=== PATIENT | female | born 1970 | race Caucasian/White ===

== ENCOUNTER 2021-09-20 13:08 | Emergency (ER) | payer BC, SELFPAY ==
[2021-09-20 13:42] VITALS: BP 123/100; PULSE 99; RESP 20; TEMP 37.1; O2SAT 98; BMI 26.3
--- NOTE | 2021-09-20 14:01 | ED_ITS ---
HPI - General Adult General Time Seen by Provider: 14:01 Date Seen: 09/20/21 Chief complaint: Headache/Migraine Stated complaint: Dizziness, weakness, head/neck pain Time Seen by Provider: 09/20/21 13:10 Source: patient Mode of arrival: ambulatory Limitations: no limitations History of Present Illness HPI narrative: Patient is a 51 year white female had a lumbar puncture to rule out MS at [facility] 4 days ago. She has had a headache and neck stiffness and back pain since. Her neurologist wants her to have a blood patch, and she was unable to go back to [place] to get this done so she presents to our ER. She denies fever chills cough, her health history is reviewed. She is not on blood thinners by her report. Related Data Home Medications Medication Instructions Recorded Confirmed armodafinil 250 mg tablet 250 mg PO DAILY 09/20/21 09/20/21 clonazepam 2 mg tablet 2 mg PO DAILY 09/20/21 09/20/21 dextroamphetamine-amphetamine 20 20 mg PO TID 09/20/21 09/20/21 mg tablet duloxetine 60 mg capsule,delayed 60 mg PO DAILY 09/20/21 09/20/21 release omeprazole 40 mg capsule,delayed 40 mg PO DAILY 09/20/21 09/20/21 release Allergies Allergy/AdvReac Type Severity Reaction Status Date / Time prochlorperazine Allergy Verified 09/20/21 13:49 [From Compazine] Review of Systems Status of ROS: Reports: 6 or more systems reviewed and unremarkable except as noted in History and below [facility] Social History Smoking Status: Current every day smoker What tobacco products do you use: cigarettes Do you use any of these nicotine containing products: None Second hand tobacco smoke exposure: No How often do you have a drink containing alcohol: 4 or more times a week AUDIT-C Alcohol total score: 4 Non-prescribed substance use: denies use Exam Narrative: Exam Narrative: Objective: Patient is alert orient x3, noncyanotic, noted apparent distress Neck is supple nontender Blood pressure slightly elevated diastolic, afebrile HEENT otherwise unremarkable neurologic grossly nonfocal patient is ambulatory and moving well. She has no obvious nuchal rigidity but does report neck stif fness when she moves her neck around. Good peripheral perfusion noted Const: Vital Signs, click to edit/add: Vital Signs - 24 hr 09/20/21 13:42 09/20/21 15:39 09/20/21 16:00 Temperature 98.8 F Pulse Rate [Right Pulse Oximeter] 99 73 68 Respiratory Rate 20 16 16 Blood Pressure [Ri ght Upper Arm] 123/100 H 115/80 126/82 Pulse Oximetry 98 97 98 Oxygen Delivery Me thod Room Air Room Air Room Air 09/20/21 16:30 Temperature Pulse Rate [Right Pulse Oximeter] 72 Respiratory Rate 16 Blood Pressure [Ri ght Upper Arm] 124/88 Pulse Oximetry 100 Oxygen Delivery Me thod Room Air Course Vital Signs Vital signs: Initial Vital Signs Temperature 98.8 F 09/20/21 13:42 Temperature Source Oral 09/20/21 13:42 Pulse Rate 99 09/20/21 13:42 Respiratory Rate 20 09/20/21 13:42 Blood Pressure 123/100 H 09/20/21 13:42 Blood Pressure Mean 107 09/20/21 13:42 Blood Pressure Position Sitting 09/20/21 13:42 Pulse Oximetry 98 09/20/21 13:42 Oxygen Delivery Method 09/20/21 13:42 Vital Signs Temperature 98.8 F 09/20/21 13:42 Pulse Rate 99 09/20/21 13:42 Respiratory Rate 20 09/20/21 13:42 Blood Pressure 123/100 H 09/20/21 13:42 Pulse Oximetry 98 09/20/21 13:42 Oxygen Delivery Method 09/20/21 13:42 Temperature 98.8 F 09/20/21 13:42 Pulse Rate 72 09/20/21 16:30 Respiratory Rate 16 09/20/21 16:30 Blood Pressure 124/88 09/20/21 16:30 Pulse Oximetry 100 09/20/21 16:30 Oxygen Delivery Method 09/20/21 16:30 Medical Decision Making MDM Narrative Medical decision making narrative: The patient has had a lumbar puncture at [facility] to diagnose MS, and has likely a spinal headache causing most of her symptoms. Her neurologist wishes to have a blood patch, will consult with [employer] is to perform a blood patch. Will gi IV fluid and IV Dilaudid, will check labs. Addendum: The patient's lab studies look reassuring in terms of the Chem profile and CBC. The patient by Anesthesia had a blood patch pacer placed, she is given an additional 0.5 of Dilaudid IV, and received a L of fluid. The patient will be allowed to discharge home after 30 minutes. Stay recumbent for least the next 12 hours, follow anesthesia recommendations. Recheck as needed Lab Data Labs: Lab Results 09/20/21 09/20/21 Range/Units 14:10 14:10 WBC 7.52 (4.50-11.00) K/uL RBC 4.50 (4.00-5.20) m/uL Hgb 14.0 (12.0-16.0) gm/dL Hct 42.1 (33.0-51.0) % MCV 94 (80-100) fL MCH 31 (26-34) pg MCHC 33 (32-36) gm/dL RDW Coeff of Julian 12.4 (11.5-15.5) % Plt Count 328 (140-440) K/uL Neut % (Auto) 52.0 (42.0-72.0) % Lymph % (Auto) 33.5 (20-44) % [place] % (Auto) 6.6 (0.0-11.0) % Eos % (Auto) 7.3 H (0.0-7.0) % Baso % (Auto) 0.5 (0.0-3.0) % Neut # (Auto) 3.90 (1.7-7.0) K/uL Lymph # (Auto) 2.52 (0.90-2.90) K/uL [place] # (Auto) 0.50 (0.00-0.90) K/UL Eos # (Auto) 0.50 (0.00-0.50) K/uL Baso # (Auto) 0.04 (0.00-0.30) K/uL Abs Immat Gran (auto) 0.01 (0.00-0.30) K/uL Sodium 138 (135-149) mmol/L Potassium 4.3 (3.6-5.1) mmol/L Chloride 103 (96-114) mmol/L Carbon Dioxide 31 (20-32) mmol/L BUN 15 (5-24) mg/dL Creatinine 0.7 (0.5-1.5) mg/dL Estimated Creat Clear 91.01 Estimated GFR 106 ml/min Glucose 90 (60-115) mg/dL Calcium 9.6 (8.4-10.6) mg/dL Discharge Plan Discharge Clinical Impression: Spinal headache Patient Disposition: Home w/ Parent or Adult Condition: Stable Additional Instructions: Rest, fluids, follow-up as per [employer] anesthesia recommendations. Activity Level: Light activity Discharge Diet: Regular Prescriptions: No Action armodafinil 250 mg tablet 250 mg PO DAILY Label Comments: Take 1 tablet by mouth every morning clonazepam 2 mg tablet 2 mg PO DAILY dextroamphetamine-amphetamine 20 mg tablet 20 mg PO TID duloxetine 60 mg capsule,delayed release(DR/EC) 60 mg PO DAILY omeprazole 40 mg capsule,delayed release(DR/EC) 40 mg PO DAILY Follow Up/Referrals: Marlo Steward MD [Primary Care Provider] - Stand Alone Forms: [employer] Info Instructions
[2021-09-20 14:14] LABS: Basophils Absolute Auto 0.04 K/uL (0.00-0.30); Basophils Percent Auto 0.5 % (0.0-3.0); Eosinophils Percent Auto 7.3 % (0.0-7.0); Hematocrit 42.1 % (33.0-51.0); Immature Granulocytes Abs Auto 0.01 K/uL (0.00-0.30); Lymphocytes Absolute Auto 2.52 K/uL (0.90-2.90); Lymphocytes Percent Auto 33.5 % (20-44); Mean Corpuscular HGB Conc 33 gm/dL (32-36); Mean Corpuscular Hemoglobin 31 pg (26-34); Mean Corpuscular Volume 94 fL (80-100); Monocytes Percent Auto 6.6 % (0.0-11.0); Platelet Count* 328 K/uL (140-440); RDW Coefficient of Variation % 12.4 % (11.5-15.5); White Blood Count* 7.52 K/uL (4.50-11.00)
[2021-09-20 14:23] LABS: Slide Review Reflex No
[2021-09-20] MEDS: 0.9 % SODIUM CHLORIDE 1000 ml 1,000 ML 6000 ML IV (14:25)
[2021-09-20] MEDS: HYDROmorphone 0.5 mg/0.5 ml inj IVP ×2 (14:26→16:32)
[2021-09-20 14:30] LABS: Chloride* 103 mmol/L (96-114); Potassium* 4.3 mmol/L (3.6-5.1); Sodium* 138 mmol/L (135-149)
[2021-09-20 14:33] LABS: Blood Urea Nitrogen* 15 mg/dL (5-24); Carbon Dioxide* 31 mmol/L (20-32); Creatinine* 0.7 mg/dL (0.5-1.5); Est. Creatinine Clearance* 91.01; Estimated Glomerular Filt Rate 106 ml/min
[2021-09-20 14:34] LABS: Calcium* 9.6 mg/dL (8.4-10.6); Glucose* 90 mg/dL (60-115)
[2021-09-20 15:39] VITALS: BP 115/80; PULSE 73; RESP 16; O2SAT 97
--- NOTE | 2021-09-20 15:50 | P.ANBPRC_ITS ---
Meds Home Medications and Allergies Home Medications Medication Instructions Recorded Confirmed Type armodafinil 250 mg tablet 250 mg PO DAILY 09/20/21 09/20/21 History clonazepam 2 mg tablet 2 mg PO DAILY 09/20/21 09/20/21 History dextroamphetamine-amphetamine 20 20 mg PO TID 09/20/21 09/20/21 History mg tablet duloxetine 60 mg capsule,delayed 60 mg PO DAILY 09/20/21 09/20/21 History release omeprazole 40 mg capsule,delayed 40 mg PO DAILY 09/20/21 09/20/21 History release Allergies Allergy/AdvReac Type Severity Reaction Status Date / Time prochlorperazine Allergy Verified 09/20/21 13:49 [From Compazine] Results Labs Labs: Laboratory Results - last 24 hr 09/20/21 09/20/21 14:10 14:10 WBC 7.52 RBC 4.50 Hgb 14.0 Hct 42.1 MCV 94 MCH 31 MCHC 33 RDW Coeff of Julian 12.4 Plt Count 328 Neut % (Auto) 52.0 Lymph % (Auto) 33.5 [place] % (Auto) 6.6 Eos % (Auto) 7.3 H Baso % (Auto) 0.5 Neut # (Auto) 3.90 Lymph # (Auto) 2.52 [place] # (Auto) 0.50 Eos # (Auto) 0.50 Baso # (Auto) 0.04 Abs Immat Gran (auto) 0.01 Sodium 138 Potassium 4.3 Chloride 103 Carbon Dioxide 31 BUN 15 Creatinine 0.7 Estimated Creat Clear 91.01 Estimated GFR 106 Glucose 90 Calcium 9.6 Vital Signs Vital Signs: Last Vital Signs Temp 98.8 F 09/20/21 13:42 Pulse 99 09/20/21 13:42 Resp 20 09/20/21 13:42 BP 123/100 H 09/20/21 13:42 Pulse Ox 98 09/20/21 13:42 O2 Del Method 09/20/21 13:42 Weight: 73.936 kg Height: 167.64 cm Anesthesia Procedures Epidural Blood Patch Patient Location: ED Start Time: 15:00 Stop Time: 15:45 Reason for Blood Patch: spinal headache and CSF leak CUSHION INSTALLER: Tucker Winston Preanesthetic Checklist: IV checked, risks and benefits discussed, surgical consent, monitors and equipment checked, pre-op evaluation, timeout performed and anesthesia consent Patient Symptoms: postural headache and photophobia Pain (1-10): 8 Pain duration: 1 day Pain Frequency: intermittent Quality of Pain: aching, pressure and throbbing Pain exacerbated by: cough/straining, standing and sitting Pain Made Worse: body movement Pain made better: darkness and position change Diagnosis of PDPH: Yes Volume of Blood Injected (mL): 20 Patient Position: sitting Prep: Chloraprep Monitoring: cont pulse oximetry and BP monitoring Approach: midline Location: L4-5 Injection Technique: SAAD saline Injection Method: Touhy needle Needle Gauge Used: 17 Needle Length (cm): 10 cm Notes: Post dural puncture headache from diagnostic lumbar puncture at another facility
[2021-09-20 16:00] VITALS: BP 126/82; PULSE 68; RESP 16; O2SAT 98
[2021-09-20 16:30] VITALS: BP 124/88; PULSE 72; RESP 16; O2SAT 100
== END 2021-09-20 16:39 | disposition home or self-care (01) ==
LOC: ED 14:28
PROVIDERS: Emergency Provider Family Medicine; PCP Surgery
DX: T88.59XA Other complications of anesthesia, initial encounter (principal); G44.40 Drug-induced headache, not elsewhere classified, not intractable
CPT/HCPCS: 36415; 62273; 80048; 85025; 96361; 96374; 96376; 99284; J1170; J7030

== ENCOUNTER 2021-09-23 12:28 | Emergency (ER) | payer BC, SELFPAY ==
[2021-09-23 12:36] VITALS: BP 105/74; PULSE 102; RESP 18; TEMP 37.1; O2SAT 98; BMI 26.3
--- NOTE | 2021-09-23 13:21 | ED.GENADULT ---
HPI - General Adult General Time Seen by Provider: 13:10 Date Seen: 09/23/21 Chief complaint: Headache/Migraine Stated complaint: Needs blood patch, dizzy Time Seen by Provider: 09/23/21 12:36 Source: patient, RN notes reviewed and other (Neurologist order for blood patch with patient) Mode of arrival: ambulatory Limitations: no limitations History of Present Illness HPI narrative: Patient is returning to our ER with complaint of ongoing headache after lumbar puncture. About a week ago she had a lumbar puncture at [facility] done outpatient to further evaluate or rule out multiple sclerosis. She developed a severe posterior headache that radiated up over her head. She had a blood patch here done 813. She states for a day maybe 2 she almost was back to baseline without a headache and it started to worsen again. She denies any fevers or chills with this, has not felt like she has had illness. She has been trying to rest, stay hydrated, did drink coffee and tea this morning for caffeine. She does admit that it does feel better when she is laying down and resting but it is not going away. Her neurologist gave her an order for repeat blood patch here today. She had actually went to [facility] to have injections in the occipital area but the supposedly cancel that and told her to get a repeat blood patch. She is being evaluated for multiple sclerosis for episodes of leg weakness and episodes of speech difficulty per her report. She states she does have some T2 signal changes on her MRI and that today are in the process of working this up. Dr. Nathan Soto Jr. is the ordering neurologist for her blood patch on the paperwork today. Related Data Home Medications Medication Instructions Recorded Confirmed armodafinil 250 mg tablet 250 mg PO DAILY 09/20/21 09/20/21 clonazepam 2 mg tablet 2 mg PO DAILY 09/20/21 09/20/21 dextroamphetamine-amphetamine 20 20 mg PO TID 09/20/21 09/20/21 mg tablet duloxetine 60 mg capsule,delayed 60 mg PO DAILY 09/20/21 09/20/21 release omeprazole 40 mg capsule,delayed 40 mg PO DAILY 09/20/21 09/20/21 release Allergies Allergy/AdvReac Type Severity Reaction Status Date / Time prochlorperazine Allergy Verified 09/20/21 13:49 [From Compazine] Review of Systems Status of ROS: Reports: 6 or more systems reviewed and unremarkable except as noted in History and below [facility] Social History Smoking Status: Current every day smoker What tobacco products do you use: cigarettes Do you use any of these nicotine containing products: None Second hand tobacco smoke exposure: No How often do you have a drink containing alcohol: 4 or more times a week AUDIT-C Alcohol total score: 4 Non-prescribed substance use: denies use Exam Const: Vital Signs, click to edit/add: Vital Signs - 24 hr 09/23/21 12:36 Temperature 98.7 F Pulse Rate [Right Pulse Oximeter] 102 H Respiratory Rate 18 Blood Pressure [Ri ght Upper Arm] 105/74 Pulse Oximetry 98 Oxygen Delivery Me thod Room Air Documenting provider has reviewed patient's vital signs: yes Common normals: no apparent distress, average body habitus, oriented x3, no limitations, healthy appearing, alert and well nourished General appearance: cooperative, comfortable and well kempt HENMT: Common normals: normocephalic, head/scalp atraumatic, hearing grossly normal bilaterally, external ears normal, external nose normal, nasal mucous membranes and turbinates normal, moist oral mucous membranes, oropharynx normal, dentition normal and gingiva normal Head and scalp: normocephalic and atraumatic Nose: external nose normal and nasal mucous membranes and turbinates normal External ear: external ears normal Eye: Common normals: PERRL, EOMs intact bilaterally, conjunctivae normal and no scleral icterus Conjunctiva: conjunctiva(e) normal Pupil: PERRL Neck & C-Spine: Common normals: full ROM, no lymphadenopathy, supple, no meningeal signs, no JVD and thyroid normal Thyroid: thyroid normal Resp: Common normals: normal respiratory effort, no retractions, no use of accessory muscles and clear to auscultation bilaterally Auscultation: clear to auscultation bilaterally Cardio: Common normals: no JVD, regular rate, regular rhythm, S1 normal heart sound, S2 normal heart sound, no gallops, no clicks and no murmurs Rate: regular rate Rhythm: regular rhythm Heart sounds: S1 normal and S2 normal GI: Common normals: Normal to inspection, nondistended, normoactive bowel sounds present, soft to palpation, non-tender, no hepatosplenomegaly and no masses Palpation: soft and no hepatosplenomegaly Extremity: Common normals: normal to inspection, full ROM, normal capillary refill, no joint enlargement, no clubbing, cyanosis or edema, no calf tenderness and no pedal edema Neuro: [place] Coma Scale: document GCS findings Anu coma scale eye opening: Spontaneous (4) Anu coma scale verbal response: Orientated (5) [place] coma scale motor response: Obey commands (6) [place] coma scale total score: 15 Common normals: oriented x3, CN's II-XII intact bilaterally, moves all extremities, no focal motor deficits, no sensory deficits noted and gait normal Sensorium/orientation: alert Meningeal signs: no meningeal signs Motor exam: strength 5/5 throughout, no tremor noted, no fasciculations and muscle tone normal throughout Psych: Appearance: well kempt Course Course Hospital Course: Am waiting to hear back from Anesthesia, did take the order over to Anesthesia Department right after I completed my initial assessment of the patient. She understands that I cannot promise that they will do the blood patch, this is ultimately up to their discretion. I a do not see any other evidence for needing further blood work, any further neurologic workup at this time. Will await anesthesia is input into this matter. Reevaluation(s) Reevaluation #1: Just spoke with Anesthesia home completed the blood patch. Patient after the blood patch started complaining of low back pain and pressure which they do not feel is out of the question given this was her 2nd blood patch. Patient is seen and she is tearful. She had asked me for IV Dilaudid earlier which I declined. She had also asked Anesthesia for some pills for pain which he declined. I have discussed with her that we certainly can try some IV Toradol. Anesthesia recommended Tylenol and ibuprofen postprocedure once home. We certainly can try Benadryl and Reglan in a have reviewed this with the patient. At this time she would like to proceed with the Toradol. Anesthesia did start a L of IV fluid as well. She will need to rest 30-45 minutes flat. Time: 14:55 Reevaluation #2: Patient is seen about 10 minutes before anesthesia had agree to allow her to get up. She asked if there is something more she can have for this pain. I asked what pain she was having. She is having pressure in her low back now. She points to pain along the left occiput put that shooting over the head and burning type pain. Reviewed that the head pain certainly could be occipital neuralgia which I do not have a quick fix for. I would recommend followup with Neurology. Did review with her that we were not going to use narcotics and she did get upset with me stating she did not ask for narcotic. I reviewed with her alternative management for headaches such as Reglan and Benadryl or treatment of pain with our IV ketamine protocol. 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 We discussed these medicines and agreed upon ketamine. I have ordered the ketamine IV piggyback 20 mg. Once the ketamine has been infused she will hopefully be ready for discharge. Time: 15:43 Vital Signs Vital signs: Initial Vital Signs Temperature 98.7 F 09/23/21 12:36 Temperature Source Temporal Artery Scan 09/23/21 12:36 Pulse Rate 102 H 09/23/21 12:36 Respiratory Rate 18 09/23/21 12:36 Blood Pressure 105/74 09/23/21 12:36 Blood Pressure Mean 84 09/23/21 12:36 Blood Pressure Position Sitting 09/23/21 12:36 Pulse Oximetry 98 09/23/21 12:36 Oxygen Delivery Method 09/23/21 12:36 Vital Signs Temperature 98.7 F 09/23/21 12:36 Pulse Rate 102 H 09/23/21 12:36 Respiratory Rate 18 09/23/21 12:36 Blood Pressure 105/74 09/23/21 12:36 Pulse Oximetry 98 09/23/21 12:36 Oxygen Delivery Method 09/23/21 12:36 Temperature 98.7 F 09/23/21 12:36 Pulse Rate 86 09/23/21 16:30 Respiratory Rate 18 09/23/21 16:30 Blood Pressure 134/93 H 09/23/21 16:30 Pulse Oximetry 100 09/23/21 16:30 Oxygen Delivery Method 09/23/21 16:30 Critical Care Time Critical Care Time Critical Care Time: No Discharge Plan Discharge Clinical Impression: Spinal headache Patient Disposition: Home, Self-Care Condition: Stable Instructions: Epidural Blood Patch (DC), Lumbar Puncture (ED) Additional Instructions: Follow-up with your neurologist as soon as you are able to. If they feel that you need further treatment with a blood patch, this care cannot be provided through [facility] and will need to go to a higher level of care for consideration of the blood patch being done under fluoroscopy. Our transformation manager here will not do another 1 for this headache. They recommend staying hydrated, ongoing management with Tylenol and ibuprofen per bottle directions, continued use of caffeine. Activity Level: Activity as Tolerated Prescriptions: No Action armodafinil 250 mg tablet 250 mg PO DAILY Label Comments: Take 1 tablet by mouth every morning clonazepam 2 mg tablet 2 mg PO DAILY dextroamphetamine-amphetamine 20 mg tablet 20 mg PO TID duloxetine 60 mg capsule,delayed release(DR/EC) 60 mg PO DAILY omeprazole 40 mg capsule,delayed release(DR/EC) 40 mg PO DAILY Follow Up/Referrals: Marlo Steward MD [Primary Care Provider] - Stand Alone Forms: [employer] Info Instructions
--- NOTE | 2021-09-23 14:18 | ED.NURSE ---
Anesthesia in to see pt.
--- NOTE | 2021-09-23 14:37 | ED.NURSE ---
Anesthesia in to do blood patch.
--- NOTE | 2021-09-23 14:55 | PM.ANBPRC ---
[facility] Social History Smoking Status: Current every day smoker What tobacco products do you use: cigarettes Do you use any of these nicotine containing products: None Second hand tobacco smoke exposure: No How often do you have a drink containing alcohol: 4 or more times a week AUDIT-C Alcohol total score: 4 Non-prescribed substance use: denies use Meds Home Medications and Allergies Home Medications Medication Instructions Recorded Confirmed Type armodafinil 250 mg tablet 250 mg PO DAILY 09/20/21 09/20/21 History clonazepam 2 mg tablet 2 mg PO DAILY 09/20/21 09/20/21 History dextroamphetamine-amphetamine 20 20 mg PO TID 09/20/21 09/20/21 History mg tablet duloxetine 60 mg capsule,delayed 60 mg PO DAILY 09/20/21 09/20/21 History release omeprazole 40 mg capsule,delayed 40 mg PO DAILY 09/20/21 09/20/21 History release Allergies Allergy/AdvReac Type Severity Reaction Status Date / Time prochlorperazine Allergy Verified 09/20/21 13:49 [From Compazine] Results Vital Signs Vital Signs: Last Vital Signs Temp 98.7 F 09/23/21 12:36 Pulse 102 H 09/23/21 12:36 Resp 18 09/23/21 12:36 BP 105/74 09/23/21 12:36 Pulse Ox 98 09/23/21 12:36 O2 Del Method 09/23/21 12:36 Weight: 73.936 kg Height: 167.64 cm Anesthesia Procedures Epidural Blood Patch Patient Location: ED Start Time: 14:00 Stop Time: 14:55 Reason for Blood Patch: spinal headache Anesthesiologist: Catrachito PAPER BALING MACHINE OPERATOR: Margie Preanesthetic Checklist: IV checked, risks and benefits discussed (Discussed with patinet and . including but not limited to bleeding, infection, damage to surrounding tissues, worsening of symptoms, PDPH, SDH, Chronic neurological sequelae,), surgical consent, monitors and equipment checked, pre-op evaluation, timeout performed and anesthesia consent Patient Symptoms: postural headache, nausea and photophobia Pain (1-10): 8 Pain duration: 3 days Pain Frequency: frequently (when sitting or standing) Quality of Pain: boring, pressure and throbbing Pain exacerbated by: standing and sitting Pain made better: position change, rest and sleep Diagnosis of PDPH: Yes Volume of Blood Injected (mL): 17 (dasha began feeling pressure in her lower back and injection was stopped) Patient Position: sitting Prep: Chloraprep Monitoring: cont pulse oximetry Approach: midline Location: L4-5 Injection Technique: SAAD saline Injection Method: Touhy needle Needle Gauge Used: 17 Needle Length (cm): 10 cm Notes: lumbar puncture 1 week ago at OSH, EBP 3 days ago with approx 1.5-2 days of relief.
[2021-09-23 14:59] VITALS: BP 121/88; PULSE 80; RESP 15; O2SAT 100
[2021-09-23] MEDS: 0.9 % SODIUM CHLORIDE 1000 ml 1,000 ML IV (15:06)
[2021-09-23] MEDS: KETOROLAC 30 MG/ML inj IVP (15:07)
[2021-09-23 15:30] VITALS: BP 118/79; PULSE 73; RESP 15; O2SAT 100
[2021-09-23 16:00] VITALS: BP 121/84; PULSE 73; RESP 12; O2SAT 97
[2021-09-23] MEDS: KETAMINE HCL 20 MG in 0.9 % SODIUM CHLORIDE 100 ml 100 ML 200.4 MG IVPB (16:16)
[2021-09-23 16:30] VITALS: BP 134/93; PULSE 86; RESP 18; O2SAT 100
== END 2021-09-23 16:57 | disposition home or self-care (01) ==
PROVIDERS: Emergency Provider Family Medicine; PCP Surgery
DX: G44.85 Primary stabbing headache (principal); G97.1 Other reaction to spinal and lumbar puncture
CPT/HCPCS: 96365; 96375; 99283; 99284; J1885; J3490; J7030

== ENCOUNTER 2021-11-28 10:35 | Emergency (ER) | payer BC, SELFPAY ==
[2021-11-28 10:44] VITALS: BP 134/98; PULSE 93; RESP 18; TEMP 36.5; O2SAT 99; BMI 25.2
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
--- NOTE | 2021-11-28 11:02 | CRLHL7_ITS ---
For Patients: As a result of the Cures Act, medical imaging exams and procedure reports are released immediately into your electronic medical record. You may view this report before your referring provider. If you have questions, please contact your health care provider. Indication: RE-INJURED RIGHT HAND, KNOWN FX Technique: Three views right hand Comparison: 11/21/2021 Findings: Displaced fracture at the proximal diaphysis of the 5th metacarpal again noted with mild dorsal displacement of the distal fracture fragment. A mildly displaced fracture of the proximal 4th metacarpal is also present. The carpal bones appear intact. Intact phalanges. Impression: Fractures at the proximal 4th and 5th metacarpals. Dictated by Neno Fitzgerald MD @ 11/28/2021 11:43:31 AM (Electronically Signed)
[2021-11-28] MEDS: OXYCODONE 5 MG TABLET PO (12:14)
--- NOTE | 2021-11-28 12:21 | ED.NURSE ---
dr. feliz [facility]
== END 2021-11-28 12:22 | disposition home or self-care (01) ==
PROVIDERS: Emergency Provider Family Medicine; PCP Surgery
DX: S62.306A Unspecified fracture of fifth metacarpal bone, right hand, initial encounter for closed fracture (principal); S62.302A Unspecified fracture of third metacarpal bone, right hand, initial encounter for closed fracture; X58.XXXA Exposure to other specified factors, initial encounter; Y93.9 Activity, unspecified; Y92.9 Unspecified place or not applicable; Y99.9 Unspecified external cause status
CPT/HCPCS: 29125; 73130; 99283; A9270

== ENCOUNTER 2021-12-03 07:04 | Day surgery (SDC) | payer BC, SELFPAY ==
[2021-12-03] VITALS (7 sets, daily range): BP systolic 111–133; BP diastolic 80–91; PULSE 71–85; RESP 16; TEMP 36.6; O2SAT 96–99; BMI 25.7
[2021-12-03] MEDS: LACTATED RINGERS 1000 ML 1,000 ML 100 ML IV (07:51)
[2021-12-03] MEDS: SODIUM CHLORIDE 0.9 % (FLUSH) 10 ML SYRINGE IVF (07:51)
--- NOTE | 2021-12-03 08:02 | CRLHL7_ITS ---
For Patients: As a result of the Cures Act, medical imaging exams and procedure reports are released immediately into your electronic medical record. You may view this report before your referring provider. If you have questions, please contact your health care provider. Indication: 5TH METACARPAL FRACTURE Technique: Three fluoroscopic images right hand. Fluoroscopic time 21 seconds. IMPRESSION: Fluoroscopic guidance for percutaneous fixation of 5th metacarpal fracture. Dictated by Neno Fitzgerald MD @ 12/03/2021 11:02:36 AM (Electronically Signed)
--- NOTE | 2021-12-03 08:05 | SUR.PREOP ---
TIME?OUT:?0806 PT/RN/MDA?VERIFICATION?OF?SURGICAL?SITE,?PROCEDURE,?AND?CONSENT OBTAINED?PRIOR?TO?INVASIVE?PROCEDURE.
[2021-12-03] MEDS: fentaNYL 100 MCG/2 ML inj IVP (08:08)
[2021-12-03] MEDS: MIDAZOLAM HCL 1 MG/ML inj IVP (08:08)
--- NOTE | 2021-12-03 09:08 | W.PM.NB ---
Nerve Block Nerve Block Time Seen by Provider: 08:10 Date Seen: 12/03/21 Type of block requested by surgeon for post-operative analgesia: axillary Side: right Time out performed: Yes Verification of patient name: Yes Verification of date of : Yes Site marking: site marked Name of person performing procedure: Catrachito Continuous monitoring Was continuous monitoring of O2 sat, B/P, senior escrow officer, recorded every 15 minutes?: Yes Procedure Checklist: sterile prep, needles and gloves Ultrasound guided. Images saved: Yes Medications given in 5ml increments after negative aspiration: Ropivicaine %: 0.5 mL: 30 Needle gauge: 22 Patient tolerated procedure well: Yes Additional comments: Needle noted adjacent to nerve Block Charges Block Charge (with Pro Fee): Brachial Plexus Use of Ultrasound Machine for Block: Yes- US Guidance/pain block
--- NOTE | 2021-12-03 09:24 | W.ANESCHARGE ---
Anesthesia Charges Start Date/Time Anesthesia Start Date: 12/03/21 Anesthesia Start Time: 08:22 Stop Date/Time Anesthesia Stop Date: 12/03/21 Anesthesia Stop Time: 09:19 Summary Emergency: No
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
--- NOTE | 2021-12-03 10:24 | W.ANESCHARGE ---
Anesthesia Charges Start Date/Time Anesthesia Start Date: 12/03/21 Anesthesia Start Time: 08:22 Stop Date/Time Anesthesia Stop Date: 12/03/21 Anesthesia Stop Time: 09:19 Summary Emergency: No
== END 2021-12-03 10:58 | disposition home or self-care (01) ==
PROVIDERS: PCP Surgery; Visit Provider Orthopaedic Surgery Sports Medicine
PROC: (CPT 26608; principal; 2021-12-03 08:30)
DX: S62.314A Displaced fracture of base of fourth metacarpal bone, right hand, initial encounter for closed fracture (principal); S62.316A Displaced fracture of base of fifth metacarpal bone, right hand, initial encounter for closed fracture
CPT/HCPCS: 26608 ×2; 01830; 64415; 73120; 73130; 76000; 76942; J2250; J2704; J2795; J3010; J3490; J7120

== ENCOUNTER 2022-01-13 10:30 | Outpatient (RCR) | payer BC, SELFPAY | END 2022-08-27 23:59 | disposition home or self-care (01) | PROVIDERS: PCP Surgery; Visit Provider Physician Assistant Surgical | DX: S62.309D Unspecified fracture of unspecified metacarpal bone, subsequent encounter for fracture with routine healing (principal); S62.90XD Unspecified fracture of unspecified hand, subsequent encounter for fracture with routine healing; Z51.89 Encounter for other specified aftercare | CPT/HCPCS: 97110; 97140; 97165; L3806; X5282 ==

== ENCOUNTER 2022-02-09 23:20 | Emergency (ER) | payer BC, SELFPAY ==
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
[2022-02-09 23:26] VITALS: BP 147/97; PULSE 97; RESP 16; TEMP 36.6; O2SAT 98
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
[2022-02-09] MEDS: OxyCODONE/APAP 5-325 TABLET 1 TAB PO (23:40)
[2022-02-09] MEDS: KETOROLAC 30 MG/ML inj IM (23:40)
[2022-02-09] MEDS: BACITRACIN OINTMENT BULK TUBE 1 APPLIC TOPICAL (23:50)
[2022-02-10] MEDS: fentaNYL 100 MCG/2 ML inj 25 MCG IM (00:09)
--- NOTE | 2022-02-10 00:13 | ED.NURSE ---
patient wound - applied bacitracin, nonstick telfa and kerlix wrapped. ice pack applied over top.
[2022-02-10 00:14] VITALS: BP 136/89; PULSE 89; RESP 16; TEMP 36.6
== END 2022-02-10 00:24 | disposition home or self-care (01) ==
PROVIDERS: Emergency Provider Family Medicine; PCP Surgery
DX: T23.191A Burn of first degree of multiple sites of right wrist and hand, initial encounter (principal); T20.10XA Burn of first degree of head, face, and neck, unspecified site, initial encounter; X03.0XXA Exposure to flames in controlled fire, not in building or structure, initial encounter
CPT/HCPCS: 96372; 99283; A9270; J1885; J3010

== ENCOUNTER 2023-10-22 20:16 | Emergency (ER) | payer OTHER, SELFPAY ==
[2023-10-22] VITALS (12 sets, daily range): BP systolic 130; BP diastolic 84; PULSE 92–118; RESP 16–18; TEMP 36.8; O2SAT 96–100; BMI 26.6
--- NOTE | 2023-10-22 20:43 | ED_ITS ---
HPI - General Adult General Chief complaint: Arrhythmia/Palpitations Stated complaint: Elevated heartrate, joint pain, dizzy Time Seen by Provider: 10/22/23 20:44 History of Present Illness HPI narrative: Pt c/o joint pain, elevated heart rate, and palpitations that pt is unsure of when started. 2 hydrocodone taken at 1715. Pt states she fell two weeks ago, hitting head on a rock, and is concerned that that has something to do with it. Pt states she has multiple conditions (MS, hx SVT, fibromyalgia, TBIs, etc.) 53-year-old woman presenting to the emergency department with complaints of pain primarily. Notes history of MS and RSD. History of low back pain and radiofrequency ablation is. Had a fall 2 weeks ago, maybe little bit less, striking the upper neck/occipital area on a rock and her low back as well. Has had some shocks in her right leg more recently and a little bit in her left. Wrists in particular bilaterally are very painful. Underlying history also fibromyalgia and occipital neuralgia as well. Notes that has had trouble bring down her heart rate recently. Primary is wondering for might be related to Adderall. No fevers. No rashes. Some complaint of epigastric area pain as well, intermittent. Related Data Home Medications ?Medication ?Instructions ?Recorded ?Confirmed armodafinil 250 mg tablet 250 mg PO DAILY 09/20/21 10/22/23 clonazepam 2 mg tablet 2.5 mg PO DAILY 09/20/21 10/22/23 dextroamphetamine-amphetamine 20 20 mg PO TID 09/20/21 10/22/23 mg tablet duloxetine 60 mg capsule,delayed 60 mg PO DAILY 09/20/21 10/22/23 release fluticasone propionate 50 intranasal PRN 12/01/21 01/06/22 mcg/actuation nasal spray,suspension duloxetine 30 mg capsule,delayed 30 mg PO QDAY 12/11/21 10/22/23 release pantoprazole 40 mg tablet,delayed 40 mg PO DAILY 10/22/23 10/22/23 release Previous Rx's ?Medication ?Instructions ?Recorded methylprednisolone 4 mg tablets in See Rx Instructions PO .COMPLEX 10/23/23 a dose pack (Medrol (Foster)) #21 ea methylprednisolone 4 mg tablets in See Rx Instructions PO .COMPLEX 10/23/23 a dose pack (Methylpred DP) #21 ea Allergies Allergy/AdvReac Type Severity Reaction Status Date / Time prochlorperazine Allergy Verified 10/22/23 20:40 [From Compazine] Review of Systems Status of ROS: Reports: 6 or more systems reviewed and unremarkable except as noted in History and below [facility] Medical History History of tibial fracture ?Z87.81 - Personal history of (healed) traumatic fracture (ICD-10) Hiatal hernia ?K44.9 - Diaphragmatic hernia without obstruction or gangrene (ICD-10) Blood disorder ?D75.9 - Disease of blood and blood-forming organs, unspecified (ICD-10) Asthma ?J45.909 - Unspecified asthma, uncomplicated (ICD-10) Hand fracture ?S62.90XA - Unspecified fracture of unspecified wrist and hand, initial encounter for closed fracture (ICD-10) Wrist pain ?M25.539 - Pain in unspecified wrist (ICD-10) Surgical History S/P right knee arthroscopy (06/24/07) ?Z98.890 - Other specified postprocedural states (ICD-10) History of hand surgery (09/17/08) ?Z98.890 - Other specified postprocedural states (ICD-10) S/P ORIF (open reduction internal fixation) fracture (12/31/06) ?Z98.890 - Other specified postprocedural states (ICD-10) ?Z87.81 - Personal history of (healed) traumatic fracture (ICD-10) Status post left foot surgery (03/08/17) ?Z98.890 - Other specified postprocedural states (ICD-10) H/O hand surgery (08/31/19) ?Z98.890 - Other specified postprocedural states (ICD-10) H/O hand surgery (12/03/21) ?Z98.890 - Other specified postprocedural states (ICD-10) H/O: hysterectomy ?Z90.710 - Acquired absence of both cervix and uterus (ICD-10) Social History Smoking Status: Current every day smoker What tobacco products do you use: cigarettes Do you use any of these nicotine containing products: None Second hand tobacco smoke exposure: No How often do you have a drink containing alcohol: 4 or more times a week How many standard drinks containing alcohol do you have on a typical day: 1 or 2 AUDIT-C Alcohol total score: 4 Non-prescribed substance use: denies use Caffeine: Yes Exam Narrative: Exam Narrative: Very pleasant. Speaking fluidly. Easily. Head looks to be atraumatic. Is diffusely tender in palpation over the back of the neck in the trapezial musculature. Is quite tense as well. Lungs are clear. Equal expansion excursion. Examination of the back otherwise with generalized low back tenderness particularly right greater than left SI joints. Not with discrete midline back tenderness. Heart is tachycardic in a regular rhythm. I do not appreciate any swelling about the wrists. Moving all extremities without difficulty with good strength. There is no lower extremity edema. She has no inflammatory changes. She is well-perfused. Abdomen is soft. No peritoneal signs. Not particularly tender. Const: Vital Signs, click to edit/add: Vital Signs - 24 hr 10/22/23 20:32 10/22/23 21:38 10/22/23 21:45 Temperature 98.3 F Pulse Rate 100 104 H Pulse Rate [Pulse Oximeter] 118 H Respiratory Rate 18 Blood Pressure [Ri ght Upper Arm] 130/84 Pulse Oximetry 99 100 99 Oxygen Delivery Me thod Room Air 10/22/23 22:00 10/22/23 22:15 10/22/23 22:30 Temperature Pulse Rate 97 97 102 H Pulse Rate [Pulse Oximeter] Respiratory Rate Blood Pressure [Ri ght Upper Arm] Pulse Oximetry 97 96 96 Oxygen Delivery Me thod 10/22/23 22:45 10/22/23 23:00 10/22/23 23:15 Temperature Pulse Rate 92 98 104 H Pulse Rate [Pulse Oximeter] Respiratory Rate Blood Pressure [Ri ght Upper Arm] Pulse Oximetry 96 97 99 Oxygen Delivery Me thod 10/22/23 23:24 10/22/23 23:30 10/22/23 23:45 Temperature Pulse Rate 103 H 103 H Pulse Rate [Pulse Oximeter] Respiratory Rate 16 Blood Pressure [Ri ght Upper Arm] Pulse Oximetry 98 99 Oxygen Delivery Me thod Documenting provider has reviewed patient's vital signs: yes Course Vital Signs Vital signs: Initial Vital Signs Temperature 98.3 F 10/22/23 20:32 Temperature Source Temporal Artery Scan 10/22/23 20:32 Pulse Rate 118 H 10/22/23 20:32 Respiratory Rate 18 10/22/23 20:32 Blood Pressure 130/84 10/22/23 20:32 Blood Pressure Mean 99 10/22/23 20:32 Blood Pressure Position Sitting 10/22/23 20:32 Pulse Oximetry 99 10/22/23 20:32 Oxygen Delivery Method Room Air 10/22/23 20:32 Vital Signs Temperature 98.3 F 10/22/23 20:32 Pulse Rate 118 H 10/22/23 20:32 Respiratory Rate 18 10/22/23 20:32 Blood Pressure 130/84 10/22/23 20:32 Pulse Oximetry 99 10/22/23 20:32 Oxygen Delivery Method Room Air 10/22/23 20:32 Temperature 98.3 F 10/22/23 20:32 Pulse Rate 89 10/23/23 01:42 Respiratory Rate 16 10/22/23 23:24 Blood Pressure 126/88 10/23/23 01:51 Pulse Oximetry 91 10/23/23 01:42 Oxygen Delivery Method Room Air 10/22/23 20:32 Medications Administered Medications: Discontinued Medications Generic Name Dose Route Start Last Admin Trade Name Freq PRN Reason Stop Dose Admin Hydromorphone HCl 0.5 mg 10/22/23 21:04 10/22/23 21:41 Hydromorphone 0.5 Mg/0.5 Ml Inj IVP 10/22/23 21:05 0.5 mg ONCE ONE Administration Hyoscyamine 0.25 mg 10/22/23 23:04 10/22/23 23:24 Hyoscyamine Sulfate 0.125 Mg Tab SUBLINGUAL 10/22/23 23:05 0.25 mg ONCE ONE Administration Hyoscyamine 0.25 mg 10/23/23 01:46 10/23/23 01:50 Hyoscyamine Sulfate 0.125 Mg Tab SUBLINGUAL 10/23/23 01:47 0.25 mg ONCE ONE Administration Sodium Chloride 1,000 mls @ 1,000 mls/hr 10/22/23 21:02 10/22/23 22:57 0.9 % Sodium Chloride 1000 Ml IV 10/22/23 22:01 Infused .Q1H ONE Infusion Ketamine HCl 20 mg/ Sodium 100.2 mls @ 200.4 mls/hr 10/22/23 23:04 10/23/23 00:11 Chloride IVPB 10/22/23 23:05 Infused ONCE ONE Infusion Ketorolac Tromethamine 15 mg 10/22/23 21:04 10/22/23 21:41 Ketorolac 15 Mg/Ml Inj IVP 10/22/23 21:05 15 mg ONCE ONE Administration Lorazepam 1 mg 10/23/23 00:26 10/23/23 00:38 Lorazepam 1 Mg Tablet PO 10/23/23 00:27 1 mg ONCE ONE Administration Methylprednisolone Sodium Succinate 93.75 mg 10/22/23 23:04 10/22/23 23:27 Methylprednisolone Sod Succ 62.5 Mg/Ml (125) IVP 10/22/23 23:05 93.75 mg ONCE ONE Administration Oxycodone/Acetaminophen 2 tab 10/23/23 00:26 10/23/23 00:38 Oxycodone/Apap 5-325 Tablet PO 10/23/23 00:27 2 tab ONCE ONE Administration Medical Decision Making MDM Narrative Medical decision making narrative: Challenging case here. I wonder if maybe is having a flare of MS. 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 Would offer some initial pain relief and possibly anxiety a lytic as well as potential benefit here of muscle relaxation. Maybe hyoscyamine would help with some stomach cramping. IV hydration. Will need to check a variety of labs. Considering recent fall and shocks of pain in extremities will image neck and pelvis/lumbar spine. Initially improved with treatments as above. White count and CRP mildly elevated. I did review CT images. Radiology over-read as below Discussed findings with Ms. Hatch. Technique: Noncontrast CT of the cervical spine multiplanar reconstruction utilizing bone and soft tissue algorithms. Comparison: CT cervical spine dated 07/26/2012. Findings: No acute fracture or traumatic subluxation. No lytic or blastic lesion. Normal vertebral alignment and stature. Unremarkable prevertebral soft tissues. No high-grade spinal canal stenosis. Multilevel neural foraminal narrowing, severe on the right at C6-C7. Impression: 1. No acute fracture or traumatic subluxation. 2. Multilevel degenerative changes, with severe right neural foraminal narrowing at C6-C7. Technique: CT of the pelvis without contrast Comparison: CT abdomen pelvis performed 08/16/2009 Findings: Bones: No acute fracture. No lytic or blastic lesion. Joints: No large effusion. No malalignment. Minimal degenerative changes of the SI joints. No large erosion or joint space widening or narrowing. No ankylosis. Mild acetabular osteoarthritis. Soft tissues: Left iliac venous stents, not well evaluated on this noncontrast examination. No other significant abnormality appreciated. Impression: No acute abnormality appreciated. Pain escalating again and writhing intermittently in apparent discomfort. Ketamine infusion trial with limited benefit. Did treat again for pain with a couple of tabs of Percocet. She does have opiate pain medication available. Discussed limitations of treatment in the emergency department. No further interventions to do and no indication of dangerous condition. Isolated white count and CRP elevation of uncertain etiology. While I am not convinced that these pain complaints are related, she did decline screening for COVID noting that she does not believe... And does not like the nasal swab. Expressed a good deal of distress that is having trouble with getting disability and maintaining health insurance therefore limited follow-ups particularly with Neurology/muscular sclerosis specialty. Has recently finally had found a good geriatric social worker who seems to be pursuing her case. Ms. Hatch has difficulty pursuing and filling out the needed paperwork on her own due to chronic visual challenges. Given Solu-Medrol as initial treatment for potential muscular sclerosis flare Easily ambulatory from the emergency department. Stable vitals and no longer tachycardic. See patient discharge plan for further discussion. Medical Records Medical records reviewed: Yes I reviewed the patient's medical records Lab Data Lab results reviewed: Yes I reviewed the patient's lab results Labs: Lab Results 10/22/23 10/22/23 Range/Units 21:30 21:49 WBC 14.36 H (4.50-11.00) K/uL RBC 4.31 (4.00-5.20) m/uL Hgb 13.2 (12.0-16.0) gm/dL Hct 40.6 (33.0-51.0) % MCV 94 (80-100) fL MCH 31 (26-34) pg MCHC 33 (32-36) gm/dL RDW Coeff of Julian 12.6 (11.5-15.5) % Plt Count 297 (140-440) K/uL Neut % (Auto) 84.1 H (42.0-72.0) % Lymph % (Auto) 10.7 L (20-44) % [place] % (Auto) 4.2 (0.0-11.0) % Eos % (Auto) 0.6 (0.0-7.0) % Baso % (Auto) 0.3 (0.0-3.0) % Neut # (Auto) 12.10 H (1.7-7.0) K/uL Lymph # (Auto) 1.50 (0.90-2.90) K/uL [place] # (Auto) 0.60 (0.00-0.90) K/UL Eos # (Auto) 0.10 (0.00-0.50) K/uL Baso # (Auto) 0.00 (0.00-0.30) K/uL Abs Immat Gran (auto) 0.00 (0.00-0.30) K/uL Imm/Tot Granulo (auto) 0.1 % Sodium 136 (135-149) mmol/L Potassium 4.0 (3.6-5.1) mmol/L Chloride 99 (96-114) mmol/L Carbon Dioxide 31 (20-32) mmol/L Anion Gap 6 L (7-15) mEq/L BUN 14 (7-30) mg/dL Creatinine 0.8 (0.5-1.5) mg/dL Estimated Creat Clear 74.86 Estimated GFR 89 ml/min Glucose 91 (60-115) mg/dL Calcium 9.3 (8.4-10.6) mg/dL Total Bilirubin 0.6 (0.1-1.5) mg/dL Direct Bilirubin 0.3 (0.0-0.5) mg/dL AST 39 H (12-35) U/L ALT 22 (4-35) U/L Alkaline Phosphatase 72 (40-150) U/L C-Reactive Protein 6.5 H (0.5-1.0) mg/dL Total Protein 7.0 (6.0-8.3) g/dL Albumin 4.6 (3.3-5.0) g/dL Urine Color Yellow (Yellow) Urine Appearance Clear (Clear) Urine pH 8.5 (5.0-8.5) Ur Specific Hedrick 1.015 (1.000-1.030) Urine Protein Negative (Negative) Urine Glucose (UA) Negative (Negative) Urine Ketones Negative (Negative) Urine Blood Trace-intact A (Negative) Urine Nitrite Negative (Negative) Urine Bilirubin Negative (Negative) Urine Urobilinogen 0.2 (0.2-1.0) Ur Leukocyte Esterase Negative (Negative) Urine RBC 0-2 (0-2) Urine WBC 0-2 (0-5) Ur Squamous Epith Cells Few (None-Few) Urine Bacteria Few A (None) Urine Opiates Screen POSITIVE A (Negative) Ur Oxycodone Screen Negative (Negative) Urine Methadone Screen Negative (Negative) Ur Barbiturates Screen Negative (Negative) U Tricyclic Antidepress Negative (Negative) Ur Phencyclidine Scrn Negative (Negative) Ur Amphetamines Screen POSITIVE A (Negative) U Methamphetamines Scrn Negative (Negative) U Benzodiazepines Scrn Negative (Negative) Urine Cocaine Screen Negative (Negative) U Marijuana (THC) Screen Negative (Negative) Ur Drug Screen Comment See Note ECG Data Attestation: I personally reviewed and interpreted this ECG as follows: (sinus tachycardia t 105) Discharge Plan Discharge Clinical Impression: Pain Patient Disposition: Home w/ Parent or Adult Condition: Improved Additional Instructions: Continue to hydrate. Please contact Dr. Pham for follow-up. Keep the ball rolling with that geriatric social worker. Please reach out to them on Wednesday. Prescribing a double Medrol Dosepak Prescriptions: New methylprednisolone [Methylpred DP] 4 mg tablets,dose pack See Rx Instructions .ROUTE .COMPLEX Qty: 21 0RF Rx Instructions: orally per package directions methylprednisolone [Medrol (Foster)] 4 mg tablets,dose pack See Rx Instructions .ROUTE .COMPLEX Qty: 21 0RF Rx Instructions: orally per package directions No Action duloxetine 30 mg capsule,delayed release(DR/EC) 30 mg PO QDAY armodafinil 250 mg tablet 250 mg PO DAILY Patient Comments: Take 1 tablet by mouth every morning clonazepam 2 mg tablet 2.5 mg PO DAILY dextroamphetamine-amphetamine 20 mg tablet 20 mg PO TID duloxetine 60 mg capsule,delayed release(DR/EC) 60 mg PO DAILY pantoprazole 40 mg tablet,delayed release (DR/EC) 40 mg PO DAILY fluticasone propionate 50 mcg/actuation spray,suspension INTRANASAL PRN Patient Comments: SHAKE LIQUID AND USE 1 SPRAY IN EACH NOSTRIL EVERY DAY Follow Up/Referrals: Marlo Steward MD [Primary Care Provider] - Stand Alone Forms: [employer] Info Instructions
--- NOTE | 2023-10-22 21:02 | CRLHL7_ITS ---
For Patients: As a result of the Century Cures Act, medical imaging exams and procedure reports are released immediately into your electronic medical record. You may view this report before your referring provider. If you have questions, please contact your health care provider. Indication: Right sacroiliac pain Technique: CT of the pelvis without contrast Comparison: CT abdomen pelvis performed 08/16/2009 Findings: Bones: No acute fracture. No lytic or blastic lesion. Joints: No large effusion. No malalignment. Minimal degenerative changes of the SI joints. No large erosion or joint space widening or narrowing. No ankylosis. Mild acetabular osteoarthritis. Soft tissues: Left iliac venous stents, not well evaluated on this noncontrast examination. No other significant abnormality appreciated. Impression: No acute abnormality appreciated. Please note that all CT scans at this facility use dose modulation, iterative reconstruction, and/or weight-based dosing when appropriate to reduce radiation dose to as low as reasonably achievable. Dictated by Juve Pereira MD @ 10/22/2023 10:29:36 PM (Electronically Signed)
--- NOTE | 2023-10-22 21:02 | CRLHL7_ITS ---
For Patients: As a result of the Century Cures Act, medical imaging exams and procedure reports are released immediately into your electronic medical record. You may view this report before your referring provider. If you have questions, please contact your health care provider. Indication: Fall. Technique: Noncontrast CT of the cervical spine multiplanar reconstruction utilizing bone and soft tissue algorithms. Comparison: CT cervical spine dated 07/26/2012. Findings: No acute fracture or traumatic subluxation. No lytic or blastic lesion. Normal vertebral alignment and stature. Unremarkable prevertebral soft tissues. No high-grade spinal canal stenosis. Multilevel neural foraminal narrowing, severe on the right at C6-C7. Impression: 1. No acute fracture or traumatic subluxation. 2. Multilevel degenerative changes, with severe right neural foraminal narrowing at C6-C7. Please note that all CT scans at this facility use dose modulation, iterative reconstruction, and/or weight-based dosing when appropriate to reduce radiation dose to as low as reasonably achievable. Dictated by Ant Medel MD @ 10/22/2023 9:52:27 PM (Electronically Signed)
--- OUTSIDE RECORDS SUMMARY | 2023-10-22 21:03 | XMS_ITS | Encounter Summary ---
Author Organization [facility] Address [address] [place] [address]. [place] [address] Care Team Providers Care Slurry Mixer Name Role Phone Doctor, None Primary Care Provider Marlo Aldridge MD Primary Care Provider [phone] Encounter Details Date Type Department Care Team (Late st Contact Info) Description 11/04/[address] [place] [address] [place] [address] [place] [address] Social History Tobacco Use Types Packs/Day Years Used Date Smoking Tobacco: Every Day Cigarettes 0.5 14 Smokeless Tobacco: Never Alcohol Use Standard Drinks/Week Comments Yes 0 (1 standard drink = 0.6 oz pur e alcohol) occasional Sex and Gender Information Value Date Recorded Sex Assigned at Not on file Gender Identity Not on file Sexual Orientation Not on file documented as of this encounter Progress Notes * 11/04/2001 11:59 PM CDTAddended by: LARA MAKI on: 12/23/2001,11:04 AM Modules accepted: Progress Notes 00 :00 Emergency Department Encounter-AARON TURNER) [Entered: 00:00 Transcr iption ([facility])] : 74 CHIEF COMPLAINT: Headache. HISTORY OF PRESENT ILLNESS: This is a 31- year-old female who complains of headache, swelling in her hands, fatigue, body aches, poor concentra tion, occasional slurring of her words when the pain is bad. She gets some dizziness and lightheadedn ess. This has gone on for about three weeks and it just seems to be progressively getting worse and worse over time. It was not a sudden onset, it has been building and associated with all of those sy mptoms. She has had no real abdominal pain, maybe slight nausea, no vomiting, no appetite. She has had a little bit of chills, but nothing predominant and no predominant fevers. PAST MEDICAL HISTORY: She has a history of deep vein thrombosis. 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 She also has a history of depression and she is status post total abdominal hysterectomy and bilateral salpingo-oop horectomy in 1995. MEDICATIONS: Effexor. Advil. ALLERGIES: COMPAZINE. REVIEW OF SYSTEMS: All s ystems negative except for that stated above. No neurologic symptomatology as far as weakness or loc alizing or numbness localizing. No chest pains or shortness of breath. SOCIAL HISTORY: She is [place] ied. She lives in [place] with her . PHYSICAL EXAMINATION: Temperature: 98.7. Pulse: 72. Respirations: 18. Blood Pressure: 123/73. Room air saturation 98%. Patient is alert, cooperat molly, in no respiratory distress. EYES: Pupils equal, round and reactive to light. Conjunctiva is c lear. LIDS not swollen. OROPHARYNX: Moist mucous membranes without erythema or lesion. NECK is manuel pple with no adenopathy. TRACHEA midline. No stridor. No jugular venous distension. No carotid br uit. BACK is nontender. CHEST: Symmetric CHEST rise inspiration. No sign of labored breathing. ANTON NGS clear to auscultation. No rub, rale, rhonchi or wheeze. Cardiovascular: Regular rate and rhyth m without murmur or rub. ABDOMEN soft, nondistended, nontender. EXTREMITIES: No clubbing, cyanosis or edema. Skin is well profused, no rash. EMERGENCY DEPARTMENT COURSE: She had been seen by Dr. Amber nogueira many times for this and has had an extensive workup. She just, as of yesterday, had recent labs drawn, so I went ahead and ordered up some results from the clinic to be faxed over here so I could review the results and what other tests were done. I also reviewed the CT scan results from today wh ich were essentially normal of her abdomen, except for a small simple cyst on the lower pole of the r ight kidney and then, of course, the stent in her left iliac vein. I gave her a Percocet orally for pain. I set her up for a CT scan because of the headache which was the biggest concern. There is a family history on her 's side of the family of what sounds like a subarachnoid hemorrhage and so with that concern, they wish to be checked. Also ordered a chemistry panel after reviewing the la bs done previously, also ordered blood cultures, urinalysis and a Lyme titer. I reviewed the results that showed that she had Geovanni Mercado, CMV, titers drawn but not done yet. her monospot was negativ e. Her white blood cell count was normal with a normal CBC, otherwise her ESR had a level of 2, so i t did not sound like this would be consistent with an inflammatory condition or an autoimmune disorde r. After the tests were completed, a CT scan was negative and the labs I sulma came back showing a ch emistry panel with a sodium 134, potassium 3.7, chloride 103, Bicarb 27, BUN 7, creatinine 0.8 and gl ucose of 108 with a Anion Gap of 8. Her white blood cell count was 7.1, hemoglobin 14, hematocrit of 42, and platelet count of 312 and her urinalysis was negative. At that point, I felt reassured that with the tests that I felt I could do at this point to add to the tests that were done recently, I f elt that some tests need to be followed up as far as the blood cultures, Lyme, titer and the rest of her blood are done by Dr. Dubose. I recommended that she see Dr. Dubose about midweek this coming up week for re-evaluation. CLINICAL IMPRESSION: 1) Headache. 2) Arthralgias. 3) Fatigue. ASSESS MENT: It appears that it sounds like more of a viral type illness. I think a RSV and the CMV will b e important. Lyme titer I think I am doing more to be conclusive, although she has never had any jimbo h or arthritis or real high fever associated with this. I did the blood cultures just to be thorough as well, but I really have no specific idea other than this. Probably some type of prolonged viral type of syndrome. Her headache appeared to be more musculoskeletal from examination of her neck at th e point tenderness of her occiput. She was tender there and I felt that was consistent with why she had her headache. This did sound like a subarachnoid hemorrhage she has had intermittent kind of wit h persistent dull pain with an intermittent sharp pain for three weeks. With all these other associ ated symptoms, I just feel it does not sound like a subarachnoid hemorrhage and with a normal CT I fe lt that no further workup was warranted as far as no lumbar puncture was required. CLINICAL PLAN: S he is to follow up with Dr. Dubose earlier this week as described. She needs Percocet one tablet lopez ry four to six hours as-needed, dispensed #16. She is to return if worsening. [id number]_ AARON Calix MD [place]: Document: [id number] [place], [place] Name: JOE HATCH EMERGENCY ROOM ENCOUNTER Page 3 of 2 LCN: Rachel Ryder DSC: 11/04/2001 [place], [place] Name: MR#: : Admit Date: RUSSELL Quiroz JOE Calix -49 1970 11/04/2001 Doctor: AARON TIMMONS MD EMERGENCY ROOM [facility] R Page 1 of 2 Electronically filed by Lara Maki 12/23/2001 11:03 AM documented in this encounter Plan of Treatment Not on file documented as of this encounter Visit Diagnoses Not on filedocumented in this encounter Care Teams Slurry Mixer Relationship Specialty Start Date End Date Zack Lainez MD PCP - General 03/25/01 10/08/16 Marlo Steward MD [address] [place] [address] PCP - General 04/28/23 documented as of this encounter
--- OUTSIDE RECORDS SUMMARY | 2023-10-22 21:03 | XMS_ITS | Encounter Summary ---
Author Organization [facility] Address [address] [place] [address] Care Team Providers Care Industrial Maintenance Repairer Helper Name Role Phone Marlo Steward Flakita Primary Care Provider [phone] Cam Davis MD Unavailable [phone] Dahlia Maya PA-C Unavailable [phone] Reason for Referral * Consultation (Routine) - Open Specialty Diagnoses / Procedures Referred By Dayanna hicks Referred To Contact Neurology Diagnoses MS (multiple sclerosis) ([facility]) Dahlia Maya PA-C [address] [facility] [address] [place] [address] Referral ID Status Reason Start Date Expiration Date V isits Requested Visits Authorized [id number] Open Specialty Services Required 07/29/2023 1 1 Question Answer Reason for Referral? New diagnosis multiple sclerosis, appropriate DMT options with her various other conditions and concerns, deciphering what symptoms are secondary to MS and what are secondary to spine disease, etc. Comments Please send to the [facility] in [place] to see either Dr. Sarahi Hall or Dr. Tawanda Benítez. I would appreciate your help with this patient and her new diagnosis of MS with brain lesions and oligoclonal banding on recent spinal tap. She is complex with significant cervical and lumbar spine disease. I would appreciate input on appropriate DMT options with her various other conditions and concerns, deciphering what symptoms are secondary to MS and what are secondary to spine disease, etc. Reason for Visit * Reason Comments Follow up Encounter Details Date Type Department Care Team (Song st Contact Info) Description 07/29/2023 1:00 PM CDT Office Visit [facility] - [address] [place] [address] [phone] Dahlia Maya PA-C [address] [place] [id number] MS (multiple sclerosis) ([facility]) (Primary Dx) Social History Tobacco Use Types Packs/Day Years Used Date Smoking Tobacco: Every Day Cigarettes 0.5 35 Smokeless Tobacco: Never Tobacco Cessation:Ready to Q uit: No; Counseling Given: Yes PHQ-2 Answer Date Recorded PHQ2 Total 6 02/26/2023 Sex and Gender Information Value Date Recorded Sex Assigned at Not on file Gender Identity Not on file Sexual Orientation Not on file documented as of this encounter Last Filed Vital Signs Vital Sign Reading Time Taken Comments Blood Pressure - - Pulse - - Temperature - - Respiratory Rate 14 07/29/2023 12:45 PM CDT Oxygen Saturation - - Inhaled Oxygen Concentration - - Weight 72.6 kg (160 lb) 07/29/2023 12:45 PM CDT Height 166.4 cm (5' 5.5) 07/29/2023 12:45 PM CD T Body Mass Index 26.22 07/29/2023 12:45 PM CDT documented in this encounter Patient Instructions * Patient Instructions* Dahlia Maya PA-C - 07/29/2023 1:00 PM CDT I want you to see an MS specialist. I have placed a referral to the Multiple Sclerosis Clinic at the [facility] location. I am hoping they will help with: Discussing appropriate disease modifying therapies for you, your side effect concerns, and your additional health conditions/concerns. 2. What of your symptoms are due to the multiple sclerosis, and what are due to other causes. documented in this encounter Progress Notes * Dahlia Maya PA-C - 07/29/2023 1:00 PM CDT CHIEF COMPLAINT: f/u MS HISTORY OF PRESENTING ILLNESS: Ms. Hatch is a very pleasant 52-year-old female presenting today for follow-up regarding multiple sclerosis. Current symptoms: The patient does have significant spine disease, so she has been getting injections for these, and has felt that they have been helpful. She continues to have fatigue, feeling like her gait is difficult. She cannot walk far distances without being tired. She has spine pain, pain in her arms, pain in her legs. She has trouble sleeping at nighttime. I had wanted to start the patient on Aubagio, but she states that after reading the side effects and looking at support groups, she is not interested in starting Aubagio at this time, and is a scaredto start any immunosuppression, immune modulator medication. She does state that she has heard goodthings about case symptoms, and wonders about that medication. Current symptoms include: She tells me today that she is struggling with the following: She has to use her cane all of the time She has leg weakness to the point where she had a fall She is very fatigued during the day She is having shaking as well as in her arms Brain fog and forgetting what she is doing Bladder sometimes feels like she is not completely emptying her having some urgency Her walking speed is very slow Balance is not good She feels like she is completely couch bound Previous imaging: BRAIN MRI O 06/02/2023: 1. Multiple areas of scattered punctate white matter T2 hyperintensity maintain a distribution configuration consistent with patient's given history of multiple sclerosis. There are no new areas of abnormal parenchymal signal or areas of abnormal parenchymal enhancement to suggest acute or ongoing demyelination or blood brain barrier breakdown at this time. 2. No intracranial mass, intracranial hemorrhage or acute or subacute infarction. 3. Mild right frontal sinus, bilateral ethmoid air cell and bilateral maxillary sinus mucosal thickening with additional findings in the left maxillary sinus that could represent acute sinusitis in the appropriate clinical setting. 4. Regressive remodeling changes in the right mandibular condyle are consistent with right temporomandibular joint internal derangement. Nagi Sutton M.D. CERVICAL SPINE MRI WWO 06/02/2023: Multilevel degenerative cervical and upper thoracic spondylosis with the following notable findings: 1. No abnormal cord signal or cord enhancement to suggest acute or ongoing demyelination at this time. 2. No disc herniation, significant central stenosis or acute fracture. 3. Notable chronic severe right C6-7, moderately severe right C5-6 and moderately severe right C4-5foraminal stenosis. Nagi Sutton M.D. THORACIC SPINE MRI 04/27/2023: Normal thoracic spinal cord. Small disc bulges and disc protrusions at several levels without spinal canal narrowing or spinal cord compression. No interval change. SIGNED BY: Tio Ritter M.D. Lumbar puncture on 04/28/2023: Total protein CSF: Within normal limits 24.6 CSF oligoclonal bands number: Elevated at 6 Immunoglobulin serum IgG: Low at 590 Oligoclonal IgG CSF: Within normal limits 1.5 Albumin serum: Within normal limits 4257 Oligoclonal albumin index: Within normal is 4.5 Oligoclonal IgG index: Within normal limits 0.57 CSF IgG/albumin ratio: Low at 0.08 Oligoclonal banding: Positive IgG synthesis rate: Within normal limits less than 0 Glucose CSF: Within normal limits at 67 Color: Colorless Clarity: Clear Total nucleated cells: Within normal limits at 2 RBC count: Within normal limits at 1 BRAIN MRI WWO 01/18/2023: 1. No acute intracranial abnormality. No significant change compared to the MRI dated 01/23/2015. 2. Stable small FLAIR hyperintensities scattered in the supratentorial white matter are nonspecific, though most typical for sequelae of migraine headaches or mild chronic microvascular ischemic changes. Dictated by Michael Myers MD @ 01/18/2023 6:45:00 PM CERVICAL SPINE MRI 01/18/2023: 1. Normal alignment. No fractures. 2. Normal cord signal. No intradural mass or lesion. 3. At C4-5, mild narrowing of the bilateral neural foramina 4. At C5-6, moderate right and mild left neural foraminal narrowing. 5. At C6-7, moderate to severe right neural foraminal narrowing. Potential impingement of the rightC7 nerve root. Dictated by Giovanny Medel MD @ 01/18/2023 1:32:01 PM EMG BLE 06/16/2021: This is a normal study of the lower extremities. Specifically, there are no findings to suggest a generalized neuropathic or myopathic process. Provider: Geovany Nguyen MD Results of her spinal tap included 09/16/2021: Increased lymphocytes at 95% Reduced monocytes and 5% Reduced IgG at 584.79 Increased IgG index at 0.74 Equal vocal oligoclonal bands ELP interpretation, CSF/serum read that the IgG index increased with normal IgG synthesis rate. Abnormal study, nondiagnostic. Equal focal banding on CSF isoelectric focusing electrophoresis may warrant consideration of repeat study in 6 to 9 months, especially if other quantitative parameters are abnormal in the study or if the clinical setting is suspicious for MS. This was interpreted by Dr. Sugey More. PHYSICAL EXAMINATION: Patient appears uncomfortable, and moves many times in her chair. She is pleasant to talk to. She is able to answer my questions clearly and carry on a good conversation. She does get slightly emotional talking about her symptoms, how tired she is, how much pain she is in, and her diagnosis. ASSESSMENT/PLAN: Ms. Hatch is a 52-year-old female with complex past medical history, presenting for new diagnosis of multiple sclerosis, here today to discuss starting a disease modifying therapy.We discussed starting Aubagio at her last appointment, but after some research she decided she did not want to start the medication for various reasons, including side effect profile, changes to the liver. She has significant spine disease, and has been seeing a title specialist and getting injections, which has been helpful in regards to those symptoms. Otherwise, she remains unchanged from her previous visits. The patient and myself spent most of her time today discussing her history, reviewing her images, reviewing disease modifying therapies for multiple sclerosis, and after a long discussion decided it would be beneficial for the patient to see a multiple sclerosis specialist. My goal with her and seen an MS specialist would be to understand a good medication for her to be on in regards to all of her concerns, side effect profile, etc. I also would appreciate an opinion from an MS specialist as towhat symptoms the patient is experiencing is secondary to her multiple sclerosis, and what symptomsare separate. We decided to send referral to the [facility] multiple sclerosis clinic.I would be happy to see this patient for follow-up still, and would appreciate help and advice froman MS specialist with initial plan. I have discussed the above details with Ms. Hatch at great length and she expressed understanding. she seemed satisfied with this conversation, and had no further queries as of now. she has our contact information and has been advised to stay in touch with us regarding any other issues that may arise. Thank you for allowing me to participate in Ms. Hatch's care. Dahlia Maya PA-C [facility] Neurology 4:45 PM 08/09/2023 I spent 70 minutes on the date of the encounter with this patient consisting of activities before, during and after the encounter including time spent: Preparing to see the patient including review of the chart, tests, and/or outside records. Reviewing and verifying information regarding the chief complaint and history already recorded by ancillary staff and/or the patient. Obtaining history and performing medically appropriate evaluation. Counseling the patient regarding the diagnosis, additional diagnostic considerations, possible diagnostic testing, and any potential options for therapy, including conservative/lifestyle measures and pharmacotherapy including risks/benefits, side effects and adverse effects. I also counseled the patient on how to contact me with any questions or concerns, new or worsening symptoms. Ordering medications, tests, and/or procedures, and documenting the chart. Please excuse any typographical errors, as this note was generated using a Voice Recognition Software. documented in this encounter Plan of Treatment Scheduled Referrals Name Type Priority Associated Diagnoses Orde r Schedule REFERRAL NEUROLOGY Referral Routine MS (multiple sclerosis) (HCC) Ordered: 07/29/2023 documented as of this encounter Visit Diagnoses Diagnosis MS (multiple sclerosis) (HCC)- Primary Multiple sclerosis documented in this encounter Care Teams Industrial Maintenance Repairer Helper Relationship Specialty Start Date End Date Marlo Steward [address] [place] [address] PCP - General Family Medicine 02/18/23 Cam Davis MD [address] [facility] [address] [place] [address] Neurology 02/18/23 Dahlia Maya PA-C [address] [facility] [address] [place] [address] Neurology 03/01/23 documented as of this encounter
--- OUTSIDE RECORDS SUMMARY | 2023-10-22 21:03 | XMS_ITS | Referral Summary ---
Author Organization [facility] Address [address] [place] [address] Care Team Providers Care Box Order Person Name Role Phone Marlo Steward MD Primary Care Provider [phone] Allergies Active Allergy Reactions Criticality Noted Date Comments Prochlorperazine 10/27/2001 oral swelling Medications Medication Sig Dispensed Refills Start Date End Date Status amphetamine-dextroamphe tamine (ADDERALL) 20 MG tablet Take 20 mg by mouth 12/26/2017 Active DULoxetine (CYMBALTA) 30 MG capsule 60 + 30 mg = 90 mg per day 06/24/2017 Active DULoxetine (CYMBALTA) 60 MG capsule 06/26/2017 Active Immunizations Name Administration Dates Next Due Tetanus 02/11/2000 Social History Tobacco Use Types Packs/Day Years Used Date Smoking Tobacco: Every Day Cigarettes 0.5 14 Smokeless Tobacco: Never Tobacco Cessation:Ready to Q uit: Yes; Counseling Given: Yes Alcohol Use Standard Drinks/Week Comments Yes 0 (1 standard drink = 0.6 oz pur e alcohol) occasional Adolescent Education Answer Date Record ed Getting School Help Needed Not on file 11/08 Sex and Gender Information Value Date Recorded Sex Assigned at Not on file Gender Identity Not on file Sexual Orientation Not on file Last Filed Vital Signs Vital Sign Reading Time Taken Comments Blood Pressure 120/86 04/28/2023 8:22 AM CDT Pulse 78 04/28/2023 8:22 AM CDT Temperature 37 ??C (98.6 ??F) 01/24/2018 9:57 AM STREETS AND BUILDINGS DECORATOR Respiratory Rate 14 01/24/2018 9:57 AM STREETS AND BUILDINGS DECORATOR Oxygen Saturation 100% 04/28/2023 8:22 AM CDT Inhaled Oxygen Concentration - - Weight 71.7 kg (158 lb) 01/24/2018 9:56 AM STREETS AND BUILDINGS DECORATOR Height 167.6 cm (5' 6) 01/24/2018 9:56 AM STREETS AND BUILDINGS DECORATOR Body Mass Index 25.5 01/24/2018 9:56 AM STREETS AND BUILDINGS DECORATOR Plan of Treatment Not on file Procedures Procedure Name Priority Date/Time Associated Diagnosis Comments BASIC METABOLIC PANEL STAT 12/28/2006 12:10 AM STREETS AND BUILDINGS DECORATOR from Last 3 Months or Most Recently Relevant to Health Maintenance Results * (ABNORMAL) Basic metabolic panel (12/28/2006 12:10 AM STREETS AND BUILDINGS DECORATOR) Sodium 140 133 - 144 mmol/L M[facility]YS Potassium 3.3(L) 3.4 - 5.3 mmol/L MISYS Chloride 105 94 - 109 mmol/L MISYS Carbon Dioxide 26 20 - 32 mmol/L MISYS Glucose 93 60 - 99 mg/dL [facility] Urea Nitrogen 8 5 - 24 mg/dL M[facility]YS Creatinine 0.80 0.60 - 1.30 mg/dL M[facility]YS GFR Estimate 87 >60 mL/min/1.7 m2 MISYS GFR Estimate If Black >90 >60 mL/min/1.7 m2 MISYS Calcium 8.9 8.5 - 10.4 mg/dL MISYS Anion Gap 9 6 - 17 mmol/L MISYS 12/28/2006 12:1 0 AM STREETS AND BUILDINGS DECORATOR 12/28/2006 12:07 AM STREETS AND BUILDINGS DECORATOR Jorge Luis White MD LAB - BLOOD ORDER ALMA MISYS from Last 3 Months or Most Recently Relevant to Health Maintenance Care Teams Box Order Person Relationship Specialty Start Date End Date Marlo Steward MD [address] [place] [address] PCP - General 04/28/23
--- OUTSIDE RECORDS SUMMARY | 2023-10-22 21:03 | XMS_ITS | Clinical Summary ---
Author Organization [facility] Address [address] [place] [address] Care Team Providers Care Carpenters Helper Name Role Phone Marlo Steward Flakita Primary Care Provider [phone] Cam Davis MD Unavailable [phone] Dahlia Maya PA-C Unavailable [phone] Allergies Active Allergy Reactions Criticality Noted Date Comments Melatonin Anxiety Low 02/26/2023 She says it would keep her awake and gets fidgety Prochlorperazine Swelling, lips/tongue High 10/28/19 02 oral swelling Medications Medication Sig Dispensed Refills Start Date End Date Status Cholecalciferol, Vitamin D3, 125 mcg (5,000 unit) oral capsule TAKE ONE CAPSULE BY MOUTH ONE TIME DAILY WITH FOOD* 02/10/2023 Active clonazePAM (KLONOPIN) 2 mg oral tablet 2.5 mg 09/19/2021 Active dextroamphetamine-am phetamine (ADDERALL) 20 mg oral tablet Take 1 tablet (20 mg) by mouth three times a day as needed. Active DULoxetine (CYMBALTA) 30 mg oral delayed release capsule Take with a 60 mg pill for 90 mg a day total 03/05/2022 Active DULoxetine (CYMBALTA) 60 mg oral delayed release capsule TAKE 1 CAPSULE BY MOUTH DAILY ALONG WITH 30 MG CAPSULE FOR 90 MG DAILY TOTAL Active pantoprazole (PROTONIX) 40 mg oral delayed release tablet Take 1 tablet (40 mg) by mouth Daily. 11/09/2019 Active butalbital-acetamino phen-caffeine 50-325-40 mg (FIORICET/ESGIC) 50-325-40 mg oral tabletIndications:H/ O headache following lumbar puncture TAKE 1 TABLET BY MOUTH EVERY 4 HOURS NEEDED FOR HEADACHE 10 tablet 05/10/2023 Active meloxicam (MOBIC) 15 mg oral tablet Take 1 tablet (15 mg) by mouth Daily. 06/01/2023 Active tiZANidine (ZANAFLEX) 4 mg oral tablet Take 1 tablet (4 mg) by mouth every 8 (eight) hours as needed. 04/29/2023 Active teriflunomide (AUBAGIO) 14 mg oral TabIndications:MS (multiple sclerosis) (HCC) Take 1 tablet (14 mg) by mouth once daily. 90 tablet 1 07/02/2023 Active Active Problems No known active problems Encounters Date Type Department Care Team Description 09/01/2023 Order-Scan [facility] Neurology [address] [place] [address] Cam Davis MD 07/29/2023 1:00 PM CDT Office Visit [address] [place] [address] Dahlia Maya PA-C MS (multiple sclerosis) (HCC) (Primary Dx) from Last 3 Months Social History Tobacco Use Types Packs/Day Years [...] Mass Index 26.22 07/29/2023 12:45 PM CDT Plan of Treatment Health Maintenance Due Date Last Done Comments Colonoscopy 1972 Diabetes Screening 1972 Lipid Screening 1972 Pap Smear 1972 Anxiety Screening (JASIEL-2) 1973 Pneumococcal <65 (1 of 2 - PCV) 1978 Adult Tetanus Booster 06/03/2020 06/03/2010 , 02/11/2000, 06/02/1989 Yearly Review of HCD 2022 Zoster Vaccine (1 of 2) 2022 Depression Follow-Up (PHQ-9) 04/27/2023 02/26/2023 COVID-19 Vaccine ( - 2022- season) 2023 Influenza Vaccine (#1) 2023 02/25/2018, 2014 Mammogram Screening 08/27/2024 08/27/2022, Hepatitis C Screening Completed 06/22/2023 Procedures Procedure Name Priority Date/Time Associated Diagnosis Comments SCANNED PROCEDURE Routine 08/31/2023 5:05 PM CDT from Last 3 Months Results * SCANNED PROCEDURE (08/31/2023 5:05 PM CDT) Cam Davis MD PROCEDURE ORDERABLE from Last 3 Months Care Teams Carpenters Helper Relationship Specialty Start Date End Date Marlo Steward [address] [place] [address] PCP - General Family Medicine 02/18/23 Cam Davis MD [address] [facility] [address] [place] [address] Neurology 02/18/23 Dahlia Maya PA-C [address] [place] [address] [place] [id number] Neurology 03/01/23
--- OUTSIDE RECORDS SUMMARY | 2023-10-22 21:03 | XMS_ITS | Clinical Summary ---
Author Organization [place] Address [address] [place] [address] Care Team Providers Care Neurologist Name Role Phone Marlo Steward MD Primary Care Provider [phone] Allergies Active Allergy Reactions Criticality Noted Date [...] Name Administration Dates Next Due Tetanus 02/11/2000 Family History Medical History Relation Comments Alcohol/Drug Father alcohol Eye Disorder Mother glaucomo Gynecology Mother endometriosis Lipids Mother Osteoporosis Mother Alcohol/Drug Paternal Grandfather alcohol Alzheimer Disease Paternal Grandmother Arthritis Paternal Grandmother ostoearthri tis Blood Disease Paternal Grandmother clotting di sorder Cerebrovascular Disease Paternal Grandmother Heart Disease Paternal Grandmother heart attac k Hypertension Paternal Grandmother Osteoporosis Paternal Grandmother Respiratory Paternal Grandmother Gynecology Sister endometriosis an d 1 with cervicle dysplasia Respiratory Sister asthma Relation Status Comments Father Mother Paternal Grandfather Paternal Grandmother Sister Social History Tobacco Use Types Packs/Day Years [...] 37 ??C (98.6 ??F) 01/24/2018 9:57 AM BUSINESS DEVELOPMENT SALES EXECUTIVE Respiratory Rate 14 01/24/2018 9:57 AM BUSINESS DEVELOPMENT SALES EXECUTIVE Oxygen Saturation 100% 04/28/2023 8:22 AM CDT Inhaled Oxygen Concentration - - Weight 71.7 kg (158 lb) 01/24/2018 9:56 AM BUSINESS DEVELOPMENT SALES EXECUTIVE Height 167.6 cm (5' 6) 01/24/2018 9:56 AM BUSINESS DEVELOPMENT SALES EXECUTIVE Body Mass Index 25.5 01/24/2018 9:56 AM BUSINESS DEVELOPMENT SALES EXECUTIVE Plan of Treatment Health Maintenance Due Date Last Done Comments ADVANCE CARE PLANNING 1972 ANNUAL REVIEW OF HM ORDERS 1972 CT COLONOGRAPHY 1972 FIT 1972 FLEX SIG 1972 YEARLY PREVENTIVE VISIT 1972 sDNA (Cologuard) 1972 Pneumococcal Vaccine: Pediatrics (0 to 5 Years) and At-Risk Patients (6 to 64 Years) (1 of 2 - PCV) 1978 COLONOSCOPY 1982 COLORECTAL CANCER SCREENING 1982 HIV SCREENING 09/12/1987 HEPATITIS C SCREENING 1990 HEPATITIS B IMMUNIZATION (1 of 3 - 19+ 3-dose series) 09/12/1991 PAP 1993 GLUCOSE 12/28/2009 12/28/2006 LIPID 2012 DTAP/TDAP/TD IMMUNIZATION (6 - Td or Tdap) 06/03/2020 06/03/2010, 02/11/2000, 02/11/2000, Additional history exists LUNG CANCER SCREENING 2022 ZOSTER IMMUNIZATION (1 of 2) 2022 PHQ-2 (once per calendar year) 2023 COVID-19 Vaccine (1 - 2022-24 season) 2023 INFLUENZA VACCINE (#1) 2023 02/25/2018, 2014 MAMMO SCREENING 08/27/2024 08/27/2022 HPV IMMUNIZATION Aged Out No longer e ligible based on patient's age to complete this topic MENINGITIS IMMUNIZATION Aged Out No l onger eligible based on patient's age to complete this topic RSV MONOCLONAL ANTIBODY Aged Out No l onger eligible based on patient's age to complete this topic Procedures Procedure Name Priority Date/Time Associated Diagnosis Comments BASIC METABOLIC PANEL STAT 12/28/2006 12:10 AM BUSINESS DEVELOPMENT SALES EXECUTIVE from Last 3 Months or Most Recently Relevant to Health Maintenance Results * (ABNORMAL) Basic metabolic panel (12/28/2006 12:10 AM BUSINESS DEVELOPMENT SALES EXECUTIVE) Sodium 140 133 - 144 mmol/L MISYS [...] 17 mmol/L MISYS 12/28/2006 12:1 0 AM BUSINESS DEVELOPMENT SALES EXECUTIVE 12/28/2006 12:07 AM BUSINESS DEVELOPMENT SALES EXECUTIVE Jorge Luis White MD LAB - BLOOD ORDER ALMA MISYS from Last 3 Months or Most Recently Relevant to Health Maintenance Care Teams Neurologist Relationship Specialty Start Date End Date Marlo Steward MD [address] [place] [address] PCP - General 04/28/23
--- OUTSIDE RECORDS SUMMARY | 2023-10-22 21:03 | XMS_ITS | Encounter Summary ---
Author Organization [facility] Address [address] [place] [address] Care Team Providers Care Senior Application Security Consultant Name Role Phone Marlo Steward Primary Care Provider Cam Davis MD Unavailable [phone] Dahlia Maya PA-C Unavailable [phone] Encounter Details Date Type Department Care Team (Late st Contact Info) Description 09/01/2023 Order-Scan [facility] [address] [place] [phone] Cam Davis MD [address] [place] [address] [place] [id number] Social History Tobacco Use Types Packs/Day Years Used Date Smoking Tobacco: Every Day Cigarettes 0.5 35 Smokeless Tobacco: Never PHQ-2 Answer Date Recorded PHQ2 Total 6 02/26/2023 Sex and Gender Information Value Date Recorded Sex Assigned at Not on file Gender Identity Not on file Sexual Orientation Not on file documented as of this encounter Plan of Treatment Not on file documented as of this encounter Procedures Procedure Name Priority Date/Time Associated Diagnosis Comments SCANNED PROCEDURE Routine 08/31/2023 5:05 PM CDT documented in this encounter Results * SCANNED PROCEDURE (08/31/2023 5:05 PM CDT) Cam Davis MD PROCEDURE ORDERABLE documented in this encounter Visit Diagnoses Not on filedocumented in this encounter Care Teams Senior Application Security Consultant Relationship Specialty Start Date End Date Marlo Steward [address] [place] [address] PCP - General Family Medicine 02/18/23 Cam Davis MD [address] [address] Neurology 02/18/23 Dahlia Maya PA-C [address] [address] Neurology 03/01/23 documented as of this encounter
--- OUTSIDE RECORDS SUMMARY | 2023-10-22 21:03 | XMS_ITS | Encounter Summary ---
Author Organization [place] Address [facility] [facility] [place] [address] Care Team Providers Care Ward Attendant Name Role Phone Marlo Steward MD Primary Care Provider [phone] Encounter Details Date Type Department Care Team (Late st Contact Info) Description 02/21/2018 [facility] Medical Advice [facility] Sleep [facility] [address] [facility] [address] [place] [phone] Shlomo Marquez MD [address] [facility] [address] [place], [place] [id number] Social History Tobacco Use Types Packs/Day Years [...] on filedocumented in this encounter Care Teams Ward Attendant Relationship Specialty Start Date End Date Marlo Steward MD [address] [place] [address] PCP - General 04/28/23 documented as of this encounter
--- OUTSIDE RECORDS SUMMARY | 2023-10-22 21:03 | XMS_ITS | Referral Summary ---
Author Organization [facility] Address [address] [place] [address] Care Team Providers Care Vice President Global Advertising Sales Name Role Phone Marlo Steward Primary Care Provider [phone] Cam Davis MD Unavailable [phone] Dahlia Maya PA-C Unavailable [phone] Encounters Date Type Department Care Team Description 09/01/2023 Order-Scan [facility] Neurology [address] [place] [phone] Cam Davis MD 07/29/2023 1:00 PM CDT Office Visit [address] [place] [phone] Dahlia Maya PA-C MS (multiple sclerosis) (HCC) (Primary Dx) from Last 3 Months Allergies Active Allergy Reactions Criticality Noted Date [...] Active Active Problems No known active problems Social History Tobacco Use Types Packs/Day Years [...] 07/29/2023 12:45 PM CDT Plan of Treatment Not on file Procedures Procedure Name Priority Date/Time Associated Diagnosis Comments SCANNED PROCEDURE Routine 08/31/2023 5:05 PM CDT from Last 3 Months Results * SCANNED PROCEDURE (08/31/2023 5:05 PM CDT) Cam Davis MD PROCEDURE ORDERABLE from Last 3 Months Care Teams Vice President Global Advertising Sales Relationship Specialty Start Date End Date Marlo Steward [address] [place] [address] PCP - General Family Medicine 02/18/23 Cam Davis MD [address] [facility] [address] [place] [address] Neurology 02/18/23 Dahlia aMya PA-C [address] [facility] [address] [place] [address] Neurology 03/01/23
--- OUTSIDE RECORDS SUMMARY | 2023-10-22 21:03 | XMS_ITS | Clinical Summary ---
Author Organization [employer] [facility] Address [place], [place] [address] Care Team Providers Care Ward Nurse Name Role Phone Marlo Steward MD Primary Care Provider [phone] Tawanda Duvall PsyD, Unavailable Allergies Active Allergy Reactions Criticality Noted Date Comments Prochlorperazine Edema 10/27/2001 oral swelling Medications Medication Sig Dispensed Refills Start Date End Date Status Armodafinil (NUVIGIL) 250 mg tablet 11/29/2020 Active clonazePAM (KLONOPIN) 2 mg tablet 2.5 mg 09/19/2021 Active dextroamphetamine-amp hetamine (AdderalL) 20 mg tabletIndications:ADH D, predominantly inattentive type Take 1 Tablet (20 mg) by mouth three times daily. 0 03/05/2022 Active cholecalciferol, Vitamin D3, 5,000 unit tab tabletIndications:Vit salvador D deficiency Take 1 Tablet (5,000 units) by mouth once daily. Take with food to enhance absorption. 90 Tablet 02/09/2023 Active medication order composerIndications:F ibromyalgia Solaray Vit C - 1000mg Daily Solaray zinc (50 mg), copper (2 mg), and iodine 53 mcg [place] Quercetin / Bromelain (200 mg vit c, 1000 mg quercitin, 150 mg bromelain) [place] Vit D3 w/ K2 - 1,000 IU Daily 02/24/2023 Active tiZANidine (ZANAFLEX) 4 mg tabletIndications:For aminal stenosis of cervical region Take 1 Tablet (4 mg) by mouth every 8 hours if needed for Muscle Spasm. 36 Tablet 2 04/29/2023 Active DULoxetine (CYMBALTA) 60 mg Delayed-release capsuleIndications:Lili fuentes depression in remission (HC) Take with 30 mg pill for 90 mg daily total 90 Capsule 3 05/11/2023 Active fluticasone (50 mcg per actuation) nasal solution (FLONASE)Indications: Sinusitis, unspecified chronicity, unspecified location Inhale 1 [place]ell to both nostrils once daily. 1 g 5 05/11/2023 Active pantoprazole (PROTONIX) 40 mg delayed-release tabletIndications:Gas tric reflux Take 1 Tablet (40 mg) by mouth once daily. 90 Tablet 3 05/11/2023 Active triamcinolone (ARISTOCORT; KENALOG) 0.1 % creamIndications:Derm atitis Apply topically to affected area(s) two times daily. Can use for up to 2 weeks straight in any 1 area 80 g 2 05/11/2023 Active gabapentin (NEURONTIN) 100 mg capsule Take 100 mg by mouth three times daily. 05/18/2023 Active meloxicam 15 mg tablet Take 15 mg by mouth once daily. 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 6 Depression 12/12/2012 09/12/2013 ADD (attention deficit disorder) 12/12/2012 06/24/2017 Encounters Date Type Department Care Team Description 09/14/2023 Orders Only [facility] Scanner 1 scan: (1-Ord) [facility] ([facility]), BILAT CERVICAL MEDIAL BRANCH BLOCKST AT C2-C3 AND C3-C4 FACET LEVELS, 09/14/2023 08/31/2023 Orders Only [facility] Scanner 1 scan: (1-Ord) [facility] ([facility]), LUMBAR RADIOFREQUENCY AT RT L4-5 AND L5-S1 FACET JOINT LEVELS, 08/31/2023 08/30/2023 9:40 AM CDT Ancillary Procedure [facility] [address] [place] [address] 08/30/2023 Travel 08/17/2023 Orders Only [facility] Scanner 1 scan: (1-Ord) [facility], LUMBAR RADIOFREQUENCY, 08/17/2023 07/27/2023 Refill [facility] [address] [place] [address] Marlo Steward MD Refill Request (Duloxetine) from Last 3 Months Immunizations Name Administration Dates Next Due DTaP 07/05/1973,1972,1972 Influenza, IIV4 02/25/2018,12/20/2014 MMR 07/04/1975 Polio Virus, Unspecified 07/05/1973,1972 Td (Age >=7 Years) 06/02/1989 Tdap 06/03/2010 Tetanus Toxoid 02/11/2000 Family History Medical History Relation Name Comments Depression Daughter Lindsey Cruz Good Health Daughter Lindsey Cruz Endometriosi s Depression Father Scotty (Conner) Koktavy Good Health Father Scotty (Conner) [place] Cance r bladder, kidney, throughout body Coronary artery disease Maternal Grandmother Cileo Devineersen Heart failure Maternal Grandmother Cielo Devineersen Stroke Maternal Grandmother Cielo Condeophersen Depression Mother Teresa Mcmillan Good Health Mother Teresa Mcmillan Depression, kid nazario stones, bladder surgery, bowl issues Osteoporosis Mother Teresa Mcmillan Lupus Paternal Aunt 1 Sarita Krough Osteoarthritis Paternal Aunt 1 Sarita Krough Osteoporosis Paternal Aunt 1 Sarita Krough Rheum arthritis Paternal Aunt 1 Sarita Krough Osteoporosis Paternal Aunt 2 Segundo Reuvers Rheum arthritis Paternal Aunt 2 Segundo Reuvers Rheum arthritis Paternal Grandfather Scotty [place] Stroke Paternal Grandfather Scotty [place] Anxiety disorder Paternal Grandmother Tyler [place] Cancer-breast Paternal Grandmother Tyler [place] Amaloidosis Coronary artery disease Paternal Grandmother Tyler [place] Depression Paternal Grandmother Tyler [place] Heart failure Paternal Grandmother Tyler [place] Osteoarthritis Paternal Grandmother Tyler [place] Osteoporosis Paternal Grandmother Tyler [place] Rheum arthritis Paternal Grandmother Tyler [place] Stroke Paternal Grandmother Tyler [place] Depression Sister 1 Adore [place] Good Health Sister 1 Adore [place] Thyroid Thyroid Disease Sister 1 Adore [place] Good Health Sister 2 Kasey Grisim Restless leg syndrome Relation Name Status Comments Daughter Lindsey Cruz Father Scotty (Conner) [place] Alive Maternal Grandmother Cielo Devineersen Mother Teresa Mcmillan Alive Paternal Aunt 1 Sarita Krough Paternal Aunt 2 Segundo Reuvers Paternal Grandfather Scotty [place] Paternal Grandmother Tyler [place] Sister 1 Adore [place] Alive Sister 2 Kasey Grisim Alive Social History Tobacco Use Types Packs/Day Years Used Date Smoking Tobacco: Every Day Cigarettes 0.5 36.7 Started: 1987 Smokeless Tobacco: Never Tobacco Cessation:Ready to Q uit: Not Asked; Counseling Given: Not Answered Alcohol Use Standard Drinks/Week Comments Yes 10 (1 standard drink = 0.6 oz pu re alcohol) a couple a day PHQ-2 Answer Date Recorded PHQ-2 TOTAL SCORE 6 05/11/2023 Social Connections Answer Date Recorded Frequency of Communication with Friends and Fami ly 0 11/15/2022 Financial Resource Strain Answer Date R ecorded Difficulty of Paying Living Expenses Not on file 11/15/2022 Difficulty of Paying Living Expenses 3 11/15/2022 Food Insecurity Answer Date Recorded Worried About Running Out of Food in the Last Ye ar 2 11/15/2022 Transportation Needs Answer Date Record ed Lack of Transportation (Medical) 1 11/15/2022 Housing Stability Answer Date Recorded Unable to Pay for Housing in the Last Year 1 11/15/2022 Sex and Gender Information Value Date Recorded Sex Assigned at Not on file Gender Identity Not on file Sexual Orientation Not on file Obstetrics History Last Filed Vital Signs Vital Sign Reading Time Taken Comments Blood Pressure 111/80 06/07/2023 4:15 PM CDT Pulse 106 06/07/2023 4:15 PM CDT Temperature 37.2 ??C (98.9 ??F) 11/28/2021 9:45 AM CD T Respiratory Rate 14 03/17/2022 11:20 AM 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 Oxygen Saturation 99% 06/07/2023 4:15 PM CDT Inhaled Oxygen Concentration - - Weight 73.5 kg (162 lb 1.6 oz) 05/11/2023 1:33 P M CDT Height 164.5 cm (5' 4.76) 05/11/2023 1:33 PM CD T Body Mass Index 27.17 05/11/2023 1:33 PM CDT Plan of Treatment Health Maintenance Due Date Last Done Comments COVID-19 vaccine series (#1) 1977 Pneumococcal series for age 6-64 (1 of 2 - PCV) 1978 Zoster (shingles) series for age 50+ (1 of 2) 09/12/1991 Tetanus booster 06/03/2020 06/03/2010, 06/02/1989 Influenza for age 50-64 10/10/2023 02/25/2018, 12/20 BMI (ht and wt on same day) for age 18+ 05/10/2024 05/11/2023, 01/13/2023, 11/28/2021, Additional history exists Depression screening for age 12+ 05/12/2024 05/13/2023, 05/11/2023, 05/11/2023, Additional history exists Mammogram for age 45-75 08/29/2024 08/30/2023, 08/27 Fecal testing sDNA-FIT ([place] guard) for age 45-75 05/21/2026 05/22/2023 Lipids for age 45-75 06/21/2028 06/22/2023, 01/27/20 17 Tdap Completed 06/03/2010 HIV for age 15-65 Completed 01/22/2015 Hepatitis C screening for ag e 18-79 Completed 06/22/2023 Procedures Procedure Name Priority Date/Time Associated Diagnosis Comments SCAN-OPERATIVE/PRO CEDURE REPORT 09/14/2023 12:00 AM CDT SCAN-OPERATIVE/PRO CEDURE REPORT 08/31/2023 12:00 AM CDT XR MAMMO JERAD BILAT SCREEN IMPLANT Routine 08/30/2023 9:52 AM CDT Encounter for screening mammogram for malignant neoplasm of breast SCAN-OPERATIVE/PRO CEDURE REPORT 08/17/2023 12:00 AM CDT ANTI HCV Routine 06/22/2023 12:15 PM CDT Multiple sclerosis (HC) Encounter for long-term (current) use of other medications LIPID PANEL Routine 06/22/2023 12:15 PM CDT Screening, lipid SDNA-FIT EXTERNAL (COLOGUARD) Routine 05/22/2023 10:30 AM CDT Screen for colon cancer ANTI HIV 1/2 Routine 01/22/2015 12:13 PM 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 Cervical lymphadenopathy from Last 3 Months or Most Recently Relevant to Health Maintenance Results * SCAN-OPERATIVE/PROCEDURE REPORT (09/14/2023 12:00 AM CDT) Scanner OTHER * SCAN-OPERATIVE/PROCEDURE REPORT (08/31/2023 12:00 AM CDT) Scanner OTHER * XR MAMMO JERAD BILAT SCREEN IMPLANT (08/30/2023 9:52 AM CDT) Anatomical Region Laterality Modality BREASTS, Breast Left, Breast Right Bilateral Mammography Impressions 09/01/2023 2:08 PM CDT ??There is no radiographic evidence for malignancy. ??Recommend annual mammograms. MAMMOGRAM ASSESSMENT: ??ACR 2 Benign PATIENTS: You will also receive a letter with your examination results in an easy to read format. ??If you have questions about your results, please contact your referring provider. Narrative 09/01/2023 2:08 PM CDT For Patients: As a result of the Century Cures Act, medical imaging exams and procedure reports are released immediately into your electronic medical record. You may view this report before your referring provider. If you have questions, please contact your health care provider. XR MAMMO JERAD BILAT SCREEN IMPLANT [[id number]] CLINICAL HISTORY: ??This is an asymptomatic 52 y.o. patient. INDICATION FOR EXAM: Mammogram Screening. TECHNIQUE: CC & MLO views were obtained. Implant displacement views were obtained. This study was evaluated with the assistance of Computer-Aided Detection. Breast Tomosynthesis was used in interpretation. COMPARISON FILMS: Yes 08/27/22 [facility] ?? FINDINGS: ??There are scattered areas of fibroglandular density. ??No suspicious masses or microcalcifications. ??There are breast implant(s) present.. Marlo Steward MD MAMMO * SCAN-OPERATIVE/PROCEDURE REPORT (08/17/2023 12:00 AM CDT) Scanner OTHER * ANTI HCV (06/22/2023 12:15 PM CDT) HEPATITIS C ANTIBODY Non-Reacti ve Non-React molly 06/23/2023 6:35 AM CDT [facility] Comment:Please note, per www .CDC.gov: If a patient is known to be at high risk of HCV infection, or is symptomatic, and the physician's suspicion of HCV infection is high, HCV RNA testing is often employed and is of diagnostic value, even after an initial negative anti-HCV test result. Blood BLOOD SPECIMEN / Unknown Butterfly / Unknown 06/22/2023 12:15 PM CDT 06/22/2023 12:19 PM CDT Marlo Steward MD SEND OUTS Performing Organization Address City/[facility]/ZIP Co de Phone Number [facility] [address] [place] [address], * (ABNORMAL) LIPID PANEL (06/22/2023 12:15 PM CDT) CHOLESTEROL,TOTAL 224(H) 100 - 199 mg/dL 06/22/2023 1:33 PM T [facility] Comment: Cholesterol, Total Reference Ranges Desirable <200 mg/dL Borderline 200-239 mg/dL High >=240 mg/dL TRIGLYCERIDES 57 <150 mg/dL 06/22/2023 1:33 PM T [facility] HDL CHOLESTEROL 100 >40 mg/dL 1:33 PM [facility] NON-HDL CHOLESTEROL 124 <145 mg/dl 06/22/2023 1:33 PM [facility] CHOL/HDL RATIO 2.24 <4.50 06/22/2023 1:33 PM [facility] LDL CHOLESTEROL 113 <=130 mg/dL 06/22/2023 1:33 PM [facility] VLDL CHOLESTEROL 11 <=30 mg/dL 06/22/2023 1:33 PM [facility] PROVIDER ORDERED STATUS RANDOM 06/22/2023 1:33 PM T [facility] Blood BLOOD SPECIMEN / Unknown Butterfly / Unknown 06/22/2023 12:15 PM CDT 06/22/2023 12:19 PM CDT Marlo Steward MD CHEMISTRY [facility] [address] [place] [address] * SDNA-FIT EXTERNAL (COLOGUARD) (05/22/2023 10:30 AM CDT) NONINV COLON CA DNA+OCC BLD SCRN STL-IMP Negative Negative 05/31/2023 9:34 AM CDT Immunovaccine (CLIA #:[id number]) Comment: NEGATIVE TEST RESULT. A negative Cologuard result indicates a low likelihood that a colorectal cancer (CRC) or advanced adenoma (adenomatous polyps with more advanced pre-malignant features) ??is present. The chance that a person with a negative Cologuard test has a colorectal cancer is less than 1 in 1500 (negative predictive value >99.9%) or has an ??advanced adenoma is less than ??5.3% (negative predictive value 94.7%). These data are based on a prospective cross-sectional study of 10,000 individuals at average risk for colorectal cancer who were screened with both Cologuard and colonoscopy. (Mamie Romeo et al, N Engl J Med 2014;370(14):1286- 1297) The normal value (reference range) for this assay is negative. COLOGUARD RE-SCREENING RECOMMENDATION: Periodic colorectal cancer screening is an important part of preventive healthcare for asymptomatic individuals at average risk for colorectal cancer. ??Following a negative Cologuard result, the [place] [employer] and U.S. Multi-Society Task Force screening guidelines recommend a Cologuard re-screening interval of 3 years. References: [place] [employer] Guideline for Colorectal Cancer Screening: https://www.cancer.org/cancer/rnvkx-lmshty-qocmlu/djglgjpft-mrhxfeoqe-xwndxvg/ac s-rec ommendations.html.; Jose A FAULKNER, Rajendra BUSTILLO, Sierra SanonK, Colorectal Cancer Screening: Recommendations for Physicians and Patients from the U.S. Multi-Society Task Force on Colorectal Cancer Screening , Am J Gastroenterology 2017; 112:8765-1873. TEST DESCRIPTION: Composite algorithmic analysis of stool DNA-biomarkers with hemoglobin immunoassay. ?? Quantitative values of individual biomarkers are not reportable and are not associated with individual biomarker result reference ranges. Cologuard is intended for colorectal cancer screening of adults of either sex, 45 years or older, who are at average-risk for colorectal cancer (CRC). Cologuard has been approved for use by the U.S. FDA. The performance of Cologuard was established in a cross sectional study of average-risk adults aged 50-84. Cologuard performance in patients ages 45 to 49 years was estimated by sub-group analysis of near-age groups. Colonoscopies performed for a positive result may find as the most clinically significant lesion: colorectal cancer [4.0%], advanced adenoma (including sessile serrated polyps greater than or equal to 1cm diameter) [20%] or non- advanced adenoma [31%]; or no colorectal neoplasia [45%]. These estimates are derived from a prospective cross-sectional screening study of 10,000 individuals at average risk for colorectal cancer who were screened with both Cologuard and colonoscopy. (Mamie Romeo et al, N Engl J Med 2014;370(14):2512-7579.) Cologuard may produce a false negative or false positive result (no colorectal cancer or precancerous polyp present at colonoscopy follow up). A negative Cologuard test result does not guarantee the absence of CRC or advanced adenoma (pre-cancer). The current Cologuard screening interval is every 3 years. ([place] [employer] and U.S. Multi-Society Task Force). Cologuard performance data in a 10,000 patient pivotal study using colonoscopy as the reference method can be accessed at the following location: www.[employer]ace/results. Additional description of the Cologuard test process, warnings and precautions can be found at www.cologuard.com. Stool specimen (specimen) (Rectum) 05/22/2023 10:30 AM CDT 05/25/2023 1:54 PM CDT Marlo Steward MD URINE Immunovaccine (CLIA #:[id number]) [address] [place] [address], * ANTI HIV 1/2 (01/22/2015 12:13 PM 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) HIV-1/HIV-2 ANTIBODY Non-Reacti ve Non-Reacti ve 01/22/2015 4:53 PM 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 [facility] Blood specimen (specimen) BLOOD SPECIMEN / Unknown Venipuncture / Unknown 01/22/2015 12:13 PM 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 01/22/2015 12:13 PM 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 Narrative [facility] - 01/22/2015 4:53 PM 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 HIV-1 p24 and HIV-1/HIV-2 Ab not detected Marlo Steward MD SEND OUTS [facility] [address] [place] [address], from Last 3 Months or Most Recently Relevant to Health Maintenance Advance Directives * Full Code (Latest Code Status on File) Date Activated Date Inactivated Comments 04/19/2019 12:41 PM 04/19/2019 6:48 PM Care Teams Ward Nurse Relationship Specialty Start Date End Date Marlo Steward MD [address] [place] [address] PCP - General Family Practice 03/28/15 Tawanda Duvall PsyD, LP [address] [place] [address] Psychology 05/20/22
[2023-10-22 21:38] LABS: Appearance Urine Clear (Clear); Bilirubin Urine Negative (Negative); Blood Urine Trace-intact (Negative); Color Urine Yellow (Yellow); Glucose Urine Negative (Negative); Ketones Urine Negative (Negative); Leukocyte Esterase Urine Negative (Negative); Nitrite Urine Negative (Negative); Protein Urine Negative (Negative); Specific Gravity Urine 1.015 (1.000-1.030); Urobilinogen Urine 0.2 (0.2-1.0); pH Urine 8.5 (5.0-8.5)
[2023-10-22] MEDS: HYDROmorphone 0.5 mg/0.5 ml inj IVP (21:41)
[2023-10-22] MEDS: 0.9 % SODIUM CHLORIDE 1000 ml 1,000 ML IV (21:41)
[2023-10-22] MEDS: KETOROLAC 15 MG/ML inj IVP (21:41)
[2023-10-22 21:48] LABS: Amphetamine Screen Urine POSITIVE (Negative); Bacteria Urine Few; Barbiturate Screen Urine Negative (Negative); Benzodiazepines Screen Urine Negative (Negative); Cannabinoid Screen Urine Negative (Negative); Cocaine Screen Urine Negative (Negative); Methadone Screen Urine Negative (Negative); Methamphetamines Screen Urine Negative (Negative); Opiate Screen Urine POSITIVE (Negative); Oxycodone Screen Urine Negative (Negative); Phencyclidine Screen Urine Negative (Negative); RBC Urine 0-2 (0-2); Squamous Epithelial Cell Urine Few (None-Few); Tricyclic Antidepressant Urine Negative (Negative); WBC Urine 0-2 (0-5)
[2023-10-22 21:51] LABS: Basophils Percent Auto 0.3 % (0.0-3.0); Eosinophils Percent Auto 0.6 % (0.0-7.0); Hematocrit 40.6 % (33.0-51.0); Hemoglobin* 13.2 gm/dL (12.0-16.0); Immature Granulocytes Pct Auto 0.1 %; Lymphocytes Percent Auto 10.7 % (20-44); Mean Corpuscular HGB Conc 33 gm/dL (32-36); Mean Corpuscular Hemoglobin 31 pg (26-34); Mean Corpuscular Volume 94 fL (80-100); Monocytes Percent Auto 4.2 % (0.0-11.0); Neutrophils Percent Auto 84.1 % (42.0-72.0); Platelet Count* 297 K/uL (140-440); RDW Coefficient of Variation % 12.6 % (11.5-15.5); Red Blood Count 4.31 m/uL (4.00-5.20); White Blood Count* 14.36 K/uL (4.50-11.00)
[2023-10-22 21:59] LABS: Slide Review Reflex No
[2023-10-22 22:04] LABS: Albumin* 4.6 g/dL (3.3-5.0); Chloride* 99 mmol/L (96-114); Sodium* 136 mmol/L (135-149)
[2023-10-22 22:07] LABS: Creatinine* 0.8 mg/dL (0.5-1.5); Est. Creatinine Clearance* 74.86; Estimated Glomerular Filt Rate 89 ml/min
[2023-10-22 22:08] LABS: Alanine Aminotransferase* 22 U/L (4-35); Alkaline Phosphatase* 72 U/L (40-150); Anion Gap 6 mEq/L (7-15); Aspartate Amino Transferase* 39 U/L (12-35); Bilirubin Direct* 0.3 mg/dL (0.0-0.5); Bilirubin Total* 0.6 mg/dL (0.1-1.5); Blood Urea Nitrogen* 14 mg/dL (7-30); Calcium* 9.3 mg/dL (8.4-10.6); Carbon Dioxide* 31 mmol/L (20-32); Glucose* 91 mg/dL (60-115)
[2023-10-22 22:10] LABS: C Reactive Protein* 6.5 mg/dL (0.5-1.0)
[2023-10-22] MEDS: HYOSCYAMINE SULFATE 0.125 MG TAB 0.25 MG SUBLINGUAL (23:24)
[2023-10-22] MEDS: METHYLPREDNISOLONE SOD SUCC 62.5 MG/ML (125) 93.75 MG IVP (23:27)
[2023-10-22] MEDS: KETAMINE 50 MG/0.5 ML 20 MG in 0.9 % SODIUM CHLORIDE 100 ml 100 ML 200.4 MG IVPB (23:34)
[2023-10-23] VITALS (8 sets, daily range): BP systolic 126; BP diastolic 88; PULSE 89–121; O2SAT 91–100
[2023-10-23] MEDS: OxyCODONE/APAP 5-325 TABLET 2 TAB PO (00:38)
[2023-10-23] MEDS: LORazepam 1 MG TABLET PO (00:38)
[2023-10-23] MEDS: HYOSCYAMINE SULFATE 0.125 MG TAB 0.25 MG SUBLINGUAL (01:50)
== END 2023-10-23 01:59 | disposition home or self-care (01) ==
PROVIDERS: Emergency Provider Family Medicine; PCP Surgery
DX: M54.50 Low back pain, unspecified (principal); M54.2 Cervicalgia; M79.604 Pain in right leg; M25.532 Pain in left wrist; M25.531 Pain in right wrist; R10.9 Unspecified abdominal pain
CPT/HCPCS: 36415; 72125; 72192; 80048; 80076; 80306; 81001; 85025; 86140; 87086; 87631; 93005; 94761; 96365; 96375; 99284; 99285; A9270; J1170; J1885; J2919; J3490; J7030

== ENCOUNTER 2025-02-01 02:19 | Observation (INO) | payer MEDICAID, SELFPAY ==
--- OUTSIDE RECORDS SUMMARY | 2025-01-30 09:00 | XMS_ITS | Encounter Summary ---
Author Organization [facility] Address [address] [place] [address] Care Team Providers Care Web Content Producer Name Role Phone Marlo Steward MD Primary Care Provider [phone] Kasey Lui MD Unavailable [phone] Reason for Visit * (Routine) - ClosedSpecialtyDiagnoses / ProceduresReferred By ContactReferred To Contact Diagnoses Low back pain, unspecified Procedures MRI SPINE LUMBAR W/O CON Dewayne Ashby [address] [facility] [address] [place] [address] Phone: tel: fax: Referral IDStatusReasonStart DateExpiration DateVisits RequestedVisits [id number] Encounter Details DateTypeDepartmentCare Team (Latest Contact Info)Diuivxlumao25/23/2025 9:00 AM CSTAncillary Procedure [facility] [address] [place] [address] Low back pain, unspecified Social History Tobacco UseTypesPacks/DayYears UsedDateSmoking Tobacco: Every DayCigarettes0.535 Smokeless Tobacco: NeverAlcohol UseStandard Drinks/WeekCommentsYes5 (1 standard drink = 0.6 oz pure alcohol)PHQ-2AnswerDate RecordedPHQ2 Tiwej678/ CommentsUnknownSex and Gender InformationValueDate RecordedSex Assigned at BirthNot on fileLegal ZchDillam14/22/2013 7:44 AM CDTGender IdentityNot on fileSexual OrientationNot on filedocumented as of this encounter Plan of Treatment Not on file documented as of this encounter Procedures Procedure NamePriorityDate/TimeAssociated DiagnosisCommentsMRI SPINE LUMBAR W/O YLIBvabwzm23/23/2025 8:54 AM DIRECTOR BUSINESS SYSTEMS Low back pain, unspecified documented in this encounter Results * MRI SPINE LUMBAR W/O CON (01/30/2025 8:54 AM DIRECTOR BUSINESS SYSTEMS)Anatomical RegionLaterality ModalitySpineMagnetic ResonanceSpecimen (Source)Anatomical Location / LateralityCollection Method / VolumeCollection TimeReceived Time01/30/2025 11:40 AM DIRECTOR BUSINESS SYSTEMS Impressions 01/30/2025 11:46 AM DIRECTOR BUSINESS SYSTEMS 1. Small left paracentral caudal disc extrusion at L1-2 results in only mild flattening of the ventral thecal sac without spinal stenosis or nerve root compression, unchanged. 2. ??Minimal disc bulging at the remaining lumbar interspaces. No central canal stenosis or cauda equina compression at any level. 3. ??Widely patent neural foramen at all levels. 4. ??Facet arthropathy is most advanced bilaterally at L5-S1. 5. ??Normal conus medullaris and cauda equina. 6. ??There has been no significant change as compared to the MRI of 03/10/2023. SIGNED BY: Joe Reid M.D. Narrative 01/30/2025 11:46 AM DIRECTOR BUSINESS SYSTEMS MRI LUMBAR SPINE 01/30/2025 8:36 AM. CLINICAL INFORMATION: Low back pain. TECHNIQUE: ??Routine-Sagittal T1, sagittal T2, sagittal STIR, axial T1, axial T2. COMPARISON: Previous [facility] MRI dated ??03/10/2023. FINDINGS: ?? PREVIOUS SURGERY: None. LUMBAR VERTEBRAE: Normal in height and signal intensity. FACET JOINTS: Advanced facet arthropathy is present at L5-S1, mild elsewhere. LUMBAR ALIGNMENT: Lumbar vertebrae are in anatomic alignment. CONUS MEDULLARIS AND CAUDA EQUINA: Normal in appearance. EXTRASPINAL ABNORMALITIES: Right renal cyst partially visualized, similar in appearance to the previous exam. SPECIFIC INTERSPACES ARE EVALUATED FOLLOWS: L1-2:: ??Circumferential disc bulging with left paracentral caudal disc protrusion results in flattening of the ventral thecal sac without spinal stenosis or nerve root compression, unchanged. L2-3: Low-grade circumferential disc bulging is present, without significant spinal stenosis or focal nerve root compression. L3-4: ??Low-grade circumferential disc bulging is present, without significant spinal stenosis or focal nerve root compression. L4-5: ??Low-grade circumferential disc bulging is present, without significant spinal stenosis or focal nerve root compression. L5-S1: ??Circumferential disc bulging is associated with a right posterior lateral annular fissure.The bulging disc results in no compression of the thecal sac or either S1 nerve root. Foramen appear adequate. Procedure Note Joe Reid MD - 01/30/2025 MRI LUMBAR SPINE 01/30/2025 8:36 AM. CLINICAL INFORMATION: Low back pain. TECHNIQUE: Routine-Sagittal T1, sagittal T2, sagittal STIR, axial T1,axial T2. COMPARISON: Previous [facility] MRI dated 03/10/2023. FINDINGS: PREVIOUS SURGERY: None. LUMBAR VERTEBRAE: Normal in height and signal intensity. FACET JOINTS: Advanced facet arthropathy is present at L5-S1, mildelsewhere. LUMBAR ALIGNMENT: Lumbar vertebrae are in anatomic alignment. CONUS MEDULLARIS AND CAUDA EQUINA: Normal in appearance. EXTRASPINAL ABNORMALITIES: Right renal cyst partially visualized, similarin appearance to the previous exam. SPECIFIC INTERSPACES ARE EVALUATED FOLLOWS: L1-2:: Circumferential disc bulging with left paracentral caudal discprotrusion results in flattening of the ventral thecal sac without spinalstenosis or nerve root compression, unchanged. L2-3: Low-grade circumferential disc bulging is present, withoutsignificant spinal stenosis or focal nerve root compression. L3-4: Low-grade circumferential disc bulging is present, withoutsignificant spinal stenosis or focal nerve root compression. L4-5: Low-grade circumferential disc bulging is present, withoutsignificant spinal stenosis or focal nerve root compression. L5-S1: Circumferential disc bulging is associated with a right posteriorlateral annular fissure. The bulging disc results in no compression of thethecal sac or either S1 nerve root. Foramen appear adequate. IMPRESSION 1. Small left paracentral caudal disc extrusion at L1-2 results in onlymild flattening of the ventral thecal sac without spinal stenosis or nerveroot compression, unchanged. 2. Minimal disc bulging at the remaining lumbar interspaces. No centralcanal stenosis or cauda equina compression at any level. 3. Widely patent neural foramen at all levels. 4. Facet arthropathy is most advanced bilaterally at L5-S1. 5. Normal conus medullaris and cauda equina. 6. There has been no significant change as compared to the MRI of03/10/2023. SIGNED BY: Joe Reid M.D. Authorizing ProviderResult TypeResult StatusJacob ForsytheMRI ORDERABLEFinal Result documented in this encounter Visit Diagnoses Diagnosis Low back pain, unspecified documented in this encounter Care Teams Team MemberRelationshipSpecialtyStart DateEnd Date Marlo Steward MD [address] [place] [address] PCP - GeneralFamily Medicine02/18/23 Kasey Lui MD [address] [place] [address] [address] [place] [address] Neurology07/04/24documented as of this encounter
[2025-02-01] VITALS (12 sets, daily range): BP systolic 103–126; BP diastolic 74–84; PULSE 71–86; RESP 16–20; TEMP 36.3–36.9; O2SAT 92–98; BMI 24.1
--- OUTSIDE RECORDS SUMMARY | 2025-02-01 02:21 | XMS_ITS | Clinical Summary ---
Author Organization [facility] Address [address] [place] [address] Care Team Providers Care Cost Control Analyst Name Role Phone Marlo Steward MD Primary Care Provider [phone] Allergies Active AllergyReactionsCriticalityNoted QotpEkycmvlyJtltjseyxvvuvyer14/19/2002 oral swelling Medications MedicationSigDispense QuantityRefillsLast FilledStart DateEnd DateStatus amphetamine-dextroamphetamine (ADDERALL) 20 MG tablet Take 20 mg by mouth12/26/2017Active DULoxetine (CYMBALTA) 30 MG capsule 60 + 30 mg = 90 mg per day06/24/2017Active DULoxetine (CYMBALTA) 60 MG capsule 06/26/2017Active Immunizations ImmunizationAdministration DatesNext SelKjsjfne77/03/2001 Family History Medical HistoryRelationCommentsAlcohol/DrugFatheralcoholEye DisorderMother glaucomoGynecologyMotherendometriosisLipidsMotherOsteoporosisMotherAlcohol/Drug Paternal GrandfatheralcoholAlzheimer DiseasePaternal GrandmotherArthritis Paternal GrandmotherostoearthritisBlood DiseasePaternal Grandmotherclotting disorderCerebrovascular DiseasePaternal GrandmotherHeart DiseasePaternal Grandmotherheart attackHypertensionPaternal GrandmotherOsteoporosisPaternal GrandmotherRespiratoryPaternal GrandmotherGynecologySisterendometriosis and 1 with cervicle dysplasiaRespiratorySisterasthmaRelationStatusCommentsFatherMother Paternal GrandfatherPaternal GrandmotherSister Social History Tobacco UseTypesPacks/DayYears UsedDateSmoking Tobacco: Every DayCigarettes0.514 Smokeless Tobacco: Never Tobacco Cessation:Ready to Q uit: Yes; Counseling Given: Yes Alcohol UseStandard Drinks/WeekCommentsYes0 (1 standard drink = 0.6 oz pure alcohol)occasionalAdolescent EducationAnswerDate RecordedGetting School Help NeededNot on file3CommentsNoSex and Gender InformationValueDate RecordedSex Assigned at BirthNot on fileLegal JbnPfadby67/04/2012 3:24 AM CHOPPER OPERATOR Gender IdentityNot on fileSexual OrientationNot on file Last Filed Vital Signs Vital SignReadingTime TakenCommentsBlood Ylttwmft798/8603/ 8:22 AM CDT Alnvo969504/28/2023 8:22 AM KWMNetjqplbrxx21 ??C (98.6 ??F)01/24/2018 9:57 AM CHOPPER OPERATOR Respiratory Hrny6658 9:57 AM CSTOxygen Vqvyuenhmw962%04/28/2023 8:22 AM CDTInhaled Oxygen Concentration--Xmabjs13.7 kg (158 lb)01/24/2018 9:56 AM CHOPPER OPERATOR Ifxuwc422.6 cm (5' 6)01/24/2018 9:56 AM CSTBody Mass Index25.512 9:56 AM CHOPPER OPERATOR Plan of Treatment Health MaintenanceDue DateLast DoneCommentsADVANCE CARE ZAHFWZWK80/04/1973ANNUAL REVIEW OF HM ZJHNJG16 1972CT JPTPMPFENHFU14/04/7710IUA57 1972FLEX SIG 1972NICOTINE/TOBACCO CESSATION COUNSELING Q 1 YR1972COLONOSCOPY 1982HEPATITIS B VACCINE (1 of 3 - 19+ 3-dose series)09/12/1991PNEUMOCOCCAL VACCINE 50+ YEARS (1 of 2 - PCV)09/12/1991PAP09/11/19938425JTVQF81/04/2013 DTAP/TDAP/TD VACCINE (6 - Td or Tdap)/, 02/11/2000, 02/11/2000, Additional history existsLUNG CANCER KKNKKYYTI09/04/2023ZOSTER VACCINE (1 of 2)3PHQ-2 (once per calendar year)2025YEARLY PREVENTIVE VISIT/OVID-19 VACCINE ( season) 2024INFLUENZA VACCINE (#1)/, 12/20/2014MAMMO SCREENING 607/, 08/30/2023, 08/27/2022, Additional history existsDIABETES ZILHLJASR88/07/2023, 12/28/2006COLORECTAL CANCER PEHIUMUAC45/13/2027 sDNA (Cologuard)/, 05/22/2023HIV SLPUKGFFKXyjgkwkgs37/15/2015 HEPATITIS C PIVHSAACKJuxqosplj66/14/2024HPV VACCINE (No Doses Required)Completed MENINGITIS VACCINEAged OutNo longer eligible based on patient's age to complete this topic Procedures Procedure NamePriorityDate/TimeAssociated DiagnosisCommentsHEMOGLOBIN J1VNizjjyn 04/14/2023 11:07 AM CHOPPER OPERATOR Deficiencies of limbs Right leg pain Left leg pain Right foot pain Left foot pain Abnormal computerized tomography of brain Diffuse myofascial pain syndrome Scapulohumeral fibrositis Restless legs syndrome (RLS) from Last 3 Months or Most Recently Relevant to Health Maintenance Results * Hemoglobin A1c (04/14/2023 11:07 AM CHOPPER OPERATOR)ComponentValueRef RangeTest Method Analysis TimePerformed AtPathologist SignatureHemoglobin A1C4.6<5.7 % 04/14/2023 11:30 AM CSTRH LABORATORYComment: Normal <5.7% Prediabetes 5.7-6.4% ?? Diabetes 6.5% or higher Note: Adopted from ADA consensus guidelines. Specimen (Source)Anatomical Location / LateralityCollection Method / Volume Collection TimeReceived TimeBloodBLOOD SPECIMEN / UnknownVenipuncture / Unknown 04/14/2023 11:07 AM CST04/14/2023 11:08 AM CHOPPER OPERATOR Narrative Authorizing ProviderResult TypeResult StatusAlyssa Heather GONZALEZ-CLAB - BLOOD ORDERABLESFinal ResultPerforming OrganizationAddressCity/State/ZIP CodePhone Number [facility] [address] (1st floor, no room number) [place] [address], [facility] [phone] from Last 3 Months or Most Recently Relevant to Health Maintenance Insurance Care Teams Team MemberRelationshipSpecialtyStart DateEnd Date Marlo Steward MD [address] [place] [address] [facility]04/28/23
--- OUTSIDE RECORDS SUMMARY | 2025-02-01 02:21 | XMS_ITS | Clinical Summary ---
Author Organization [facility] Address [address] [place] [address] Care Team Providers Care Leaf Coverer Name Role Phone Marlo Steward MD Primary Care Provider [phone] Tawanda Duvall PsyD, Unavailable Allergies Active AllergyReactionsCriticalityNoted DateCommentsProchlorperazineEdema 10/27/2001 oral swelling Medications MedicationSigDispense QuantityRefillsLast FilledStart DateEnd DateStatus cholecalciferol, Vitamin D3, 5,000 unit tab tablet Indications:Vitamin D deficiencyTake 1 Tablet (5,000 units) by mouth once daily. Take with food to enhance absorption. 90 Tablet 02/09/2023ctive medication order composer Indications:FibromyalgiaSolaray Vit C - 1000mg Daily Solaray zinc (50 mg), copper (2 mg), and iodine 53 mcg [place] Quercetin / Bromelain (200 mg vit c, 1000 mg quercitin, 150 mg bromelain) [place] Vit D3 w/ K2 - 1,000 IU Daily02/24/2023ctive fluticasone (50 mcg per actuation) nasal solution (FLONASE) Indications:Sinusitis, unspecified chronicity, unspecified locationInhale 1 [place]osta to both nostrils once daily. 1 g ctive triamcinolone (ARISTOCORT; KENALOG) 0.1 % cream Indications:DermatitisApply topically to affected area(s) two times daily. Can use for up to 2 weeks straight in any 1 area 80 g ctive DULoxetine (CYMBALTA) 60 mg Delayed-release capsule Indications:Major depression in remissionTake with 30 mg pill for 90 mg daily total 60 Capsule 5Active pantoprazole 40 mg delayed-release tablet Indications:Gastric refluxTAKE 1 TABLET(40 MG) BY MOUTH DAILY 90 Tablet 5Active dextroamphetamine-amphetamine (AdderalL) 20 mg tablet Indications:Primary narcolepsy without cataplexy (HC)TID, 8AM, 12pm and 4 pm. 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 90 Tablet 5Active clonazePAM (KLONOPIN) 1 mg tablet Indications:RBD (REM behavioral disorder)Take 2.5 Tablets (2.5 mg) by mouth at bedtime. 78 Tablet 5Active DULoxetine (CYMBALTA) 30 mg Delayed-release capsule Indications:Major depression in remissionTAKE 1 CAPSULE BY MOUTH EVERY DAY ALONG WITH A 60MG FOR 90MG A DAY 90 Capsule 5Active DULoxetine (CYMBALTA) 30 mg Delayed-release capsule Indications:Major depression in remissionTAKE 1 CAPSULE BY MOUTH EVERY DAY ALONG WITH A 60MG FOR 90MG A DAY 90 Capsule Discontinued(Reorder (E-cancel not sent)) clonazePAM (KLONOPIN) 1 mg tablet Indications:RBD (REM behavioral disorder)Take 2.5 Tablets (2.5 mg) by mouth at bedtime. 75 Tablet Expired Active Problems ProblemNoted DateDiagnosed DateMS (multiple sclerosis)03/23/2024Fibromyalgia 03/21/2024Primary generalized (osteo)qjypsxxzb18/11/2025Foraminal stenosis of cervical rpduev6503/21/20248957Zxksjggmol14/11/2025Vitreomacular adhesion of both eyes 03/21/2024Occipital neuralgia of right side03/21/20240516Arrzro34/11/2025Lumbar degenerative disc ltcaghs9503/21/2024Supraventricular risitnpazkc18/11/2025TMJ (dislocation of temporomandibular joint)03/21/2024PTSD (post-traumatic stress disorder)04/30/2022S/P wrist lraoxxv3805/01/2019Controlled substance agreement loforf5506/11/2017 Overview (06/11/2017): 01/04/17 signed .Laura Griffin DNP, MIXED SIGNAL DESIGN ENGINEER, FASHION DIRECTOR/psychiatry [place] /23/2018 Overview (03/02/2017): 2 episodes of DVT in the past, both provoked RBD (REM behavioral disorder)04/22/2015 Overview (04/22/2015): Diagnosed by [facility] Major depressive disorder, recurrent, iwpudgjy47/05/2014 Resolved Problems ProblemNoted DateDiagnosed DateResolved DateDe Quervain's tenosynovitis, left DHD, predominantly inattentive type Controlled substance agreement Overview (06/04/2016): Signed: 02/21/2013 Dr. Baljit Medina / psychiatry Nightmare wxkfgchf50Depression/DD (attention deficit disorder)Acute deep vein thrombosis (DVT) of lower tzngzlufi97 Overview (03/21/2024): DVT or embolism of lower extremity, not otherwise specified Unspecified asthma(493.90) Immunizations ImmunizationAdministration DatesNext HmeKMgX5207/05/1973,1972,1972 Influenza, LJA93502/25/2018,12/20/2014MMR05/26/1976Polio Virus, Unspecified 07/05/1973,1972Td (Age >=7 Years)06/02/1989Tdap06/03/2010Tetanus Toxoid 02/11/2000 Family History Medical HistoryRelationNameCommentsDepressionDaughterLindsey BriskieGood [facility] DaughterLindsey BriskieEndometriosisDepressionFatherLudwig (Conner) KoktavyGood HealthFatherLudwig (Conner) KoktavyCancer bladder, kidney, throughout body Coronary artery diseaseMaternal GrandmotherDoris ChristophersenHeart failure Maternal GrandmotherDoris ChristophersenStrokeMaternal GrandmotherDoris ChristophersenDepressionMotherSusan CatonGood HealthMotherSusan CatonDepression, kidney stones, bladder surgery, bowl issuesOsteoporosisMotherSusan CatonLupus Paternal Aunt 1Liz KroughOsteoarthritisPaternal Aunt 1Liz KroughOsteoporosis Paternal Aunt 1Liz KroughRheum arthritisPaternal Aunt 1Liz KroughOsteoporosis Paternal Aunt 2Terry ReuversRheum arthritisPaternal Aunt 2Terry ReuversRheum arthritisPaternal GrandfatherLudwig KoktavyStrokePaternal GrandfatherLudwig KoktavyAnxiety disorderPaternal GrandmotherViola KoktavyCancer-breastPaternal GrandmotherViola KoktavyAmaloidosisCoronary artery diseasePaternal Grandmother [place] KoktavyDepressionPaternal GrandmotherViola KoktavyHeart failurePaternal GrandmotherViola KoktavyOsteoarthritisPaternal GrandmotherViola Koktavy OsteoporosisPaternal GrandmotherViola KoktavyRheum arthritisPaternal Grandmother [place] KoktavyStrokePaternal GrandmotherViola KoktavyDepressionSister 1Kelly KoktavyGood HealthSister 1Kelly KoktavyThyroidThyroid DiseaseSister 1Kelly KoktavyGood HealthSister 2Jessica GrisimRestless leg syndromeRelationNameStatus CommentsDaughterLindsey BriskieFatherLudjareth (Conner) KoktavyAliveMaternal GrandmotherDoris ChristophersenMotherSusan CatonAlivePaternal Aunt 1Liz Krough Paternal Aunt 2Terry ReuversPaternal GrandfatherLudwig KoktavyPaternal GrandmotherViola KoktavySister 1Kelly KoktavyAliveSister 2Jessica GrisimAlive Social History Tobacco UseTypesPacks/DayYears UsedDateSmoking Tobacco: Every DayCigarettes0.538 Started: 1987Smokeless Tobacco: Never Tobacco Cessation:Ready to Q uit: Not Asked; Counseling Given: Not Answered Comments:1/5 pack/day Alcohol UseStandard Drinks/EltjPkmnsekrGrs35 (1 standard drink = 0.6 oz pure alcohol)a couple a dayPHQ-2AnswerDate RecordedPHQ-2 TOTAL YUXKA09205/11/2023Social ConnectionsAnswerDate RecordedDo you often feel lonely or isolated from those around you?Financial Resource StrainAnswerDate RecordedDifficulty of Paying Living Iyuzuhyv276/07/2025Difficulty of Paying Living Vaazkhqm322/07/2025 Food InsecurityAnswerDate RecordedDo you worry your food will run out before you are able to buy more?Transportation NeedsAnswerDate RecordedDoes lack of transportation keep you from medical appointments?Does lack of transportation keep you from work, meetings or getting things that you need?1 03/17/2024Housing StabilityAnswerDate RecordedWhat is your housing situation today?UtilitiesAnswerDate RecordedDo you have trouble paying for utilities (for example, heat, electricity, water, phone)? CommentsNoSex and Gender InformationValueDate RecordedSex Assigned at BirthNot on fileLegal ArqKdgjjx45/14/2013 6:48 AM CSTGender IdentityNot on fileSexual OrientationNot on file Last Filed Vital Signs Vital SignReadingTime TakenCommentsBlood Gsorjxdu370/8403/21/2024 1:50 PM COMPUTER TRAINING SPECIALIST Mjeqi203003/21/2024 1:47 PM MMPGymxdfgssud56.2 ??C (98.9 ??F)11/28/2021 9:45 AM CDTRespiratory Jgvy285503/17/2022 11:20 AM CSTOxygen Zpelujgedg847%03/21/2024 1:47 PM CSTInhaled Oxygen Concentration--Hcmalx16.9 kg (158 lb 9.6 oz)03/21/2024 1:47 PM YNYDrxvgx026.6 cm (5' 4)03/07/2024 11:10 AM CSTBody Mass Index27.22 03/07/2024 11:10 AM COMPUTER TRAINING SPECIALIST Plan of Treatment DateTypeDepartmentCare Team (Latest Contact Info)Awmuyrgqzee69/24/2026 10:15 AM CDTTelemedicine [facility] [address] [place] [phone] Jeanna High, MERCURY RECOVERER [address] [place], [place] [phone] Health MaintenanceDue DateLast DoneCommentsHepatitis B series for 19+ (1 of 3 - 19+ 3-dose series)09/12/1991Pneumococcal series for age 50+ (1 of 2 - PCV) 09/12/1991Tetanus zvrudmq22/, 06/02/1989RSV vaccine for adults or (1 - Risk 50-74 years 1-dose series)2022Zoster (shingles) series for age 50+ (1 of 2)2022epression screening for age 12+05/12/2024 05/13/2023, 05/11/2023, 05/11/2023, Additional history existsCOVID-19 vaccine series ( - season)2024Influenza Vaccine (#1)501/, 12/20/2014BMI (ht and wt on same day) for age 18+6003/07/2024, 05/11/2023, 01/13/2023, Additional history existsMammogram for age 40-75 , 08/30/2023, 08/27/2022Fecal testing sDNA-FIT (Cologuard) for age 45-7504/Lipids for age 45-7502//, 06/22/2023, 01/26/2017HIV for age 15-59Xdhwcmqnl63/15/2015Hepatitis C screening for age 18-59Jwtirytnx04/14/2024 Procedures Procedure NamePriorityDate/TimeAssociated DiagnosisCommentsXR MAMMO JERAD BILAT SCREEN BQFZWGDRvgertd78/10/2025 3:30 PM CDT Visit for screening mammogram LIPID TNUVIGrxnpfh43/11/2025 3:06 PM COMPUTER TRAINING SPECIALIST Screening, lipid ANTI BAVHwbpolb08/14/2024 12:15 PM CDT Multiple sclerosis (HC) Encounter for long-term (current) use of other medications SDNA-FIT EXTERNAL (COLOGUARD)Emqvsoh3105/22/2023 10:30 AM CDT Screen for colon cancer ANTI HIV 1/7Tfayuya79/15/2015 12:13 PM COMPUTER TRAINING SPECIALIST Cervical lymphadenopathy from Last 3 Months or Most Recently Relevant to Health Maintenance Results * XR MAMMO JERAD BILAT SCREEN IMPLANT (10/18/2024 3:30 PM CDT)Anatomical Region LateralityModalityBREASTS, Breast Left, Breast RightBilateralMammography Specimen (Source)Anatomical Location / LateralityCollection Method / Volume Collection TimeReceived Time Impressions 10/19/2024 2:20 PM CDT There is no radiographic evidence for malignancy. Recommend annual mammograms. MAMMOGRAM ASSESSMENT: ??ACR 2 Benign PATIENTS: You will also receive a letter with your examination results in an easy to read format. ??If you have questions about your results, please contact your referring provider. Narrative 10/19/2024 2:20 PM CDT For Patients: As a result of the Century Cures Act, medical imaging exams and procedure reports are released immediately into your electronic medical record. You may view this report before your referring provider. If you have questions, please contact your health care provider. XR MAMMO JERAD BILAT SCREEN IMPLANT [[id number]] CLINICAL HISTORY: ??This is an asymptomatic 54 y.o. patient. INDICATION FOR EXAM: Mammogram Screening. TECHNIQUE: CC and MLO views were obtained. Implant displacement views were obtained. This study was evaluated with the assistance of Computer-Aided Detection. Breast Tomosynthesis was used in interpretation. COMPARISON FILMS: Yes 08/30/23 [facility] 08/27/22 [facility] FINDINGS: ??There are scattered areas of fibroglandular density. ??No suspicious masses or microcalcifications. ??There are breast implant(s) present.. Authorizing ProviderResult TypeResult StatusKyle Julio Steward MDMAMMOFinal Result * (ABNORMAL) LIPID PANEL (03/21/2024 3:06 PM COMPUTER TRAINING SPECIALIST)ComponentValueRef RangeTest MethodAnalysis TimePerformed AtPathologist SignatureCHOLESTEROL, EHAMN811(H) <200 mg/dLQuest [place] S&TeHDL MGLKPEZJWVJ67> OR = 50 mg/dLQuest [place] S&TeTRIGLYCERIDES122<150 mg/dLQuest [place] S&Te LDL-AQGCEHEZFJQ908(H)mg/dL (calc)[facility] DaleComment: Reference range: <100 Desirable range <100 mg/dL for primary prevention; <70 mg/dL for patients with CHD or diabetic patients with > or = 2 CHD risk factors. LDL-C is now calculated using the Phillip-Cristal calculation, which is a validated novel method providing better accuracy than the Friedewald equation in the estimation of LDL-C. Phillip SS et al. AMERICA. 2013;310(19): 9884-7732 (http://education.Otto Clave.Campus Diaries/faq/CKY625) CHOL/HDLC RATIO2.6<5.0 (calc)ePACT NetworkeNON HDL JUBJFEUUCTV564 (H)<130 mg/dL (calc)ePACT NetworkeComment: For patients with diabetes plus 1 major ASCVD risk factor, treating to a non-HDL-C goal of <100 mg/dL (LDL-C of <70 mg/dL) is considered a therapeutic option. Specimen (Source)Anatomical Location / LateralityCollection Method / Volume Collection TimeReceived TimeBloodBLOOD SPECIMEN / Mfiaruh6103/21/2024 3:06 PM COMPUTER TRAINING SPECIALIST 03/21/2024 3:06 PM COMPUTER TRAINING SPECIALIST Narrative Authorizing ProviderResult TypeResult StatusMarlo Steward [facility] – ARDMOREHEMISTRYFinal ResultPerforming OrganizationAddressCity/State/ZIP CodePhone Number [facility] [address] [place] [address], [place] [phone] [facility] [address] [facility] [place] [address] * ANTI HCV (06/22/2023 12:15 PM CDT)ComponentValueRef RangeTest MethodAnalysis TimePerformed AtPathologist SignatureHEPATITIS C ANTIBODYNon-Reactive Non-Ihimytjt03/15/2024 6:35 AM CDRIVERSIDE [facility] Comment:Please note, per www.CDC.gov: If a patient is known to be at high risk of HCV infection, or is symptomatic, and the physician's suspicion of HCV infection is high, HCV RNA testing is often employed and is of diagnostic value, even after an initial negative anti-HCV test result.Specimen (Source) Anatomical Location / LateralityCollection Method / VolumeCollection Time Received TimeBloodBLOOD SPECIMEN / UnknownButterfly / Yjleegk4606/22/2023 12:15 PM CDT06/22/2023 12:19 PM CDT Narrative Authorizing ProviderResult TypeResult StatusMarlo Steward MDSEND OUTSFinal ResultPerforming OrganizationAddressCity/State/ZIP CodePhone Number [facility] [address] [place] [id number], * SDNA-FIT EXTERNAL (COLOGUARD) (05/22/2023 10:30 AM CDT)ComponentValueRef Range Test MethodAnalysis TimePerformed AtPathologist SignatureNONINV COLON CA DNA+OCC BLD SCRN STL-QNLRjzvymxdYnniveuc40/22/2024 9:34 AM [facility] (CLIA #:[id number])Comment: NEGATIVE TEST RESULT. A negative Cologuard result indicates a low likelihood that a colorectal cancer (CRC) or advanced adenoma (adenomatous polyps with more advanced pre-malignant features) ??is present. The chance that a person with a negative Cologuard test has a colorectal cancer is less than 1in 1500 (negative predictive value >99.9%) or has an advanced adenoma is less than 5.3% (negative predictive value 94.7%). These data are based on a prospective cross-sectional study of 10,000individuals at average risk for colorectal cancer who were screened with both Cologuard and colonoscopy. (Mamie Lynn al, N Engl J Med 2014;370(14):8401-8847) The normal value (reference range) for this assay is negative. COLOGUARD RE-SCREENING RECOMMENDATION: Periodic colorectal cancer screening is an important part ofpreventive healthcare for asymptomatic individuals at average risk for colorectal cancer. ??Following a negative Cologuard result, the [place] [employer] Society and U.S. Multi-Society Task Force screening guidelines recommend a Cologuard re-screening interval of 3 years. References: [place] [employer] Guideline for Colorectal Cancer Screening: https://www.cancer.or g/cancer/ulffv-ulecph-qolkqa/zdrgzlkwr-peajxngmj-mabeeol/acs-recommendations.htm celia; Jose A FAULKNER, Rajendra BUSTILLO, Sierra SanonK, Colorectal Cancer Screening: Recommendations for Physicians and Patients from the U.S. Multi-Society Task Force on Colorectal Cancer Screening , Am J Gastroenterology 2017; 112:8967-1702. TEST DESCRIPTION: Composite algorithmic analysis of stool DNA-biomarkers with hemoglobin immunoassay. ?? Quantitative values of individual biomarkers are not reportable and are not associated with individual biomarker result reference ranges. Cologuard is intended for colorectal cancer screening ofadults of either sex, 45 years or older, [...] screened with both Cologuard and colonoscopy. (Mamie Lynn al, N Engl J Med 2014;370(14):6696-1065.) Cologuard may produce a false negative or false positive result (no colorectal cancer or precancerous polyp present at colonoscopy follow up). A negative Cologuard test result does not guarantee the absence of CRC or advanced adenoma (pre-cancer). The current Cologuard screening interval is every 3 years. ([place] [employer] Society and U.S. Multi-Society Task Force). Cologuard performance data in a 10,000 patient pivotal study using colonoscopy as the reference method can be accessed at the following location: www.Zannel.Campus Diaries/results. Additional description of the Cologuard test process, warnings and precautions can be found at www.cologuard.Campus Diaries. Specimen (Source)Anatomical Location / LateralityCollection Method / Volume Collection TimeReceived TimeStool specimen (specimen) (Rectum)05/22/2023 10:30 AM CDT05/25/2023 1:54 PM CDT Narrative Authorizing ProviderResult TypeResult StatusMarlo Steward MDURINEFinal ResultPerforming OrganizationAddressCity/State/ZIP CodePhone Number [facility] (CLIA #:[id number]) [address] [place] [address], * ANTI HIV 1/2 (01/22/2015 12:13 PM COMPUTER TRAINING SPECIALIST)ComponentValueRef RangeTest Method Analysis TimePerformed AtPathologist SignatureHIV-1/HIV-2 ANTIBODYNon-Reactive Non-Reactive 01/22/2015 4:53 PM CSTDOMINION H[facility] MediastayCENTRAL LABORATORYSpecimen (Source)Anatomical Location / LateralityCollection Method / VolumeCollection TimeReceived TimeBlood specimen (specimen)BLOOD SPECIMEN / UnknownVenipuncture / Jpxivon6201/22/2015 12:13 PM CST01/22/2015 12:13 PM COMPUTER TRAINING SPECIALIST Narrative [facility] - 01/22/2015 4:53 PM COMPUTER TRAINING SPECIALIST HIV-1 p24 and HIV-1/HIV-2 Ab not detected Authorizing ProviderResult TypeResult StatusMarlo Steward MDSEND OUTSFinal ResultPerforming OrganizationAddressCity/State/ZIP CodePhone Number [facility] [address] [place] [address], from Last 3 Months or Most Recently Relevant to Health Maintenance Insurance MemberSubscriberPlan / Payer (Effective 2006-Present)Name:Ashley Hatch Relation to Subscriber:EmployeeName:[employer] Date of :1998 (Home) (Work) Address: [address] [place] [address] Payer ID:Not on file Group ID:Not on file Type:Not on file [phone] Address: [address] [place] [address] Advance Directives * Full Code (Latest Code Status on File) Date ActivatedDate InactivatedComments04/19/2019 12:41 PM04/19/2019 6:48 PM Care Teams Team MemberRelationshipSpecialtyStart DateEnd Date Marlo Steward MD [address] [place] [address] PCP - GeneralFamily Practice03/28/15 Tawanda Duvall PsyD, MARÍA ELENA [address] [place] [address] Psychology05/20/22
--- OUTSIDE RECORDS SUMMARY | 2025-02-01 02:21 | XMS_ITS | Clinical Summary ---
Author Organization [facility] Address [address] [place] [address] Care Team Providers Care Baseball Hand Sewer Name Role Phone Marlo Steward MD Primary Care Provider [phone] Kasey Lui MD Unavailable [phone] Allergies Active AllergyReactionsCriticalityNoted DateCommentsMelatoninAnxietyLow 02/26/2023 She says it would keep her awake and gets fidgety ProchlorperazineSwelling, lips/zupptqZbvd11/19/2002 oral swelling Medications MedicationSigDispense QuantityRefillsLast FilledStart DateEnd DateStatus Cholecalciferol, Vitamin D3, 125 mcg (5,000 unit) oral capsule TAKE ONE CAPSULE BY MOUTH ONE TIME DAILY WITH FOOD*02/10/2023ctive DULoxetine (CYMBALTA) 30 mg oral delayed release capsule Take with a 60 mg pill for 90 mg a day total03/05/2022ctive DULoxetine (CYMBALTA) 60 mg oral delayed release capsule TAKE 1 CAPSULE BY MOUTH DAILY ALONG WITH 30 MG CAPSULE FOR 90 MG DAILY TOTAL Active pantoprazole (PROTONIX) 40 mg oral delayed release tablet Take 1 tablet (40 mg) by mouth Daily.11/09/2019Active rhhzczbrrn-oxsqgchdvmnrh-xhfzozmb 50-325-40 mg (FIORICET/ESGIC) 50-325-40 mg oral tablet Indications:H/O headache following lumbar punctureTAKE 1 TABLET BY MOUTH EVERY 4 HOURS NEEDED FOR HEADACHE 10 tablet 05/10/2023ctive Armodafinil 250 mg oral Tab Take 1 tablet (250 mg) by mouth Daily.5Active clonazePAM (KLONOPIN) 1 mg oral tablet Take 2.5 Tablets (2.5 mg) by mouth at bedtime.*5Active fluticasone (FLONASE) 50 mcg/actuation nasal spray Instill 1 spray into each nostril Daily.4Active triamcinolone acetonide (Kenalog) 0.1% cream Apply to skin twice a day.4Active glatiramer 40 mg/mL SubQ Inject 1 mL (40 mg) under the skin every Wednesday, Wednesday and Wednesday. 12 mL 1105Active glatiramer (COPAXONE) 20 mg/mL SubQ Syringe Inject 20 mg under the skin once daily. 30 mL 1105Active Active Problems ProblemNoted DateDiagnosed DateBack muwdquac10/25/2025MS (multiple sclerosis) 03/23/2024TMJ (dislocation of temporomandibular joint)03/21/20247157Ryoruf54/11/2025 Supraventricular klccmhzgyeu01/11/2025Occipital neuralgia of right side 03/21/20246710Kldlusbsts47/11/2025Lumbar degenerative disc rtkwcah8303/21/2024 Foraminal stenosis of cervical jehjnb7403/21/20249854Kqovahjxhdli84/11/2025Primary generalized (osteo)yzrvhysmx83/11/2025Vitreomacular adhesion of both eyes 03/21/2024PTSD (post-traumatic stress disorder)04/30/2022S/P wrist surgery 05/01/2019Controlled substance agreement nlzgsq2906/11/2017 Overview (04/04/2024): 01/04/17 signed .Laura Griffin DNP, HEAD OF CYTOGENETICS, PIE BOTTOMER/psychiatry [place] utmbqdgi45/23/2018 Overview (04/04/2024): 2 episodes of DVT in the past, both provoked RBD (REM behavioral disorder)04/22/2015 Overview (04/04/2024): Diagnosed by [facility] sleep center Attention-deficit hyperactivity disorder, predominantly hyperactive type 05/09/2012 Overview (04/04/2024): ADHD. Acute thromboembolism of deep veins of lower kzusbsmdb98/02/2013 Overview (04/04/2024): DVT or embolism of lower extremity, not otherwise specified Major depressive disorder, recurrent, ahfvihgx41/25/2011 Overview (04/04/2024): Depressive disorder, major, recurrent episode Encounters DateTypeDepartmentCare FdwzZmbiwuakmeg44/23/2025 9:00 AM CSTAncillary Procedure [facility] [address] [place] [address] Low back pain, unspecifiedfrom Last 3 Months Social History Tobacco UseTypesPacks/DayYears UsedDateSmoking Tobacco: Every DayCigarettes0.535 Smokeless Tobacco: Never Tobacco Cessation:Ready to Q uit: No; Counseling Given: Yes Alcohol UseStandard Drinks/WeekCommentsYes5 (1 standard drink = 0.6 oz pure alcohol)PHQ-2AnswerDate RecordedPHQ2 Whxwl002/19/2024CommentsUnknownSex and Gender InformationValueDate RecordedSex Assigned at BirthNot on fileLegal OemEtzyhz23/22/2013 7:44 AM CDTGender IdentityNot on fileSexual OrientationNot on file Last Filed Vital Signs Vital SignReadingTime TakenCommentsBlood Pressure--Pulse--Temperature-- Respiratory Yexr455907/29/2023 12:45 PM CDTOxygen Saturation--Inhaled Oxygen Concentration--Jljiiz23.6 kg (160 lb)07/29/2023 12:45 PM RPGMcmefp061.4 cm (5' 5.5)07/29/2023 12:45 PM CDTBody Mass Index26.22007/29/2023 12:45 PM CDT Plan of Treatment Health MaintenanceDue DateLast XamoCfpxexmqTvlwbvvgvil42/04/1973Lipid Screening 1972Pap Smear1972Anxiety Follow-Up (JASIEL-7)1973Pneumococcal 50+ Years (1 of 2 - PCV)09/12/1991Adult Tetanus Youzbdf90/, 02/11/2000, 06/02/1989Yearly Review of HCD2022Zoster Vaccine (1 of 2) 2022epression Follow-Up (PHQ-9)OVID-19 Vaccine (1 - season)2024Influenza Vaccine (#1)/, 12/20/2014 Mammogram Jjrlthspi76, 10/18/2024, 08/30/2023, Additional history existsRSV Vaccines (1 - 1-dose 75+ series)09/12/2047Hepatitis C YmvaogaxyLhhttnczd30/14/2024Meningococcal B VaccineAged OutNo longer eligible based on patient's age to complete this topic Procedures Procedure NamePriorityDate/TimeAssociated DiagnosisCommentsMRI SPINE LUMBAR W/O SWGLijduel46/23/2025 8:54 AM PESTICIDE CHEMIST Low back pain, unspecified from Last 3 Months Results * MRI SPINE LUMBAR W/O CON (01/30/2025 8:54 AM PESTICIDE CHEMIST)Anatomical RegionLaterality ModalitySpineMagnetic ResonanceSpecimen (Source)Anatomical Location / LateralityCollection Method / VolumeCollection TimeReceived Time01/30/2025 11:40 AM PESTICIDE CHEMIST Impressions 01/30/2025 11:46 AM PESTICIDE CHEMIST 1. Small left paracentral caudal disc extrusion [...] Joe Reid M.D. Narrative 01/30/2025 11:46 AM PESTICIDE CHEMIST MRI LUMBAR SPINE 01/30/2025 8:36 AM. CLINICAL INFORMATION: Low back pain. TECHNIQUE: ??Routine-Sagittal T1, sagittal T2, sagittal STIR, axial T1, axial T2. COMPARISON: Previous [facility] MRI dated ??03/10/2023. FINDINGS: ?? PREVIOUS SURGERY: [...] sagittal STIR, axial T1,axial T2. COMPARISON: Previous [facility] MRI dated 03/10/2023. FINDINGS: PREVIOUS SURGERY: None. [...] Authorizing ProviderResult TypeResult StatusJacob ForsytheMRI ORDERABLEFinal Result from Last 3 Months Insurance Care Teams Team MemberRelationshipSpecialtyStart DateEnd Date Marlo Steward MD [address] [place] [id number] [facility] - [facility]02/18/23 Kasey Lui MD [address] [place] [address] [id number] [place] [id number] Neurology07/04/24
--- NOTE | 2025-02-01 02:47 | ED.GENADULT ---
HPI - General Adult General Time Seen by Provider: 02:47 Date Seen: 02/01/25 Chief complaint: Unspecified Complaint, Adult Stated complaint: L face numbness, trouble breathing Time Seen by Provider: 02/01/25 02:46 Source: patient and RN notes reviewed Mode of arrival: ambulatory Limitations: no limitations History of Present Illness HPI narrative: This 54-year-old female is coming into the ER after an episode where she states she quit breathing for about a minute. She was just lying in bed with her significant other, started to feel nauseated like she was going to get sick, she suddenly felt like she could not breathe. She then reportedly passed out, he noted her eyes rolled back. He did not note any seizure activity. Unknown what her actual breathing or heart rate status was during that time but maybe lasted a minute. He states he was able to get her to set up, she stated that she was back. She has a history of SVT, her watch usually alerts her to SVT events. She cannot say if she was feeling anything with her heart at the time of this event. About 15-20 minutes after this happen, started with left facial numbness tingling sensation, also has sharp pain in her head. She did have a migraine earlier this morning, this pain she is feeling now is different from that. She did take her migraine medicine this morning. She has not been sick with anything. She does have degenerative spine issues in her cervical and lumbar spine. Recently had a lumbar MR, she states they are going to do some more radiofrequency ablations. She also has a history of multiple sclerosis. No drug use, did drink some alcohol earlier. Related Data Home Medications ?Medication ?Instructions ?Recorded ?Confirmed dextroamphetamine-amphetamine 20 20 mg PO TID 09/20/21 02/01/25 mg tablet fluticasone propionate 50 1 spray intranasal DAILY PRN 12/01/21 02/01/25 mcg/actuation nasal spray,suspension duloxetine 30 mg capsule,delayed 90 mg PO DAILY 12/11/21 02/01/25 release pantoprazole 40 mg tablet,delayed 40 mg PO DAILY 10/22/23 02/01/25 release clonazepam 1 mg tablet 2.5 mg PO HS 02/01/25 02/01/25 prednisone 10 mg tablet 10 - 30 mg PO .UD 02/01/25 02/01/25 Allergies Allergy/AdvReac Type Severity Reaction Status Date / Time prochlorperazine (From Allergy Verified 02/01/25 04:21 Compazine) Review of Systems Status of ROS: Reports: 6 or more systems reviewed and unremarkable except as noted in History and below [facility] Medical History History of tibial fracture ?Z87.81 - Personal history of (healed) traumatic fracture (ICD-10) Hiatal hernia ?K44.9 - Diaphragmatic hernia without obstruction or gangrene (ICD-10) Blood disorder ?D75.9 - Disease of blood and blood-forming organs, unspecified (ICD-10) Asthma ?J45.909 - Unspecified asthma, uncomplicated (ICD-10) Hand fracture ?S62.90XA - Unspecified fracture of unspecified wrist and hand, initial encounter for closed fracture (ICD-10) Wrist pain ?M25.539 - Pain in unspecified wrist (ICD-10) Surgical History S/P right knee arthroscopy (06/24/07) ?Z98.890 - Other specified postprocedural states (ICD-10) History of hand surgery (09/17/08) ?Z98.890 - Other specified postprocedural states (ICD-10) S/P ORIF (open reduction internal fixation) fracture (12/31/06) ?Z98.890 - Other specified postprocedural states (ICD-10) ?Z87.81 - Personal history of (healed) traumatic fracture (ICD-10) Status post left foot surgery (03/08/17) ?Z98.890 - Other specified postprocedural states (ICD-10) H/O hand surgery (08/31/19) ?Z98.890 - Other specified postprocedural states (ICD-10) H/O hand surgery (12/03/21) ?Z98.890 - Other specified postprocedural states (ICD-10) H/O: hysterectomy ?Z90.710 - Acquired absence of both cervix and uterus (ICD-10) Social History What is your current living situation?: I presently have a place to live Problems where you live: no known problems In the past 12 months, utilities in danger of being shut off: no In past 12 months, lack of transportation kept you from medical appts, meetings, work, or getting things needed for daily living: no In the past 12 mos, have been you worried that your food would run out before you had money to buy more?: never true In the past 12 mos, the food you bought just didn't last and you didn't have money to buy more?: never true Highest level of school completed/degree received: some college, no degree Smoking Status: Current every day smoker What tobacco products do you use: cigarettes Do you use any of these nicotine containing products: None Second hand tobacco smoke exposure: No How often do you have a drink containing alcohol: 4 or more times a week How many standard drinks containing alcohol do you have on a typical day: 1 or 2 AUDIT-C Alcohol total score: 4 Non-prescribed substance use: denies use Caffeine: Yes How often does anyone, including family, friends and others, physically hurt you: never How often does anyone, including family, friends and others, insult or talk down to you: never How often does anyone, including family, friends and others, threaten you with harm: never How often does anyone, including family, friends and others, scream or curse at you: never Exam Const: Vital Signs, click to edit/add: Vital Signs - 24 hr 02/01/25 02:34 02/01/25 02:43 02/01/25 02:58 Temperature 97.8 F Pulse Rate [Right Pulse Oximeter] 81 Respiratory Rate 20 Respiratory Rate [ Left Anterior Head ] 18 Blood Pressure [Ri ght Upper Arm] 126/84 Pulse Oximetry 92 95 Oxygen Delivery Me thod Room Air This 54-year-old female is alert, interactive, no apparent distress. She is ambulatory into the ED of her own accord. She was resting in exam room 1 when I came in. Pupils equal round reactive, sclera clear, symmetrical facial function, speech normal. On light touch sensation she states the left side feels more dull in comparison to the right. She still has normal motor function of the face. Neck supple, no jugular venous distension, no adenopathy or masses. She is able to sit up easily, lungs are clear, good air entry, no wheezing or crackles, no tachypnea, no accessory muscle use. CV regular rate and rhythm, no murmur, normal S1-S2, no S3-S4. Abdomen is soft, nontender, nondistended, no organomegaly, rebound or guarding, no masses. Strength is 5/5 and symmetric, normal sensation in her extremities. Documenting provider has reviewed patient's vital signs: yes Course Course ED Course: This 54-year-old female is presenting with left facial pain and associated numbness tingling after syncopal event. Will have her on cardiac monitoring and pulse oximetry looking for any arrhythmia or hypoxia. Will give full complement of labs including a D-dimer. Will be proceeding with head CT and CT angiography of head and neck, will talk to Neurology. She has a very complex past medical history and confounding issues such as MS, migraines. She also has a history of SVT. With her current presentation I doubt that this is thromboembolic disease. Could be some arrhythmia led to the syncopal episode which in turn causes some and neurovascular issues. Somewhat difficult to piece this together at this time but she will be monitored here. Reevaluation(s) Time of Reevaluation #1: 04:04 Reevaluation #1: Briefly reviewed with patient that her head CT and CT angiograms of her head neck are not showing any acute pathology. We did discuss that I had spoken with Neurology, they were recommending that she have MR imaging of her head with and without contrast to further evaluate the multiple sclerosis. Reviewed with her that I cannot do MR imaging at this time, Wednesday would likely be the 1st day that it could happen and I cannot do this outpatient for her. She does not have a neurologist at this time. We are waiting a couple labs to come back, will be back to talk to her at length once we have all of the labs back. Time of Reevaluation #2: 04:45 Reevaluation #2: Have reviewed all the labs, D-dimer is normal, troponin and proBNP is normal. She has had no arrhythmia or hypoxia on her monitoring here. Dr. Patricia has recommended MR imaging to be done and would prefer patient states to have this done. Patient is in agreement to stay, she understands we may not be able to do this until Wednesday. She can be on monitoring here to look for arrhythmia, echo could potentially be scheduled. Consultations Consultation #1: Have spoken with Stroke Neurology Dr. Patricia from [place]. We reviewed patient's case and history. She does think that this patient should have an MRI of her head with and without contrast to evaluate for MS. We did discuss the syncope on top of this case. Discussed cardiac arrhythmia. Could have patient get an echo and do outpatient Zio patch monitoring as well. Time: 03:54 Consultation #2: Have spoken to the night hospitalist Dr. Cornejo whom does understand the difficulties with this patient. This certainly could be concerning for MS flare for her. But she has also had the syncope. I have no way to get her outpatient neurology follow-up. Will do observation until she can get MR imaging of her head with and without contrast. He does accept patient. Time: 05:10 Vital Signs Vital signs: Initial Vital Signs Temperature 97.8 F 02/01/25 02:34 Temperature Source Oral 02/01/25 02:34 Pulse Rate 81 02/01/25 02:34 Respiratory Rate 20 02/01/25 02:34 Blood Pressure 126/84 02/01/25 02:34 Blood Pressure Mean 98 02/01/25 02:34 Blood Pressure Position Sitting 02/01/25 02:34 Pulse Oximetry 92 02/01/25 02:34 Oxygen Delivery Method Room Air 02/01/25 02:34 Vital Signs Temperature 97.8 F 02/01/25 02:34 Pulse Rate 81 02/01/25 02:34 Respiratory Rate 20 02/01/25 02:34 Blood Pressure 126/84 02/01/25 02:34 Pulse Oximetry 92 02/01/25 02:34 Oxygen Delivery Method Room Air 02/01/25 02:34 Temperature 97.6 F 02/02/25 12:33 Pulse Rate 85 02/02/25 12:33 Respiratory Rate 18 02/02/25 12:33 Blood Pressure 118/82 02/02/25 12:33 Pulse Oximetry 97 02/02/25 12:33 Oxygen Delivery Method Room Air 02/02/25 12:33 Medications Administered Medications: Generic Name Dose Route Start Last Admin Trade Name Freq PRN Reason Stop Dose Admin Acetaminophen 650 mg 02/01/25 13:00 02/02/25 12:32 Acetaminophen 325 Mg Tablet PO 650 mg QID CAROLYNN Administration Clonazepam 2.5 mg 02/01/25 21:00 02/01/25 21:25 Clonazepam 0.5 Mg Tablet PO 2.5 mg HS CAROLYNN Administration Duloxetine HCl 90 mg 02/01/25 15:00 02/02/25 09:59 Duloxetine [address] PO 90 mg DAILY CAROLYNN Administration Ketorolac Tromethamine 10 mg 02/01/25 10:51 02/02/25 14:04 Ketorolac 10 Mg Tablet PO 10 mg TID PRN Administration Nicotine 1 patch 02/01/25 10:45 02/02/25 12:31 Nicotine 21 Mg Patch TRANSDERMA 1 patch Q24H CAROLYNN Administration Dextroamphetamine- 0 mg 02/01/25 16:00 02/02/25 12:31 Amphetamine 20 Mg PO 20 mg Tablet TID@0800,1200,1600 CAROLYNN Administration Omeprazole 40 mg 02/02/25 09:00 02/02/25 08:23 Omeprazole [address] PO 40 mg DAILY CAROLYNN Administration Prednisone 10 mg 02/01/25 21:05 02/02/25 14:10 Prednisone 10 Mg Tablet PO 10 mg TID CAROLYNN Administration Sodium Chloride 5 ml 02/01/25 09:00 02/02/25 11:20 Sodium Chloride 0.9 % (Flush) 10 Ml Syringe IVF 5 ml BID CAROLYNN Administration Discontinued Medications Generic Name Dose Route Start Last Admin Trade Name Freq PRN Reason Stop Dose Admin Ketorolac Tromethamine 15 mg 02/01/25 05:57 02/01/25 06:00 Ketorolac 15 Mg/Ml Inj IVP 02/01/25 05:58 15 mg ONCE ONE Administration Dextroamphetamine- 0 mg 02/01/25 14:00 02/01/25 13:55 Amphetamine 20 Mg PO 10 mg Tablet TID CAROLYNN Administration Sumatriptan Succinate 50 mg 02/01/25 21:07 02/01/25 21:45 Sumatriptan Succinate 50 Mg Tablet PO 02/01/25 21:08 50 mg ONCE ONE Administration Sumatriptan Succinate 50 mg 02/02/25 00:03 02/02/25 00:56 Sumatriptan Succinate 50 Mg Tablet PO 02/02/25 00:04 50 mg ONCE ONE Administration Medical Decision Making Lab Data Lab results reviewed: Yes I reviewed the patient's lab results Labs: Lab Results 02/01/25 Range/Units 03:00 WBC 7.60 (4.50-11.00) K/uL RBC 3.90 L (4.00-5.20) m/uL Hgb 11.9 L (12.0-16.0) gm/dL Hct 36.8 (33.0-51.0) % MCV 94 (80-100) fL MCH 31 (26-34) pg MCHC 32 (32-36) gm/dL RDW Coeff of Julian 12.6 (11.5-15.5) % Plt Count 306 (140-440) K/uL Neut % (Auto) 24.4 L (42.0-72.0) % Lymph % (Auto) 59.2 H (20-44) % Kent % (Auto) 7.0 (0.0-11.0) % Eos % (Auto) 8.6 H (0.0-7.0) % Baso % (Auto) 0.7 (0.0-3.0) % Neut # (Auto) 1.90 (1.7-7.0) K/uL Lymph # (Auto) 4.50 H (0.90-2.90) K/uL Kent # (Auto) 0.50 (0.00-0.90) K/UL Eos # (Auto) 0.70 H (0.00-0.50) K/uL Baso # (Auto) 0.05 (0.00-0.30) K/uL Abs Immat Gran (auto) 0.01 (0.00-0.30) K/uL Imm/Tot Granulo (auto) 0.1 % D-Dimer Quant (PE/DVT) 0.28 (0.00-0.50) ug/ml VBG pH 7.376 (7.32-7.43) VBG pCO2 50 (40-50) mmHG VBG pO2 < 30.1 (25-47) mmHG VBG HCO3 29 H (21-28) mmol/L Sodium 139 (135-149) mmol/L Potassium 4.1 (3.6-5.1) mmol/L Chloride 104 (96-114) mmol/L Carbon Dioxide 29 (20-32) mmol/L Anion Gap 6 L (7-15) mEq/L BUN 15 (7-30) mg/dL Creatinine 0.9 (0.5-1.5) mg/dL Estimated Creat Clear 65.80 Estimated GFR 77 ml/min Glucose 91 (60-115) mg/dL Lactate 0.9 (0.5-1.9) mmol/L Calcium 9.0 (8.4-10.6) mg/dL Magnesium 2.1 (1.5-2.6) mg/dL Total Bilirubin 0.3 (0.1-1.5) mg/dL AST 31 (12-35) U/L ALT 27 (4-35) U/L Alkaline Phosphatase 54 (40-150) U/L Troponin I < 0.01 (0.01-0.04) ng/mL C-Reactive Protein < 0.5 L (0.5-1.0) mg/dL NT-Pro-B Natriuret Pep < 20 (See Note) pg/mL Total Protein 6.8 (6.0-8.3) g/dL Albumin 4.5 (3.3-5.0) g/dL Ethyl Alcohol 0.10 H (0.01-0.03) % Imaging Data CT scan - head: Attestation: I have reviewed the pertinent imaging results. Radiologist's impression: Patient: JOE SANDERS Facility:?[facility] Patient ID:?[id number] Site Patient ID:?[id number]. Site :?1970 Study:?CT-Head WITHOUT-02/01/2025 3:34:08 AM Ordering Physician:?Jeannie Santiago Final Report: INDICATION: Left facial numbness after syncopal episode. TECHNIQUE: CT head without contrast. COMPARISON: None. FINDINGS: CSF spaces: Within normal limits for age. Brain parenchyma: The shah-white differentiation is maintained. No evidence of intracranial hemorrhage, extra-axial collection, or midline shift. Skull base and calvarium: The visualized paranasal sinuses and mastoid air cells demonstrate no acute or significant findings. The visualized orbits are grossly unremarkable. Calvarium is intact. IMPRESSION: No evidence of acute intracranial hemorrhage, large transcortical infarct, or mass effect. Please note that all CT scans at this facility use dose modulation, iterative reconstruction, and/or weight-based dosing when appropriate to reduce radiation dose to as low as reasonably achievable. Dictated by Medardo Fang MD @ 02/01/2025 3:37:08 AM (Electronic Signature) CT angio head and neck: Attestation: I have reviewed the pertinent imaging results. Radiologist's impression: Patient: JOE SANDERS Facility:?[facility] Patient ID:?[id number] Site Patient ID:?[id number]. Site :?1970 Study:?CT-Neck Angio Angio NON ACUTE 95CC ISOVUE 370-02/01/2025 3:35:25 AM Ordering Physician:?Jeannie Santiago Preliminary Report: COMPARISON: None. PRELIMINARY FINDINGS: CTA head: No sign of large vessel occlusion or significant aneurysm. CTA neck: No sign of dissection or significant stenosis. Dictated by Medardo Fang MD @ 02/01/2025 3:43:40 AM Read by:?Medardo Fang MD @02/01/2025 3:43:43 AM ECG Data Attestation: I personally reviewed and interpreted this ECG as follows: (Normal sinus rhythm, 69 beats per minute. No evidence of any ischemia or infarct.) Prior ECG tracings: available for review Discharge Plan Discharge Clinical Impression: Numbness and tingling of left side of face Syncope Qualifiers: Syncope type: unspecified Qualified Code(s): R55 - Syncope and collapse Patient Disposition: Admitted As Observation Condition: Improved Activity Level: Activity as Tolerated Discharge Diet: Regular Procedures ABG Interpretation ABG Results: 02/01/25 03:00 VBG pH 7.376 VBG pCO2 50 VBG pO2 < 30.1 VBG HCO3 29 H
--- NOTE | 2025-02-01 02:57 | CT_ITS ---
Patient: JOE SANDERS Facility:?[facility] [place] [facility] RIS Patient ID:?[id number] Site Patient ID:?[id number]. Site :?1970 Study:?CT-Neck Angio Angio NON ACUTE 95CC ISOVUE 370-02/01/2025 3:35:25 AM Ordering Physician:Joss Santiago Final Report: DATE: 02/01/2025 CLINICAL HISTORY: Patient with focal neurological deficits TECHNIQUE: Standard helical CT image acquisition through the head and neck was performed after intravenous contrast bolus enhancement. 2D and 3D MIP images for post- processing were performed and interpreted on an independent workstation and 3D images were permanently archived. COMPARISON: CT same day. FINDINGS: The origins of the great vessels from the aortic arch are patent. The origin of the right vertebral artery is patent. The origin of the left vertebral artery is patent. The common carotid arteries are patent There is no stenosis at the origin of the right internal carotid artery. There is no stenosis at the origin of the left internal carotid artery. The rest of the cervical segments of the internal carotid arteries are patent up to their intracranial segments. The intracranial segments of the internal carotid arteries are patent. The right vertebral artery is dominant. The cervical segments of the vertebral arteries are patent. The intracranial segments of the vertebral arteries are patent. The middle cerebral arteries are normal without aneurysm or proximal occlusion identified. The anterior cerebral arteries are normal without aneurysm or proximal occlusion identified. The anterior communicating artery is well visualized and appears normal. The basilar artery is normal without aneurysm or occlusion. The posterior cerebral arteries are normal without aneurysm or proximal occlusion. There is normal opacification of major intracranial venous structures. The visualized lung apices are unremarkable The thyroid gland is unremarkable. The soft tissues of the neck are unremarkable. There are degenerative changes in the cervical spine. IMPRESSION: Normal CT angiogram of the head and neck. Please note that all CT scans at this facility use dose modulation, iterative reconstruction, and/or weight-based dosing when appropriate to reduce radiation dose to as low as reasonably achievable. Dictated by Troy Noonan MD @ 02/01/2025 9:08:54 AM (Electronic Signature)
--- NOTE | 2025-02-01 02:57 | CT_ITS ---
Patient: JOE SANDERS Facility:?[facility] RIS Patient ID:?[id number] Site Patient ID:?[id number]. Site :?1970 Study:?CT-Head Angio Angio NON ACUTE 95CC ISOVUE 370-02/01/2025 3:36:10 AM Ordering Physician:Joss Santiago Final Report: DATE: 02/01/2025 CLINICAL HISTORY: Patient with focal neurological deficits TECHNIQUE: Standard helical CT image acquisition through the head and neck was performed after intravenous contrast bolus enhancement. 2D and 3D MIP images for post- processing were performed and interpreted on an independent workstation and 3D images were permanently archived. COMPARISON: CT same day. FINDINGS: The origins of the great vessels from the aortic arch are patent. The origin of the right vertebral artery is patent. The origin of the left vertebral artery is patent. The common carotid arteries are patent There is no stenosis at the origin of the right internal carotid artery. There is no stenosis at the origin of the left internal carotid artery. The rest of the cervical segments of the internal carotid arteries are patent up to their intracranial segments. The intracranial segments of the internal carotid arteries are patent. The right vertebral artery is dominant. The cervical segments of the vertebral arteries are patent. The intracranial segments of the vertebral arteries are patent. The middle cerebral arteries are normal without aneurysm or proximal occlusion identified. The anterior cerebral arteries are normal without aneurysm or proximal occlusion identified. The anterior communicating artery is well visualized and appears normal. The basilar artery is normal without aneurysm or occlusion. The posterior cerebral arteries are normal without aneurysm or proximal occlusion. There is normal opacification of major intracranial venous structures. The visualized lung apices are unremarkable The thyroid gland is unremarkable. The soft tissues of the neck are unremarkable. There are degenerative changes in the cervical spine. IMPRESSION: Normal CT angiogram of the head and neck. Please note that all CT scans at this facility use dose modulation, iterative reconstruction, and/or weight-based dosing when appropriate to reduce radiation dose to as low as reasonably achievable. Dictated by Troy Noonan MD @ 02/01/2025 9:08:08 AM (Electronic Signature)
--- NOTE | 2025-02-01 02:58 | CRLHL7_ITS ---
For Patients: As a result of the Century Cures Act, medical imaging exams and procedure reports are released immediately into your electronic medical record. You may view this report before your referring provider. If you have questions, please contact your health care provider. INDICATION: Left facial numbness after syncopal episode. TECHNIQUE: CT head without contrast. COMPARISON: None. FINDINGS: CSF spaces: Within normal limits for age. Brain parenchyma: The shah-white differentiation is maintained. No evidence of intracranial hemorrhage, extra-axial collection, or midline shift. Skull base and calvarium: The visualized paranasal sinuses and mastoid air cells demonstrate no acute or significant findings. The visualized orbits are grossly unremarkable. Calvarium is intact. IMPRESSION: No evidence of acute intracranial hemorrhage, large transcortical infarct, or mass effect. Please note that all CT scans at this facility use dose modulation, iterative reconstruction, and/or weight-based dosing when appropriate to reduce radiation dose to as low as reasonably achievable. Dictated by Medardo Fang MD @ 02/01/2025 3:37:08 AM (Electronically Signed)
[2025-02-01 03:14] LABS: HCO3 VBG 29 mmol/L (21-28); Lactate* 0.9 mmol/L (0.5-1.9); PCO2 VBG 50 mmHG (40-50); PO2 VBG < 30.1 mmHG (25-47); pH VBG 7.376 (7.32-7.43)
[2025-02-01 03:15] LABS: Hematocrit* 36.8 % (33.0-51.0); Hemoglobin* 11.9 gm/dL (12.0-16.0); Immature Granulocytes Abs Auto 0.01 K/uL (0.00-0.30); Immature Granulocytes Pct Auto 0.1 %; Lymphocytes Absolute Auto 4.50 K/uL (0.90-2.90); Mean Corpuscular HGB Conc 32 gm/dL (32-36); Mean Corpuscular Hemoglobin 31 pg (26-34); Mean Corpuscular Volume 94 fL (80-100); RDW Coefficient of Variation % 12.6 % (11.5-15.5); Red Blood Count* 3.90 m/uL (4.00-5.20); White Blood Count* 7.60 K/uL (4.50-11.00)
[2025-02-01 03:18] LABS: Slide Review Reflex No
[2025-02-01 03:32] LABS: Albumin* 4.5 g/dL (3.3-5.0); Chloride* 104 mmol/L (96-114); Potassium* 4.1 mmol/L (3.6-5.1); Sodium* 139 mmol/L (135-149)
[2025-02-01 03:34] LABS: Blood Urea Nitrogen* 15 mg/dL (7-30); Creatinine* 0.9 mg/dL (0.5-1.5); Est. Creatinine Clearance* 65.80; Estimated Glomerular Filt Rate 77 ml/min
[2025-02-01 03:35] LABS: Alanine Aminotransferase* 27 U/L (4-35); Alkaline Phosphatase* 54 U/L (40-150); Anion Gap 6 mEq/L (7-15); Aspartate Amino Transferase* 31 U/L (12-35); Bilirubin Total* 0.3 mg/dL (0.1-1.5); Calcium* 9.0 mg/dL (8.4-10.6); Carbon Dioxide* 29 mmol/L (20-32); Glucose* 91 mg/dL (60-115); Total Protein* 6.8 g/dL (6.0-8.3)
[2025-02-01 03:36] LABS: Ethanol* 0.10 % (0.01-0.03)
[2025-02-01 03:44] LABS: D Dimer Quantitative* 0.28 ug/ml (0.00-0.50)
[2025-02-01 03:49] LABS: NT Pro B Type NatriureticPept* < 20 pg/mL (See Note)
--- NOTE | 2025-02-01 06:21 | W.PM.TELEH&P ---
Telehealth- H&P: HPI History of Present Illness Date Seen: 02/01/25 Chief complaint: L face numbness, trouble breathing Narrative: Ashley Hatch is seen as an Interactive Telehealth visit. Ashley Hatch is a 54 year old female with a history of multiple sclerosis who presented after syncopal episode. Patient reports that she has been having significant headaches for the past month. Reports that the are all over, stabbing, she does have a history of occipital neuralgia and is planning to get some injection so she thinks that the headaches may be related to the occipital neuralgia. She has had some generalized weakness but no focal weakness. She did picker packer a prescription for prednisone for a possible MS flare given her worsening weakness but had yet to start it. She did have a few drinks the night prior to admission to celebrate the holidays. She was talking to her significant other when she felt nauseous, he reported that her eyes rolled back in her head and she was unconscious for about a minute. When she awoke she was back to her baseline. She did not have any tonic-clonic movements, loss of bowel or bladder control or tongue biting. When she awoke she did have numbness in the left face but she did not have slurred speech. She did not have any facial droop. She did not have any new focal weakness or numbness. In the ER discussed the case with the on-call neurology provider who recommended MRI of the brain with and without contrast. Review of Systems Status of ROS: Reports: 10 or more systems reviewed and unremarkable except as noted in History and below [facility] Medical History History of tibial fracture ?Z87.81 - Personal history of (healed) traumatic fracture (ICD-10) Hiatal hernia ?K44.9 - Diaphragmatic hernia without obstruction or gangrene (ICD-10) Blood disorder ?D75.9 - Disease of blood and blood-forming organs, unspecified (ICD-10) Asthma ?J45.909 - Unspecified asthma, uncomplicated (ICD-10) Hand fracture ?S62.90XA - Unspecified fracture of unspecified wrist and hand, initial encounter for closed fracture (ICD-10) Wrist pain ?M25.539 - Pain in unspecified wrist (ICD-10) Surgical History S/P right knee arthroscopy (06/24/07) ?Z98.890 - Other specified postprocedural states (ICD-10) History of hand surgery (09/17/08) ?Z98.890 - Other specified postprocedural states (ICD-10) S/P ORIF (open reduction internal fixation) fracture (12/31/06) ?Z98.890 - Other specified postprocedural states (ICD-10) ?Z87.81 - Personal history of (healed) traumatic fracture (ICD-10) Status post left foot surgery (03/08/17) ?Z98.890 - Other specified postprocedural states (ICD-10) H/O hand surgery (08/31/19) ?Z98.890 - Other specified postprocedural states (ICD-10) H/O hand surgery (12/03/21) ?Z98.890 - Other specified postprocedural states (ICD-10) H/O: hysterectomy ?Z90.710 - Acquired absence of both cervix and uterus (ICD-10) Social History Smoking Status: Current every day smoker What tobacco products do you use: cigarettes Do you use any of these nicotine containing products: None Second hand tobacco smoke exposure: No How often do you have a drink containing alcohol: 4 or more times a week How many standard drinks containing alcohol do you have on a typical day: 1 or 2 AUDIT-C Alcohol total score: 4 Non-prescribed substance use: denies use Caffeine: Yes Meds Home Medications and Allergies Home Medications ?Medication ?Instructions ?Recorded ?Confirmed ?Type armodafinil 250 mg tablet 250 mg PO DAILY 09/20/21 10/22/23 History clonazepam 2 mg tablet 2.5 mg PO DAILY 09/20/21 10/22/23 History dextroamphetamine-amphetamine 20 20 mg PO TID 09/20/21 10/22/23 History mg tablet duloxetine 60 mg capsule,delayed 60 mg PO DAILY 09/20/21 10/22/23 History release fluticasone propionate 50 intranasal PRN 12/01/21 01/06/22 History mcg/actuation nasal spray,suspension duloxetine 30 mg capsule,delayed 30 mg PO QDAY 12/11/21 10/22/23 History release pantoprazole 40 mg tablet,delayed 40 mg PO DAILY 10/22/23 10/22/23 History release methylprednisolone 4 mg tablets in See Rx Instructions PO .COMPLEX 10/23/23 Rx a dose pack (Medrol (Foster)) #21 ea methylprednisolone 4 mg tablets in See Rx Instructions PO .COMPLEX 10/23/23 Rx a dose pack (Methylpred DP) #21 ea Allergies Allergy/AdvReac Type Severity Reaction Status Date / Time prochlorperazine (From Allergy Verified 02/01/25 04:21 Compazine) Exam Narrative Exam Narrative: Physical Exam GENERAL: ?vital signs reviewed, well developed and nourished, in no distress HEENT: pupils are equal round and reactive to light, extraocular movements are grossly within normal limits and oral mucosa is moist. NECK: Supple without lymphadenopathy or thyromegaly according to nursing staff examination observation HEART: Regular rate and rhythm without any rubs, murmurs, or gallops. LUNGS: Clear to auscultation bilaterally with good air movement throughout ABDOMEN: Observation from nurse assisted exam, abdomen appears soft, nontender, and nondistended with Positive bowel sounds noted. EXTREMITIES: Strength and sensation is observed to be grossly within normal limits in the upper and lower extremities.? No focal strength deficit is observed. left facial numbness. No drift SKIN:? Observed warm and dry with color normal Const Vital Signs, click to edit/add: Vital Signs - 24 hr 02/01/25 02:34 02/01/25 02:43 02/01/25 02:58 Temperature 97.8 F Pulse Rate [Right Pulse Oximeter] 81 Respiratory Rate 20 Respiratory Rate [Left Anterior Head] 18 Blood Pressure [Right Upper Arm] 126/84 Pulse Oximetry 92 95 Oxygen Delivery Method Room Air 02/01/25 06:00 02/01/25 06:07 Temperature 97.8 F 97.8 F Pulse Rate [Right Pulse Oximeter] 74 Respiratory Rate 20 Respiratory Rate [Left Anterior Head] Blood Pressure [Right Upper Arm] 118/74 Pulse Oximetry 95 Oxygen Delivery Method Room Air Hospitalist - H&P: Result Labs Labs: Short CBC 02/01/25 Range/Units 03:00 WBC 7.60 (4.50-11.00) K/uL Hgb 11.9 L (12.0-16.0) gm/dL Hct 36.8 (33.0-51.0) % Plt Count 306 (140-440) K/uL BMP 02/01/25 03:00 Sodium 139 Potassium 4.1 Chloride 104 Carbon Dioxide 29 BUN 15 Creatinine 0.9 Glucose 91 Calcium 9.0 Cardiac Enzymes 02/01/25 Range/Units 03:00 Troponin I < 0.01 (0.01-0.04) ng/mL Liver Function 02/01/25 Range/Units 03:00 Total Bilirubin 0.3 (0.1-1.5) mg/dL AST 31 (12-35) U/L ALT 27 (4-35) U/L Alkaline Phosphatase 54 (40-150) U/L Albumin 4.5 (3.3-5.0) g/dL Assessment and Plan Assessment and plan (1) Numbness and tingling of left side of face: Status: Acute (2) Syncope: Status: Acute (3) Alcohol intoxication with blood alcohol level 0.08-0.29: Status: Acute Plan Syncopal episode Unclear etiology Monitor on telemetry to look for arrhythmia Monitor for seizure activity Paresthesia of the left side of the face Most likely related to known history of MS but TIA/stroke is on the differential ER provider discussed the case with stroke neurology who recommended MRI brain with and without contrast Monitor on telemetry for arrhythmia Check B12 and folate If evidence of stroke would obtain echocardiogram Stroke neurology did not recommend dual antiplatelet therapy CTA head and neck with no acute findings, unable to personally review due to technical issue Alcohol use Does not appear actively intoxicated but blood alcohol was 0.1 Does not drink heavily, I do not think this played a significant role in her current presentation Prior to admission home medications that were felt to be needed immediately have been ordered. The remainder of the home medications will await pharmacy reconciliation and will be ordered by the attending provider in the a.m. Telehealth Visit: Today's History and Physical is provided via interactive telehealth by Dr. Andreas Cornejo MD. Patient is located at [place], [place]. Provider is located at [facility]. Nursing staff assisted with the patient's exam. The visit being done today meets criteria for a telehealth visit and the patient or patients parent/guardian is aware the visit is a telehealth visit. Camera Start Time: 626 Camera End Time: 637 Medical Complexity: High ~~~~~~~~~~~~~~~~ Dr. Andreas Cornejo Telehealth: Statement Statement Telehealth Visit: Today's History and Physical is provided via interactive telehealth by Andreas Cornejo MD.? Patient is located at [facility].? Provider is located at [facility].? Nursing staff assisted with the patient's exam. The visit being done today meets criteria for a telehealth visit and the patient or patient?s parent/guardian is aware the visit is a telehealth visit.
--- NOTE | 2025-02-01 07:44 | PC.NURSE ---
Pt pleasant,?alert?and oriented.?VSS. Pt?requesting several times to go outside for cigarettes, staff educated pt on policy.?Currently?states?headache, though has had improvement with prn.?Pt in bed, appears to be resting, call light within reach.?
[2025-02-01 08:30] LABS: Vitamin B12* 458 pg/mL (243-894)
[2025-02-01] MEDS: SODIUM CHLORIDE 0.9 % (FLUSH) 10 ML SYRINGE 5 ML IVF ×2 (10:09→21:26)
[2025-02-01] MEDS: NICOTINE 21 MG PATCH 1 PATCH TRANSDERMA (11:14)
[2025-02-01] MEDS: ACETAMINOPHEN 325 MG TABLET 650 MG PO ×2 (13:27→21:22)
[2025-02-01] MEDS: DEXTROAMPHETAMINE AMPHETAMINE 20 MG PO (13:55)
[2025-02-01] MEDS: DULOXETINE 30 MG CAPSULE DR 90 MG PO (15:57)
[2025-02-01] MEDS: KETOROLAC 10 MG TABLET PO ×2 (16:06→21:24)
--- NOTE | 2025-02-01 18:43 | PC.NURSE ---
Pt is doing well today. VSS. Pain to back of neck and base of head has been controlled with scheduled Tylenol, PRN Toradol and ice. Pt is independent is room, tolerating oral intake and voiding without problems. Pt has denied any SOB, dizziness or lightheadedness. Pt has been in normal sinus rhythm entire shift. Significant other is at bedside. Pt resting well at this time.
--- NOTE | 2025-02-01 21:14 | P.CCN_ITS ---
Subjective Subjective Time Seen by Provider: 20:55 Date Seen: 02/01/25 Interval history: Patient complains of ongoing headache, feels like it is getting worse or that the medications are not helping. She wonders if she should have started the prednisone prescription from the pain clinic afterall. She was also prescribed Neurtec, a migraine medicine, but is waiting for insurance to approve it. She was hoping to get that, but I informed her that is not on our formulary. She notes that the numbness she had in her left lower face went away this morning, but now she is having numbness in her left upper face where the stabbing pain is. She denies any focal numbness, weakness or tingling elsewhere. I have reviewed the ER and hospitalist notes from earlier today, the neurology note (Dr. Patricia) from earlier today in the [facility] record, and the CT and CTA results from today. Objective Objective Data Details: T 97.9, BP 109/75, HR 77, RR 16, O2 sats 98%RA General: No acute distress. Awake, alert, oriented x3. No pallor. No jaundice. Oropharynx: Clear. Mucous membranes moist. Cardiovascular: Regular rate and rhythm. No murmurs, gallops, or rubs. Respiratory: Clear to auscultation bilaterally. No wheezes or crackles. Neuro: Other than reported left forehead numbness, there are no focal deficits. Cranial nerves 2-12 are otherwise intact. Extraocular movements are full. No nystagmus. No facial asymmetry. Tongue is midline. Vision is grossly intact. Strength is 5/5 in all 4 extremities. Again, patient reports diminished sensation on the left forehead only, otherwise light touch sensation is intact in face body and extremities. Coordination is intact in upper and lower extremities. Assessment and Plan Assessment and plan (1) Numbness and tingling of left side of face: Problem comment: - paresthesia of left upper face this is associated with pain and migraine, patient had CT and CTA which were unremarkable earlier today, I do not think they need to be repeated at this time. Suspect MS, but TIA and stroke her on the differential, MRI is ordered and is not available until tomorrow. Continue to monitor on telemetry and with neuro checks. Discussed treatment of headache with the patient and she is willing to try Imitrex; will also start a prednisone taper that she had been prescribed by the outpatient pain clinic. Status: Acute (2) Syncope: Status: Acute (3) Alcohol intoxication with blood alcohol level 0.08-0.29: Status: Acute Plan Syncopal episode Unclear etiology Monitor on telemetry to look for arrhythmia Monitor for seizure activity Paresthesia of the left side of the face Most likely related to known history of MS but TIA/stroke is on the differential ER provider discussed the case with stroke neurology who recommended MRI brain with and without contrast Monitor on telemetry for arrhythmia Check B12 and folate If evidence of stroke would obtain echocardiogram Stroke neurology did not recommend dual antiplatelet therapy CTA head and neck with no acute findings, unable to personally review due to technical issue Alcohol use Does not appear actively intoxicated but blood alcohol was 0.1 Does not drink heavily, I do not think this played a significant role in her current presentation Prior to admission home medications that were felt to be needed immediately have been ordered. The remainder of the home medications will await pharmacy reconciliation and will be ordered by the attending provider in the a.m. Telehealth Visit: Today's History and Physical is provided via interactive telehealth by Dr. Andreas Cornejo MD. Patient is located at [place], [place]. Provider is located at [facility]. Nursing staff assisted with the patient's exam. The visit being done today meets criteria for a telehealth visit and the patient or patients parent/guardian is aware the visit is a telehealth visit. Camera Start Time: 626 Camera End Time: 637 Medical Complexity: High ~~~~~~~~~~~~~~~~ Dr. Andreas Cornejo
--- NOTE | 2025-02-02 | CRLHL7_ITS ---
For Patients: As a result of the Century Cures Act, medical imaging exams and procedure reports are released immediately into your electronic medical record. You may view this report before your referring provider. If you have questions, please contact your health care provider. Indication: Left facial numbness, history of multiple sclerosis Technique: Multiplanar, multisequence MR images of the brain were obtained before and after the administration of intravenous gadolinium. An MS protocol was utilized. 13 cc Dotarem intravenous gadolinium Comparison: None available. Findings: On midline sagittal T1 images, there are preserved flow voids and sagittal sinuses. The corpus callosum is preserved in signal and contour. The pituitary gland is unremarkable without evidence of remodeling of the sella turcica. There is no significant cerebellar tonsillar ectopia. On diffusion-weighted sequences, there is no evidence of acute or subacute infarct. There are scattered foci of T2/FLAIR hyperintensity within the pericallosal subcortical and periventricular white matter commensurate with history of demyelinating disease. The remaining brain parenchyma is otherwise preserved in signal intensity for age. There is no evidence of abnormal contrast enhancement. The flow voids at the skull base are unremarkable. The orbits and their contents are within normal limits. There is minimal chronic mucosal thickening within the paranasal sinuses. The mastoid air cells are clear. Impression: Scattered T2/FLAIR subcortical, pericallosal and periventricular hyperintensities commensurate with history of demyelinating disease. No evidence of abnormal contrast enhancement to suggest acute demyelination. No evidence of restricted diffusion. Dictated by Laurent Watts MD @ 02/02/2025 2:01:28 PM (Electronically Signed)
[2025-02-02 05:00] VITALS: BP 115/79; PULSE 79; RESP 18; TEMP 36.3; O2SAT 95
--- NOTE | 2025-02-02 06:25 | PC.NURSE ---
End of shift report?: VSS. Afebrile. Pt complained?of tingling?to L?upper forehead area?for the majority of the shift, MD Hodges notified.?Neuros are intact.?Pt reports tingling resolved this morning.?Pt also complains of a headache?near the L temporal region?rating?it?an /.?Prn pain meds?and an ice pack?given without relief, MD Hodges contacted and sumatriptan?and prednisone?was ordered and given. Upon?reassessment,?pt is sleeping. In the morning?when asked about pain relief,?patient?reports?improvement. Pt is?ind?in?room, call light within reach.?
[2025-02-02 07:00] VITALS: BP 115/82; PULSE 80; RESP 18; TEMP 36.7; O2SAT 97
[2025-02-02 07:45] VITALS: PULSE 80
[2025-02-02] MEDS: KETOROLAC 10 MG TABLET PO ×2 (08:21→14:04)
[2025-02-02] MEDS: ACETAMINOPHEN 325 MG TABLET 650 MG PO ×2 (08:21→12:32)
[2025-02-02] MEDS: OMEPRAZOLE 20 MG CAPSULE DR 40 MG PO (08:23)
[2025-02-02] MEDS: DULOXETINE 30 MG CAPSULE DR 90 MG PO (09:59)
[2025-02-02] MEDS: DEXTROAMPHETAMINE AMPHETAMINE 20 MG PO ×2 (09:59→12:31)
[2025-02-02] MEDS: SODIUM CHLORIDE 0.9 % (FLUSH) 10 ML SYRINGE 5 ML IVF (11:20)
[2025-02-02] MEDS: NICOTINE 21 MG PATCH 1 PATCH TRANSDERMA (12:31)
[2025-02-02 12:33] VITALS: BP 118/82; PULSE 85; RESP 18; TEMP 36.4; O2SAT 97
--- NOTE | 2025-02-02 18:32 | PC.NURSE ---
End of shift-- Pleasant, cooperative, alert and oriented patient discharged to home ambulatory this afternoon. VSS and pt is afebrile. SPO2 maintained >90% on RA. Patient c/o a headache today and was given Tylenol and Toradol and denied relief. Md was notified. Telemetry showed NSR. Pt had MRI today and tolerated it well. Discharge education was provided including diagnosis info, symptoms to report, medications and follow up plan. SL was removed with tip intact.
--- NOTE | 2025-02-03 16:56 | P.DS_ITS ---
DS: Providers Provider Date Seen: 02/03/25 Date of admission: 02/01/25 05:38 Primary care physician: Marlo Steward MD Admitting Clinician: Dania Hodges MD Consults: 02/01/25 06:18 Consult to Physical Therapy [CONS] Routine Comment: Reason(s) for PT Consult:: Balance Assessment Any Restrictions?:: No Restrictions Attending Physician on discharge: Eliel Olvera MD Date of Discharge: 02/03/25 DS: Diagnosis Discharge Diagnosis (1) Numbness and tingling of left side of face: Status: Acute Problem details: - paresthesia of left upper face this is associated with pain and migraine, patient had CT and CTA which were unremarkable earlier today, I do not think they need to be repeated at this time. Suspect MS, but TIA and stroke her on the differential, MRI is ordered and is not available until tomorrow. Continue to monitor on telemetry and with neuro checks. Discussed treatment of headache with the patient and she is willing to try Imitrex; will also start a prednisone taper that she had been prescribed by the outpatient pain clinic. - MR scan 02/02/2025: Findings consistent with known demyelinating disease without findings of acute flare and no other pathology including stroke, tumor, etc. -Recommended completion of prednisone burst therapy and follow-up with her PCP and neurologist, which she agrees to. She tells me she has previously been assessed by a MS neurologist and now refuses cares and treatments with a MS physician due to risks of side effects. (2) Syncope: Status: Acute Problem details: - possible syncopal episode on 02/01/2026 - No findings during hospitalization 02/01/2026-02/02/2025 - Follow-up with PCP (3) Alcohol intoxication with blood alcohol level 0.08-0.29: Status: Acute Problem details: - KANCHAN 0.1 on 02/01/2025 - Cautioned about any alcohol consumption while working with pain management (4) MS (multiple sclerosis): Status: Acute (5) Narcolepsy: Status: Acute DS: Summary Hospital Course Hospital Course: Admission history of present illness: ?54 year old female with a history of multiple sclerosis who presented after syncopal episode. Patient reports that she has been having significant headaches for the past month. Reports that the are all over, stabbing, she does have a history of occipital neuralgia and is planning to get some injection so she thinks that the headaches may be related to the occipital neuralgia. She has had some generalized weakness but no focal weakness. 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 She did have a few drinks the night prior to admission to celebrate the holidays. She was talking to her significant other when she felt nauseous, he reported that her eyes rolled back in her head and she was unconscious for about a minute. When she awoke she was back to her baseline. She did not have any tonic-clonic movements, loss of bowel or bladder control or tongue biting. When she awoke she did have numbness in the left face but she did not have slurred speech. She did not have any facial droop. She did not have any new focal weakness or numbness. ?In the ER discussed the case with the on-call neurology provider who recommended MRI of the brain with and without contrast.? Patient remained stable throughout the remainder of hospital stay. Did have family migraine headache while in hospital which was treated with Imitrex. MRI demonstrated no evidence of acute stroke, no neoplasm, no acute inflammatory changes, only the chronic demyelinating changes consistent with known multiple sclerosis. Patient agreeable to have follow-up with her physicians. She declines referral to multiple sclerosis specialist. Time Spent with Patient Time attestation: Total time spent providing and/or coordinating discharge services: Exam Narrative: Exam Narrative: General: No acute distress. Awake, alert, oriented x3. No pallor. No jaundice. Oropharynx: Clear. Mucous membranes moist. Cardiovascular: Regular rate and rhythm. No murmurs, gallops, or rubs. Respiratory: Clear to auscultation bilaterally. No wheezes or crackles. Neuro: Other than reported left forehead numbness, there are no focal deficits. Cranial nerves 2-12 are otherwise intact. Extraocular movements are full. No nystagmus. No facial asymmetry. Tongue is midline. Vision is grossly intact. Strength is 5/5 in all 4 extremities. Again, patient reports diminished sensation on the left forehead only, otherwise light touch sensation is intact in face body and extremities. Coordination is intact in upper and lower extremities. DS: Data Imaging MR Brain: Radiologist's impression: Impression: Scattered T2/FLAIR subcortical, pericallosal and periventricular hyperintensities commensurate with history of demyelinating disease. No evidence of abnormal contrast enhancement to suggest acute demyelination. No evidence of restricted diffusion. Discharge Plan Discharge Disposition: Home, Self-Care Date of Admission: 02/01/25 05:38 Attending Provider on Discharge: Eliel Olvera Primary Care Provider: Marlo Steward Condition: Improved Anticipated Discharge Date/Time: 02/02/25 15:00 Discharge Medications: Continued duloxetine 30 mg capsule,delayed release(DR/EC) 90 mg PO DAILY dextroamphetamine-amphetamine 20 mg tablet 20 mg PO TID Rx Instructions: 0800/1200/1600 pantoprazole 40 mg tablet,delayed release (DR/EC) 40 mg PO DAILY clonazepam 1 mg tablet 2.5 mg PO HS prednisone 10 mg tablet 10 - 30 mg PO .UD Rx Instructions: TAKE 3 TABLETS BY MOUTH DAILY FOR 5 DAYS, 2 TABLETS DAILY FOR 5 DAYS, 1 TABLET DAILY FOR 5 DAYS. fluticasone propionate 50 mcg/actuation spray,suspension 1 spray INTRANASAL DAILY PRN Patient Comments: SHAKE LIQUID AND USE 1 SPRAY IN EACH NOSTRIL EVERY DAY Discharge Orders: Discharge Order (Routine); Ordered 02/02/25 Ordered By: Eliel Olvera Patient Education: Multiple Sclerosis (DC), Chronic Back Pain (DC), Chronic Neck Pain (GEN) Additional Instructions: 1. Follow-up with primary acute care nurse in 5-15 days 2. Follow-up with your chronic pain clinicians as planned and as needed 3. Recommend follow-up with your neurologist/MS clinician in next 3-6 weeks, sooner if needed 4. Recommend avoidance of alcohol consumption while being treated for chronic pain Activity Level: Activity as Tolerated Discharge Diet: Regular Follow Up Appointments: Marlo Steward MD [Primary Care Provider, Family Practice] - 02/12/25 10:45 am Referral Note: [facility] for follow up with PCP Forms: [employer] Info Instructions
== END 2025-02-02 17:00 | disposition home or self-care (01) ==
LOC: ED 05:05 → MEDSURG 05:42
PROVIDERS: Internal Medicine; Admitting Provider Family Medicine; Emergency Provider Family Medicine; PCP Surgery; Visit Provider Family Medicine
DX: R20.2 Paresthesia of skin (principal); R55 Syncope and collapse; F10.129 Alcohol abuse with intoxication, unspecified; Y90.8 Blood alcohol level of 240 mg/100 ml or more; G35.D Multiple sclerosis, unspecified; G47.419 Narcolepsy without cataplexy; R51.9 Headache, unspecified
CPT/HCPCS: 36415; 70450; 70496; 70498; 70553; 80053; 82077; 82607; 82747; 82803; 83605; 83735; 83880; 84484; 85025; 85379; 86140; 93005; 94761; 96374; 97116; 97161; 99284; 99285; A9270; A9575; G0378; J1885; J7512; Q9967; S4990